=== PATIENT | female | born 1990 | race Caucasian/White ===

== ENCOUNTER 2024-05-27 06:59 | Outpatient (OUT) | payer OTHER, SELFPAY ==
--- NOTE | 2024-05-27 | US_ITS ---
[address] [address] Patient Name: PEPITO LYONS MRN: [id number] date: 1990 Sex: F Assigned Patient Location: Current Patient Location: US Accession/Order Number: [id number] Exam Date: 05/27/2024 07:15 Report Date: 05/27/2024 12:58 At the request of: GOLDEN YANG Procedure: US OB transvaginal EXAMINATION: US OB transvaginal HISTORY: Amenorrhea N91.2 COMPARISON: No relevant comparison available. FINDINGS: GESTATIONAL SAC: Present and normal appearing. YOLK SAC: Present and normal appearing. POLE: Present and normal appearing. CARDIAC: Present. UTERUS: Normal size and appearance. OVARIES: Right: Normal. Left: Normal. CERVIX: 5.1 cm in length and closed. CUL-DE-SAC: Normal. OTHER: None. AGE BY LMP: 17 weeks 5 days CHANDAN BY LMP: 01/08/2025 AGE BY US CRL: 6 weeks 6 days CHANDAN BY US CRL: 01/14/2025 US/US OB transvaginal IMPRESSION: 1. Single live intrauterine . Electronically authenticated by: MAKENNA MELISSA Date: 05/27/2024 12:58
== END 2024-05-27 07:00 | disposition home or self-care (01) ==
PROVIDERS: Visit Provider Midwife
DX: Z34.91 Encounter for supervision of normal pregnancy, unspecified, first trimester (principal); Z3A.01 Less than 8 weeks gestation of pregnancy; N91.2 Amenorrhea, unspecified
CPT/HCPCS: 76817

== ENCOUNTER 2024-11-19 19:58 | Outpatient (OUT) | payer OTHER, SELFPAY ==
--- NOTE | 2024-11-19 20:02 | US_ITS ---
[place] [address] Patient Name: PEPITO LYONS MRN: [facility]:[id number] date: 1990 Sex: F Assigned Patient Location: [facility] Current Patient Location: Accession/Order Number: [id number] Exam Date: 11/20/2024 10:06 Report Date: 11/20/2024 10:16 At the request of: GOLDEN YANG APRN, CNM Procedure: US OB BPP w non-stress Biophysical profile. Reason for exam: Type 1 diabetes COMPARISON: None TECHNIQUE: Transabdominal imaging of the gravid uterus was obtained. FINDINGS: The roving winder reports a BPP of 8 out of 8. MASON is normal at 13.6 cm. heart rate 139 bpm. US/US OB BPP w non-stress IMPRESSION: BPP 8 out of 8. Impression dictated by: Luc Echeverria Jr., D.O. 11/20/2024 10:16 AM Dictation Location: [place] [address] Electronically authenticated by: [id number] Y Date: 11/20/2024 10:16
[2024-11-19 20:26] VITALS: BP 129/76; PULSE 89
== END 2024-11-19 20:58 | disposition home or self-care (01) ==
LOC: US 19:59 → FBC 20:00
PROVIDERS: Visit Provider Midwife
DX: O24.913 Unspecified diabetes mellitus in pregnancy, third trimester (principal); Z3A.32 32 weeks gestation of pregnancy; E10.9 Type 1 diabetes mellitus without complications
CPT/HCPCS: 76818

== ENCOUNTER 2024-11-23 19:53 | Outpatient (OUT) | payer OTHER, SELFPAY ==
--- OUTSIDE RECORDS SUMMARY | 2024-11-09 15:50 | XMS_ITS | Encounter Summary ---
Author Organization [facility] Address [address] [address] Care Team Providers Care Rn Provider Relations Name Role Phone Unavailable Primary Care Provider Unavailabl e Reason for Visit * Reason Comments Routine Visit Encounter Details Date Type Department Care Team (Late st Contact Info) Description 11/09/2024 3:50 PM EDT Routine [facility] [address] [place] [phone] Gabriel Mendez DO [address] Ehsan [place], [facility]11 Third trimester ([facility]); 31 weeks gestation of ([facility]) Social History Tobacco Use Types Packs/Day Years Used Date Smoking Tobacco: Never Smokeless Tobacco: Never Alcohol Use Standard Drinks/Week Comments Not Currently 0 (1 standard drink = 0.6 oz pur e alcohol) Estimated Date of Delivery Comme nts Yes 01/14/2025 Based on Ultraso und Sex and Gender Information Value Date Recorded Sex Assigned at Not on file Legal Sex Female 2:11 PM EST Gender Identity Not on file Sexual Orientation Not on file documented as of this encounter Last Filed Vital Signs Vital Sign Reading Time Taken Comments Blood Pressure 114/68 11/09/2024 4:00 PM EDT Pulse - - Temperature - - Respiratory Rate - - Oxygen Saturation - - Inhaled Oxygen Concentration - - Weight 84.7 kg (186 lb 12.8 oz) 11/09/2024 4:00 PM EDT Height - - Body Mass Index 33.09 05/27/2024 8:49 AM EST documented in this encounter Progress Notes * Marielos Mccain LPN - 11/09/2024 3:50 PM EDT Reason for Appointment: Patient ID: Alyse Munguia is a 34 y.o. female who presents for Routine Visit Patient presents today for Consult appointment. MEDICATIONS Current Outpatient Medications Medication Instructions Acetone, Urine, Test (Ketone Test) strip Test urine if glucose over 200 aspirin 81 mg, Oral, Daily RT Continuous Glucose Sensor (FreeStyle Magan 3 Plus Sensor) misc USE DIRECTED REPLACING SENSOR EVERY 15 DAYS insulin lispro (HumaLOG Gregorio KwikPen) 100 UNIT/ML pen INJECT UP TO 50 UNITS PER DAY Lantus SoloStar 100 UNIT/ML pen 10 units [id number]-MF-[id number]-3 ( Gummies/DHA & FA) 0.4-32.5 MG chewable tablet Oral ReliOn Pen [place] 32G X 4 MM misc USE 5-6 TIMES DAILY WITH INSULIN ALLERGIES No Known Allergies PROBLEMS Active Ambulatory Problems Diagnosis Date Noted No Active Ambulatory Problems Resolved Ambulatory Problems Diagnosis Date Noted No Resolved Ambulatory Problems Past Medical History: Diagnosis Date History of benign brain tumor Type 1 diabetes (HCC) HISTORY PAST MEDICAL HISTORY SOCIAL HISTORY Past Medical History: Diagnosis Date History of benign brain tumor Type 1 diabetes (HCC) Social History Tobacco Use Smoking status: Never Smokeless tobacco: Never Substance Use Topics Alcohol use: Not Currently Drug use: Never FAMILY HISTORY No family history on file. SURGICAL HISTORY Past Surgical History: Procedure Laterality Date APPENDECTOMY BRAIN TUMOR EXCISION SECTION, LOW TRANSVERSE REVIEW OF SYSTEMS Review of Systems: Review of Systems Constitutional: Negative. HENT: Negative. Eyes: Negative. Respiratory: Negative. Cardiovascular: Negative. Gastrointestinal: Negative. Genitourinary: Negative. Musculoskeletal: Negative. Skin: Negative. Neurological: Negative. All other systems reviewed and are negative. Hematological: Negative. Endocrine: Negative. Allergic/Immunologic: Negative. OBJECTIVE Objective: Physical Exam Constitutional: Appearance: Normal appearance. She is well-developed. Cardiovascular: Rate and Rhythm: Normal rate and regular rhythm. Pulmonary: Effort: Pulmonary effort is normal. Breath sounds: Normal breath sounds. Abdominal: General: Bowel sounds are normal. There is no distension. Palpations: Abdomen is soft. Tenderness: There is no abdominal tenderness. There is no guarding or rebound. Musculoskeletal: General: No swelling. Normal range of motion. Right lower leg: No edema. Left lower leg: No edema. Neurological: Mental Status: She is alert and oriented to person, place, and time. Skin: General: Skin is warm and dry. Psychiatric: Mood and Affect: Mood normal. Behavior: Behavior normal. Vitals and nursing note reviewed. Exam conducted with a virtualization architect present. Vitals: Estimated body mass index is 33.09 kg/m?? as calculated from the following: Height as of 05/27/24: 5' 3 . Weight as of this encounter: 186 lb 12.8 oz. BP: 114/68 Patient's last menstrual period was 04/03/2024 (exact date). ASSESSMENT & PLAN ICD-10-CM 1. Third trimester ([facility]) Z34.93 2. 31 weeks gestation of ([facility]) Z3A.31 Patient presents to office for co-management for Type 1 DM in . Discussed delivery with patient and patient will have repeat on 12/16/24. Patient advised to ensure she is scheduledfor return OB with Rivka Thomas. Patient will continue with routine OB care schedule. Documented by Marielos Mccain LPN on behalf of: Gabriel Mendez DO documented in this encounter Plan of Treatment Upcoming Encounters Date Type Department Care Team (Late st Contact Info) Description 11/26/2024 8:30 AM EDT Routine [facility] [address] [place] [phone] Gabirel Mendez DO [address] [place] [address] 11/30/2024 5:00 PM EDT Routine [facility] [address] [place] [address] Floridalma Thomas CNM [address] [place], [place] [id number] 12/07/2024 5:30 PM EDT Routine [facility] [address] [place] [address] Floridalma Thomas CNM [address] [place], [place] [id number] 12/14/2024 5:00 PM EDT Routine [facility] [address] [place] [address] Floridalma Thomas CNM [address] [place], [place] [id number] documented as of this encounter Goals Goal Patient Goal Type Associated Problems Recent Progress Patient-Stated? Author Reminders Care Plan OB Reminders No Open Scheduling, Background documented as of this encounter Visit Diagnoses Diagnosis Third trimester ([facility]) state, incidental 31 weeks gestation of ([facility]) documented in this encounter Additional Health Concerns Active Problems Noted Date Diagnosed Date OB Reminders 07/14/2024 documented as of this encounter
--- OUTSIDE RECORDS SUMMARY | 2024-11-16 16:00 | XMS_ITS | Encounter Summary ---
Author Organization [facility] Address [address] [facility] [place] [address] Care Team Providers Care Reverberatory Furnace Operator Name Role Phone Unavailable Primary Care Provider Unavailabl e Encounter Details Date Type Department Care Team (Latest Contact Info) Description 11/16/2024 4:00 PM EDT [facility] [address] [place] [address] Floridalma Thomas, [place] [address] [place], [place] [phone] Third trimester ([facility]) (Primary Dx); Type 1 diabetes mellitus without complication (HCC); Insulin controlled gestational diabetes mellitus (GDM) in second trimester ([facility]); Encounter for supervision of other normal , third trimester ([facility]); Screening for iron deficiency anemia Social History [...] all orders for this visit: Third trimester ([facility]) Type 1 diabetes mellitus without complication (HCC) - US biophysical profile wo non stress testing; Future - US biophysical profile wo non stress testing; Future - US biophysical profile wo non stress testing; Future - US OB follow up transabdominal approach; Future Insulin controlled gestational diabetes mellitus (GDM) in second trimester ([facility]) Encounter for supervision of other normal , third trimester ([facility]) Patient drives from [place] for her appts and states she does not want to drive to [place] for Nstsand BPPs and growths. We can [...] AM EDT Rout[facility] [address] [place] [phone] Gabriel Mendez DO [address] [place] [address] 11/30/2024 5:00 PM EDT [facility] [address] [facility] [place] [phone] Floridalma Thomas CNM [address] [place] [address] 12/07/2024 5:30 PM EDT Routine [facility] [address] [facility] [place] [phone] Floridalma Thomas CNM [address] [place] [address] 12/14/2024 5:00 PM EDT [facility] [address] [place] [address] Floridalma Thomas CNM [address] [place] [address] Scheduled Orders Name Type Priority Associated Diagnoses [...] this encounter Visit Diagnoses Diagnosis Third trimester ([facility])- Primary state, incidental Type 1 diabetes mellitus without complication (HCC) Type I (juvenile type) diabetes mellitus without mention of complication, not stated as uncontrolled Insulin controlled gestational diabetes mellitus (GDM) in second trimester ([facility]) Encounter for supervision of other normal , third trimester ([facility]) Screening for iron deficiency anemia documented in this encounter Additional Health Concerns Active Problems Noted Date Diagnosed Date OB Reminders 07/14/2024 documented as of this encounter
--- OUTSIDE RECORDS SUMMARY | 2024-11-19 09:15 | XMS_ITS | Encounter Summary ---
Author Organization [employer] [facility] tem Address [id number] [address] [place] [address] Care Team Providers Care Decorating Equipment Setter Name Role Phone Unavailable Primary Care Provider Unavailabl e Encounter Details Date Type Department Care Team (Late st Contact Info) Description 11/19/2024 9:15 AM EDT Telemedicine [facility] [address] [place] [phone] Loi Pride MD [address] [place] [address] Type 1 diabetes mellitus during in third [...] from the original note were not included. [facility]- Diabetes Visit TELEMEDICINE VISIT: This is an audiovisual visit. This is done to assess the patient and to determine the best medical care. The patient was located in her parked car at work in [place] and the providerwas located at the medical office in [place]. The patient states they are not driving or taking care of other activities now. Consent to proceed obtained. Alyse Munguia is a 34 y.o. with type 1 diabetes. The patient was diagnosed at age 20 and has been treated with insulin. The patient's current regimen is: Omnipod pump The patient uses [employer] rosie 3+ to monitor her BG. The [...] of benign brain tumor Type 1 diabetes ([facility]) Past Surgical History: Procedure Laterality Date APPENDECTOMY [...] mouth in the morning., Disp: , Rfl: blood-glucose,rigger,cont (DEXCOM G7 TAG CLERK) misc, 1 each by miscellaneous route in [...] dinner, Disp: 30 mL, Rfl: 3 insulin telegraph service clerk cart,aut,G6/7,cntr (OMNIPOD 5 G6-G7 INTRO KT,GEN5,) cartridge, [...] order of 22% in those who have [id number] 8.5 and higher. Patient aware that maternal [...] lead to foot injury. Please refer to [facility] note regarding timing of delivery and care. Follow up in 1-2 weeks while october10/26/24. LOI PRIDE MD [facility] documented in this encounter Plan of Treatment Upcoming Encounters Date Type Department Care Team (Late st Contact Info) Description 12/02/2024 9:00 AM EDT Office Visit [facility] [address] [place] [address] Loi Pride MD [address] [place] [address] 12/14/2024 8:00 AM EDT Telemedicine Maternal- Medicine at [place] [id number] [place] [phone] Chad Gregg MD [address] [facility] [place] [address] documented as of this encounter Visit Diagnoses Diagnosis Type 1 diabetes mellitus during in third trimester- Primary documented in this encounter
--- OUTSIDE RECORDS SUMMARY | 2024-11-23 19:56 | XMS_ITS | Clinical Summary ---
Author Organization [facility] Address [address] [facility], [address] [place] [address] Care Team Providers Care Music Therapist [employer] Name Role Phone Unavailable Primary Care Provider Unavailabl e Allergies No known active allergies Medications Continuous Blood Gluc Hand Washer (FREESTYLE ILIANA 2 READER SYSTM) DEVIIndications:Un controlled type 1 diabetes mellitus with hyperglycemia (HCC) Use as directed to check glucose 1 Device 1 Active Continuous Blood Gluc Sensor (FREESTYLE ILIANA 2 SENSOR SYSTM) MISCIndications:Un controlled type 1 diabetes mellitus with hyperglycemia (HCC) Change every 14 days 2 each 3 1 Active Continuous Blood Gluc Sensor (FREESTYLE ILIANA 2 SENSOR) MISC 1 each by Does not apply route every 14 days 2 each 5 1 Active blood glucose test strips (EXACTECH TEST) stripIndications:U ncontrolled type 1 diabetes mellitus with hyperglycemia (HCC) 4 times daily. 300 strip 3 1 Active insulin NPH (HUMULIN N;NOVOLIN N) 100 UNIT/ML injection pen 16 units in AM, 8 units at night 5 pen 3 1 Active insulin lispro, 1 Unit Dial, (HUMALOG KWIKPEN) 100 UNIT/ML SOPNIndications:Un controlled type 1 diabetes mellitus with hyperglycemia (HCC) Inject up to 10 units into the skin before meals three times daily. 5 pen 3 08/04/202 1 Active Active Problems Problem Noted Date Diagnosed Date 11/23/2020 Uncontrolled type 1 diabetes mellitus with hyper glycemia 02/03/2020 Overweight (BMI 25.0-29.9) 10/06/2018 Hypercholesterolemia 10/28/2017 DKA (diabetic ketoacidoses) 08/20/2016 Overview (01/22/2023): Replacing diagnoses that were inactivated after the 01/20/2023 regulatory import Brain mass 08/20/2016 Encounters Date Type Department Care Team Description 10/14/2024 Transcribe Orders [facility] [address] [place], [place] [id number] Floridalma Thomas APRN - CNM Amniotic fluid leaking (Primary Dx) from Last 3 Months Family History Medical History Relation Name Comments No Known Problems Brother No Known Problems Father No Known Problems Mother No Known Problems Sister Relation Name Status Comments Brother Alive Father Alive Mother Alive Sister Alive Social History Tobacco Use Types Packs/Day Years Used Date Smoking Tobacco: Never Smokeless Tobacco: Never Alcohol Use Standard Drinks/Week Comments Yes 0 (1 standard drink = 0.6 oz pur e alcohol) occ PHQ-2 Answer Date Recorded PHQ-2 Score 0 07/23/2018 Comments Unknown Sex and Gender Information Value Date Recorded Sex Assigned at Not on file Legal Sex Female 9:51 AM EDT Gender Identity Not on file Sexual Orientation Not on file Last Filed Vital Signs Vital Sign Reading Time Taken Comments Blood Pressure 120/77 11/23/2020 12:19 PM EDT Pulse 80 11/23/2020 12:19 PM EDT Temperature 36.7 C (98 F) 11/23/2020 12:19 PM EDT Respiratory Rate 14 11/23/2020 12:19 PM EDT Oxygen Saturation 99% 11/23/2020 12:19 PM EDT Inhaled Oxygen Concentration - - Weight 72.6 kg (160 lb) 11/23/2020 12:19 PM EDT Height 160 cm (5' 3 ) 11/23/2020 12:19 PM EDT Body Mass Index 28.34 11/23/2020 12:19 PM EDT Plan of Treatment Health Maintenance Due Date Last Done Comments Depression Screen 2004 Varicella vaccine (1 of 2 - 13+ 2-dose series) 2005 Diabetic retinal exam 2010 DTaP/Tdap/Td vaccine (1 - Tdap) 06/29/2011 Hepatitis B vaccine (1 of 3 - 19+ 3-dose series) 06/29/2011 Pneumococcal 0-49 years Vaccine (1 of 2 - PCV) 06/29/2011 Diabetic Alb to Cr ratio (uACR) test 05/11/2021 05/11/2020, 02/03/2020, 10/15/2019, Additional history exists Diabetic foot exam 05/11/2021 05/11/2020, 0 10/15/2019, 10/06/2018, Additional history exists GFR test (Diabetes, CKD 3-4, OR last GFR 15-59) 05/11/2021 05/11/2020, 02/03/2020, 10/15/2019, Additional history exists Lipids 05/11/2021 05/11/2020, 01/20, 10/15/2019, Additional history exists Pap smear 06/13/2021 06/13/2018, 06/07/2017 A1C test (Diabetic or Prediabetic) 08/24/2021 08/24/2020, 05/11/2020, 02/03/2020, Additional history exists Cervical cancer screen 2022 HPV (without or with Pap) 2022 COVID-19 Vaccine ( - season) 2023 Flu vaccine (#1) 11/20/2024 HIV screen Completed 06/07/2017 Hepatitis C screen Completed 06/07/2017 HPV vaccine Aged Out No longer eligi ble based on patient's age to complete this topic Hepatitis A vaccine Aged Out No longe r eligible based on patient's age to complete this topic Hib vaccine Aged Out No longer eligi ble based on patient's age to complete this topic Meningococcal (ACWY) vaccine Aged Out No longer eligible based on patient's age to complete this topic Meningococcal B vaccine Aged Out No l onger eligible based on patient's age to complete this topic Polio vaccine Aged Out No longer elig ible based on patient's age to complete this topic Procedures Procedure Name Priority Date/Time Associated Diagnosis Comments POCT GLYCOSYLATED HEMOGLOBIN (HGB A1C) Routine 08/24/2020 8:00 AM EDT Uncontrolled type 1 diabetes mellitus with hyperglycemia (HCC) ALBUMIN/CREATININE RATIO, URINE Routine 05/11/2020 8:21 AM EST Uncontrolled type 1 diabetes mellitus with hyperglycemia (HCC) COMPREHENSIVE METABOLIC PANEL Routine 05/11/2020 8:11 AM EST Uncontrolled type 1 diabetes mellitus with hyperglycemia (HCC) LIPID PANEL Routine 05/11/2020 8:11 AM EST Uncontrolled type 1 diabetes mellitus with hyperglycemia (HCC) PAP SMEAR Routine 06/13/2018 9:00 AM EST HIV SCREEN Routine 06/07/2017 9:16 AM EST HEPATITIS C ANTIBODY Routine 06/07/2017 9:16 AM EST from Last 3 Months or Most Recently Relevant to Health Maintenance Results * (ABNORMAL) POCT glycosylated hemoglobin (Hb A1C) (08/24/2020 8:00 AM EDT) Hemoglobin A1C 10.4 % BLOOD SPECIMEN / Unknown 08/24/2020 8:00 AM EDT Stefany Tariq MD POINT OF CARE TEST ORDERABLES F inal Result * Microalbumin / Creatinine Urine Ratio (05/11/2020 8:21 AM EST) Microalb, Ur <1.20 <2.0 mg/dL 05/11/2020 4:06 PM [facility] Creatinine, Ur 111.9 28.0 - 259.0 mg/dL 05/11/2020 4:06 PM [facility] Albumin/Creatinin e Ratio see below 0.0 - 30.0 mg/g 05/11/2020 4:06 PM [facility] Comment: Ratio cannot be calculated since microalbumin level is below the lower detection limit. URINE SPECIMEN / Unknown 05/11/2020 8:21 AM EST 05/11/2020 3:11 PM EST Narrative [facility] - 05/11/2020 4:26 PM EST Performed at: [facility] [address] [place] [address] [place] Stefany Tariq MD URINE ORDERABLES Final Result Performing Organization Address City/[facility]/ZIP Co de Phone Number [facility] [address] [place] [address] * (ABNORMAL) Lipid Panel (05/11/2020 8:11 AM EST) Cholesterol, Total 198 0 - 199 mg/dL 05/11/2020 3:45 PM EST [facility] Triglycerides 100 0 - 150 mg/dL 05/11/19 3:45 PM EST [facility] HDL 95(H) 40 - 60 mg/dL 05/11/2020 3:45 PM EST [facility] LDL Calculated 83 <100 mg/dL 05/11/2020 3:45 PM EST [facility] VLDL Cholesterol Calculated 20 Not Established mg/dL 05/11/2020 3:45 PM EST [facility] BLOOD SPECIMEN / Unknown 05/11/2020 8:11 AM EST 05/11/2020 3:11 PM EST Narrative [facility] - 05/11/2020 4:12 PM EST Performed at: [facility] [address] [place] [address] us Stefany Tariq MD CHEMISTRY ORDERABLES Final Resu lt Performing Organization Address City/[facility]/ZIP Co de Phone Number [facility] [address] [place] [address] * Comprehensive Metabolic Panel (05/11/2020 8:11 AM EST) Sodium 140 136 - 145 mmol/L 05/11/2020 3:45 PM [facility] Potassium 4.6 3.5 - 5.1 mmol/L 05/11/2020 3:45 PM [facility] Chloride 101 99 - 110 mmol/L 05/11/2020 3:45 PM [facility] CO2 27 21 - 32 mmol/L 05/11/2020 3:45 PM [facility] Anion Gap 12 3 - 16 05/11/2020 3:45 PM [facility] Glucose 97 70 - 99 mg/dL 05/11/2020 3:45 PM [facility] BUN 11 7 - 20 mg/dL 05/11/2020 3:45 PM [facility] Creatinine 0.6 0.6 - 1.1 mg/dL 05/11/2020 3:45 PM [facility] GFR Non- >60 >60 05/11/2020 3:45 PM [facility] Comment: >60 mL/min/1.73m2 EGFR, calc. for ages 18 and older using the MDRD formula (not corrected for weight), is valid for stable renal function. GFR >60 >60 05/11/2020 3:45 PM [facility] Comment: Chronic Kidney Disease: less than 60 ml/min/1.73 sq.m. Kidney Failure: less than 15 ml/min/1.73 sq.m. Results valid for patients 18 years and older. Calcium 9.7 8.3 - 10.6 mg/dL 05/11/2020 3:45 PM [facility] Total Protein 6.7 6.4 - 8.2 g/dL 05/11/2020 3:45 PM [facility] Albumin 4.1 3.4 - 5.0 g/dL 05/11/2020 3:45 PM [facility] Albumin/Globulin Ratio 1.6 1.1 - 2.2 05/11/2020 3:45 PM [facility] Total Bilirubin 0.4 0.0 - 1.0 mg/dL 05/11/2020 3:45 PM EST [facility] Alkaline Phosphatase 69 40 - 129 U/L 05/11/2020 3:45 PM EST [facility] ALT 20 10 - 40 U/L 05/11/2020 3:45 PM EST [facility] AST 24 15 - 37 U/L 05/11/2020 3:45 PM EST [facility] Globulin 2.6 g/dL 05/11/2020 3:45 PM EST [facility] BLOOD SPECIMEN / Unknown 05/11/2020 8:11 AM EST 05/11/2020 3:11 PM EST [facility] - 05/11/2020 4:26 PM EST Performed at: [facility] [address] [place] [address] us Stefany Tariq MD CHEMISTRY ORDERABLES Final Resu lt [facility] [address] [place] [address] * PAP SMEAR (06/13/2018 9:00 AM EST) 06/13/2018 9:00 AM EST 06/16/2018 7:42 AM EST [facility] - 06/18/2018 3:46 [place] [address] . [phone] Department of Pathology FINAL CYTOLOGY PAP REPORT Patient Name: ALYSE PATEL Accession No: [id number] Age Sex: 1990 27 Y / F Location: [facility] Account No: [id number] Collected: 06/13/2018 Med Rec No: [id number] Received: 06/16/2018 Attend Phys: HAZEL RAMOS MD Completed: 06/18/2018 Perform Phys: HAZEL RAMOS MD GENERAL CATEGORIZATION: Negative for Intraepithelial Lesion or Malignancy SPECIMEN ADEQUACY: Satisfactory for Evaluation. Endocervical cells/transformation zone component present. Specimen: THINPREP LIQUID BASE IMAGED DIAGNOSTIC, CERVICAL ENDOCERVICAL History: No Prior Abnormal Smear: No CPT: Technical: 33726 X1 Case signed out at [facility], [address] [place] [address] Specimen was processed and screened at [facility], [address] [place] [address] Our Cytology Laboratory uses the ThinPrep Sulfate Drier Machine Operator to automatically screen all ThinPrep Pap smears. The ThinPrep Sulfate Drier Machine Operator is approved by the FDA for this purpose, and enables our laboratory to apply a single quality assurance supervisor trim standard on these Pap smears. Upon initial screening of cases, this instrument identifies cases requiring additional manual review or additional quality assurance supervisor trim rescreening. Cervical cytology is a screening test primarily for squamous cancers and precursors and has associated false negative and positive results. New technologies such as liquid based sampling may decrease but not eliminate all false negative results. Please refer to established guidelines. Screened By: Rescreened By: MATHIEU BARNETT CT(ASCP) CT(ASCP) Electronically signed out by 06/18/2018 Page 1 of 1 Hazel Vang MD PATHOLOGY/CYTOLOGY ORDERA BLES Final Result [facility] [address] [place] [address], [facility] [phone] * Hepatitis C Antibody (06/07/2017 9:16 AM EST) Hep C Ab Interp Non-reacti ve Non-reacti ve 06/07/2017 9:07 PM EST [facility] 06/07/2017 9:16 AM EST 06/07/2017 4:46 PM EST Hazel Vang MD IMMUNOLOGY ORDERABLES Fin al Result [facility] * HIV Screen (06/07/2017 9:16 AM EST) HIV Ag/Ab Non-Reacti ve Non-reacti ve 06/10/2017 9:50 AM EST [facility] HIV-1 Antibody Non-Reacti ve Non-reacti ve 06/10/2017 9:50 AM EST [facility] HIV ANTIGEN Non-Reacti ve Non-reacti ve 06/10/2017 9:50 AM EST [facility] HIV-2 Ab Non-Reacti ve Non-reacti ve 06/10/2017 9:50 AM EST [facility] 06/07/2017 9:16 AM EST 06/07/2017 4:46 PM EST Hazel Vang MD IMMUNOLOGY ORDERABLES Fin al Result [facility] from Last 3 Months or Most Recently Relevant to Health Maintenance Insurance [address] [place] [address] [employer] Advance Directives * Full Code (Latest Code Status on File) Date Activated Date Inactivated Comments 08/20/2016 6:44 PM 08/23/2016 2:21 PM * Full Code Date Activated Date Inactivated Comments 08/20/2016 5:42 PM 08/20/2016 6:44 PM
--- OUTSIDE RECORDS SUMMARY | 2024-11-23 19:56 | XMS_ITS | Encounter Summary ---
Author Organization [facility] Address [id number] [address] [place] [address] Care Team Providers Care Equipment Planner Name Role Phone Unavailable Primary Care Provider Unavailabl e Encounter Details Date Type Department Care Team (Late st Contact Info) Description 11/17/2024 Telephone Maternal- Medicine at [facility] [address] [facility] [place] [address] Michelle Siegel, RN Social History Tobacco Use Types Packs/Day Years [...] on file documented as of this encounter Miscellaneous Notes * Telephone Encounter - Michelle Siegel RN - 11/17/2024 3:59 PM EDT Call received from Rivka Thomas CNM regarding discrepancies in patient's CHANDAN. Dowel Pointer reviewed with Dr. Gregg and confirmed CHANDAN 01/14/25 based on early ultrasound (+6 day difference from LMP). Returned call to [facility] and left voicemail for Fatuma regarding above. Criteria for when to change CHANDAN per ACOG, AIUM, SMFM form faxed to [facility] per Dr. Gregg's request. Upon chart review, patient has not been seen by [facility] since first trimester. Attempted to contact patient to schedule appointment per recommendations. No answer. MyChart Video visit scheduled for 12/14/24 due to limited availability. LVM requesting patient return call to either confirm or reschedule appointment. Provider office phone number for return call. documented in this encounter Plan of Treatment Upcoming Encounters Date Type Department Care Team (Late st Contact Info) Description 12/02/2024 9:00 AM EDT Office Visit [facility] [address] [place] [address] Dolores Pride MD [address] [place] [address] 12/14/2024 8:00 AM EDT Telemedicine Maternal- Medicine at [facility] [address] [place] [address] Chad Gregg MD [address] [place] [address] documented as of this encounter Visit Diagnoses Diagnosis Type 1 diabetes mellitus in , first trimester- Primary documented in this encounter
--- OUTSIDE RECORDS SUMMARY | 2024-11-23 19:56 | XMS_ITS | Encounter Summary ---
Author Organization [facility] Address [address] [address] Care Team Providers Care Burglar Alarm Mechanic Name Role Phone Unavailable Primary Care Provider Unavailabl e Encounter Details Date Type Department Care Team (Late Contact Info) Description 11/09/2024 Bamboo flowsheet [facility] [address] [place] [address] Gabriel Mendez DO [address] [place] [address] Dr Ehsan [place], [facility] Social History Tobacco Use Types Packs/Day Years [...] on file documented as of this encounter Plan of Treatment Upcoming Encounters Date Type Department Care Team (Late Contact Info) Description 11/26/2024 8:30 AM EDT Routine [facility] [address] [place] [address] Gabriel Mendez DO [address] [place] [address] [place], [place] [id number] 11/30/2024 5:00 PM EDT Routine [facility] [address] [facility] [address] Floridalma Thomas, CNM [address] [place] [address] 12/07/2024 5:30 PM EDT Routine [facility] [address] [facility] [place] [place] [id number] Floridalma Thomas, CNM [address] [facility] [place] [address] 12/14/2024 5:00 PM EDT Routine [facility] [address] [facility] [place] [address] [place] [phone] Floridalma Thomas, [place] [address] [place] [place] [address] documented as of this encounter Goals Goal Patient Goal Type Associated Problems Recent Progress Patient-Stated? Author Reminders Care Plan OB Reminders No Open Scheduling, Background documented as of this encounter Visit Diagnoses Not on filedocumented in this encounter Additional Health Concerns Active Problems Noted Date Diagnosed Date OB Reminders 07/14/2024 documented as of this encounter
--- OUTSIDE RECORDS SUMMARY | 2024-11-23 19:56 | XMS_ITS | Clinical Summary ---
Author Organization [facility] Address [address] [place] [address] Care Team Providers Care Psychiatric Lpn Name Role Phone Unavailable Primary Care Provider Unavailabl e Allergies No known active allergies Medications insulin lispro (HumaLOG Gregorio KwikPen) 100 UNIT/ML pen INJECT UP TO 50 UNITS PER DAY Active HO-Dxu-TP-[place] -3 ( Gummies/DHA & FA) 0.4-32.5 MG chewable tablet Chew Acti ve Acetone, Urine, Test (Ketone Test) strip Test urine if glucose over 200 5 Active aspirin 81 MG EC tablet Take 81 mg by mouth in the morning. Active Continuous Glucose Sensor (FreeStyle Magan 3 Plus Sensor) misc USE DIRECTED REPLACING SENSOR EVERY 15 DAYS 5 Active Lantus SoloStar 100 UNIT/ML pen 10 units 5 Active ReliOn Pen [place] 32G X 4 MM misc USE 5-6 TIMES DAILY WITH INSULIN 5 Active Encounters Date Type Department Care Team Description 11/23/2024 [facility] [address] [place] [address] Golden Thomas CNM 11/20/2024 Clinisync Result Encounter [facility] External Department Unsolicited Golden Thomas CNM 11/17/2024 [facility] [address] [place] [address] Golden Thomas CNM 11/16/2024 4:00 PM EDT Routine [facility] [address] [place] [address] Golden Thomas CNM Third trimester ([facility]) (Primary Dx); Type 1 diabetes mellitus without complication (HCC); Insulin controlled gestational diabetes mellitus (GDM) in second trimester ([facility]); Encounter for supervision of other normal , third trimester ([facility]); Screening for iron deficiency anemia 11/16/2024 Bamboo flowsheet [facility] [address] [place] [address] Golden Thomas CNM 11/09/2024 3:50 PM EDT Routine [facility] [address] [address] Gabriel Mendez DO Third trimester ([facility]); 31 weeks gestation of ([facility]) 11/09/2024 Bamboo flowsheet [facility] [address] [place] [address] [place] [address] Gabriel Mendez DO 11/09/2024 Travel 11/02/2024 4:30 PM EDT Ancillary Procedure [facility] [address] [address] related condition in third trimester ([facility]) 11/02/2024 Travel 10/26/2024 Travel 10/21/2024 Orders Only [facility] [address] [place] [address] Golden Thomas CNM related condition in third trimester ([facility]) 10/14/2024 8:30 AM EDT Routine [facility] [address] [place] [address] Golden Thomas CNM Type 1 diabetes mellitus without complication (HCC) (Primary Dx); related condition in third trimester ([facility]); Amniotic fluid leaking ([facility]); Encounter for supervision of other normal , second trimester ([facility]) 10/14/2024 Bamboo flowsheet [facility] [address] [place] [address] Golden Thomas CNM 10/13/2024 Travel 09/16/2024 8:30 AM EDT Routine [facility] [address] [place] [address] Golden Thomas CNM Insulin controlled gestational diabetes mellitus (GDM) in second trimester ([facility]) (Primary Dx); Encounter for supervision of other normal , second trimester ([facility]); Type 1 diabetes mellitus without complication (HCC) 09/16/2024 Bamboo flowsheet [facility] [address] [place] [address] Golden Thomas CNM 09/09/2024 Travel from Last 3 Months Family History Relation Name Status Comments Father Mother Alive Social History Tobacco Use Types Packs/Day Years Used Date Smoking Tobacco: Never Smokeless Tobacco: Never Tobacco Cessation:Counseling Given: Not Answered Alcohol Use Standard Drinks/Week Comments Not Currently [...] (186 lb) 11/16/2024 4:04 PM EDT Height 160 cm (5' 3 ) 05/27/2024 8:49 AM EST Body Mass Index 32.95 05/27/2024 8:49 AM EST Plan of Treatment Upcoming Encounters Date Type Department Care Team (Late st Contact Info) Description 11/26/2024 8:30 AM EDT Routine [facility] [address] [place] [address] Gabriel Mendez, [address] [place], [place] [address] [address] 11/30/2024 5:00 PM EDT Routine [facility] [address] [place] [address] Golden Thomas, CNM [address] [place] [address] 12/07/2024 5:30 PM EDT Routine [facility] [address] [place] [address] Golden Thomas, CNM [address] [place] [address] 12/14/2024 5:00 PM EDT Routine [facility] [address] [place] [address] Golden Thomas, CNM [address] [place] [address] Goals Goal Patient Goal Type Associated Problems Recent Progress Patient-Stated? Author Reminders Care Plan OB Reminders No Open Scheduling, Background Procedures Procedure Name Priority Date/Time Associated Diagnosis Comments US OB BPP W NON-STRESS 11/20/2024 10:16 AM EDT US OB FOLLOW UP TRANSABDOMINAL APPROACH Routine 11/02/2024 4:37 PM EDT related condition in third trimester ([facility]) from Last 3 Months Results * US OB BPP W NON-STRESS (11/20/2024 10:16 AM EDT) Anatomical Region Laterality Modality Other 11/20/2024 10:1 6 AM EDT Narrative 11/20/2024 10:19 AM EDT [facility] [place] [id number] Ultrasound Report Signed Patient: ALYSE MUNGUIA MR#: [id number] : 1990 Acct:[id number] Age/Sex: 34 / F ADM Date: 11/19/24 Loc: US Attending Dr: GOLDEN THOMAS APRN, CNM Ordering Physician: GOLDEN THOMAS APRN, CNM Date of Service: 11/19/24 Procedure(s): US OB BPP w non-stress Accession Number(s): [id number] cc: GOLDEN THOMAS APRN, CNM; Physician,Non-Staff MGraciela The [address] [address] Patient Name: ALYSE MUNGUIA MRN: [id number] date: 1990 Sex: F Assigned Patient Location: [facility] Current Patient Location: Accession/Order Number: [id number] Exam Date: 11/20/2024 10:06 Report Date: 11/20/2024 10:16 At the request of: GOLDEN THOMAS APRN, CNM Procedure: US OB BPP w non-stress Biophysical profile. Reason for exam: Type 1 diabetes COMPARISON: None TECHNIQUE: Transabdominal imaging of the gravid uterus was obtained. FINDINGS: The panel flow machine operator reports a BPP of 8 out of 8. MASON is normal at 13.6 cm. heart rate 139 bpm. US/US OB BPP w non-stress IMPRESSION: BPP 8 out of 8. Impression dictated by: Luc Echeverria Jr., D.O. 11/20/2024 10:16 AM Dictation Location: [place] [address] Electronically authenticated by: [id number] Y Date: 11/20/2024 10:16 Dictated By: Luc Echeverria M.D. Signed By: 11/20/24 1019 DD/ 1016 TD/TT: Disk Recordist: Procedure Note Radiology, Radiologist, - 11/20/2024 [facility] [place] [id number] Ultrasound Report Signed Patient: MOLLY MUNGUIA#: [id number] : 1990Acct:[id number] Age/Sex: 34 / FADM Date: 11/19/24 Loc: US Attending Dr: GOLDEN THOMAS APRN, CNM Ordering Physician: GOLDEN THOMAS APRN, CNM Date of Service: 11/19/24 Procedure(s): US OB BPP w non-stress Accession Number(s): [id number] cc: GOLDEN THOMAS APRN, CNM; Physician,Non-Staff MGraciela [place] [address] Patient Name: ALYSE MUNGUIA MRN: [facility]:[id number] date: 1990 Sex: F Assigned Patient Location: [facility] Current Patient Location: Accession/Order Number: [id number] Exam Date: 11/20/2024 10:06 Report Date: 11/20/2024 10:16 At the request of: GOLDEN THOMAS APRN, CNM Procedure: US OB BPP w non-stress Biophysical profile. Reason for exam: Type 1 diabetes COMPARISON: None TECHNIQUE: Transabdominal imaging of the gravid uterus was obtained. FINDINGS: The panel flow machine operator reports a BPP of 8 out of 8. MASON is normal at13.6 cm. heart rate 139 bpm. US/US OB BPP w non-stress IMPRESSION: BPP 8 out of 8. Impression dictated by: Luc Echeverria Jr., D.O. 11/20/2024 10:16 AM Dictation Location: [place] [address] Electronically authenticated by: [id number] Y Date: 0:16 Dictated By: Luc Echeverria M.D. Signed By:11/20/24 1019 DD/ 1016 TD/TT: Disk Recordist: us Golden Thomas CNM [facility] Final Resu lt * US OB follow up transabdominal approach (11/02/2024 4:37 PM EDT) Anatomical Region Laterality Modality Body Ultrasound 11/04/2024 6:28 PM EDT Impressions 11/05/2024 8:15 AM EDT Single, live intrauterine , current sonographic age of 30 weeks and 3 days, with an estimated date of delivery of January 08, 2025. * Estimated Weight (g) by Percentile is based upon an accurate estimated age based on last menstrual period. TRANSCRIBED BY: ELECTRONICALLY SIGNED BY: Luc Carter MD Narrative 11/05/2024 8:15 AM EDT FINDINGS: A single, live intrauterine is present with normal cardiac rate of 134 beats per minute. Normal activity and amniotic fluid volume. Amniotic fluid index is 16 cm. Morphology is grossly normal. The cervix is long and closed, 6.3 cm. The placenta is posterior, not associated with the cervical os. The current sonographic age is 30 weeks and 3 days, based on the following measurements: BPD 7.8 cm (31 weeks, 1 day) Head Circumference 28.1 cm (30 weeks, 5 days) Abdominal Circumference 25.8 cm (30 weeks, 0 days) Femur Length 5.6 cm (29 weeks, 4 days) Presentation Cephalic Placenta Posterior Grade I Weight (g) by Percentile 52.4% * These measurements result in an estimated date of delivery of January 08, 2025 The current estimated weight is 1493 grams (3 pounds, 5 ounces). Procedure Note Luc Carter MD - 11/05/2024 FINDINGS: A single, live intrauterine is present with normal cardiacrate of 134 beats per minute. Normal activity and amniotic fluidvolume. Amniotic fluid index is 16 cm. Morphology is grossly normal. Thecervix is long and closed, 6.3 cm. The placenta is posterior, notassociated with the cervical os. The current sonographic age is 30 weeksand 3 days, based on the following measurements: BPD 7.8 cm (31 weeks, 1 day) Head Circumference 28.1 cm (30 weeks, 5 days) Abdominal Circumference 25.8 cm (30 weeks, 0 days) Femur Length 5.6 cm (29 weeks, 4 days) Presentation Cephalic Placenta Posterior Grade I Weight (g) by Percentile 52.4% * These measurements result in an estimated date of delivery of 2024 The current estimated weight is 1493 grams (3 pounds, 5ounces). IMPRESSION: Single, live intrauterine , current sonographic age of 30 weeksand 3 days, with an estimated date of delivery of January 08, 2025. * Estimated Weight (g) by Percentile is based upon an accurateestimated age based on last menstrual period. TRANSCRIBED BY: ELECTRONICALLY SIGNED BY: Luc Carter MD us Golden [facility] OB US PROCEDURES Final R esult from Last 3 Months Additional Health Concerns Active Problems Noted Date Diagnosed Date OB Reminders 07/14/2024 Insurance [employer]
--- OUTSIDE RECORDS SUMMARY | 2024-11-23 19:56 | XMS_ITS | Clinical Summary ---
Author Organization [employer] tem Address [id number] [address] 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 Active FREESTYLE ILIANA 3 PLUS SENSOR device USE DIRECTED REPLACING SENSOR EVERY 15 DAYS 5 Active DOCOSAHEXAENOI C ACID ORAL Take by mouth. Act christiana docusate sodium (COLACE) 100 mg capsule Take 1 capsule (100 mg total) by mouth in the morning and 1 capsule (100 mg total) before bedtime. Active pen needle, diabetic 32 gauge x 5/32 needle USE 5-6 TIMES DAILY WITH INSULIN 5 Active acetone, urine, test (KETONE URINE TEST) strip Test urine if glucose over 200 100 strip 6 5 Active insulin gluing machine operator cart,aut,G6/7, cntr (OMNIPOD 5 G6-G7 INTRO KT,GEN5,) cartridgeIndic ations:Type 1 diabetes mellitus in , first trimester Inject 1 each under the skin every 3 (three) days. 1 each 5 Active blood-glucose, bailiff,cont (DEXCOM G7 DESKTOP MANAGER) miscIndication s:Type 1 diabetes mellitus during in second trimester 1 each by miscellaneous route in the morning. 1 each 5 Active insulin glargine (LANTUS SOLOSTAR U-100 INSULIN) 100 unit/mL (3 mL) insulin penIndications :Type 1 diabetes mellitus during in second trimester Inject 11 units subQ at bedtime. 5 Active insulin lispro (HumaLOG) 100 unit/mL injectionIndic ations:Type 1 diabetes mellitus during in second trimester Give 1:6 for breakfast, 1:5 for lunch, 1:5 for dinner 30 mL 3 5 Active Active Problems Patient Care Coordination No te Formatting of this note is d ifferent from the original. Insulin Instructions Pump Settings insulin lispro 100 unit/mL injection (HumaLOG) Last edited by Dolores Pride MD on 11/23/2024 at 1:15 PM Basal Rate Total Basal Dose: 13.3 units/day Time units/hr 12:00 AM 0.4 6:00 AM 0.7 11:00 AM 0.6 4:00 PM 0.6 8:00 PM 0.5 Blood Glucose Target Time mg/dL 12:00 AM 110 - 110 Sensitivity Factor Time mg/dL/unit 12:00 AM 50 Carb Ratio Time g/unit 12:00 AM 15 6:00 AM 9 11:00 AM 7 4:00 PM 7 8:00 PM 8 Problem Noted Date Diagnosed Date History of shoulder dystocia in prior , currently 06/24/2024 History of delivery, antepartum 025 Type 1 diabetes mellitus dur ing in second trimester 06/17/2024 Estimated Date of Delivery Comme nts Yes 01/14/2025 Based on Ultraso und Encounters Date Type Department Care Team Description 11/23/2024 Orders Only [facility] [address] [place] [address] Dolores Pride MD 11/19/2024 9:15 AM EDT Telemedicine [facility] [address] [place] [address] Dolores Pride MD Type 1 diabetes mellitus during in third trimester (Primary Dx) 11/19/2024 Travel 11/17/2024 Telephone Maternal- Medicine at [facility] [address] [place] [address] Michelle Siegel, RN 11/09/2024 Orders Only [facility] [address] [place] [place] [address] Dolores Pride MD 11/09/2024 Telephone [facility] [address] [place] [address] Keeley Robles CMA 11/05/2024 11:00 AM EDT Telemedicine [facility] [address] [facility] [place] [address] Dolores Pride MD Type 1 diabetes mellitus during in third trimester (Primary Dx) 11/05/2024 Travel 11/02/2024 Travel 10/26/2024 12:00 PM EDT Telemedicine [facility] [address] [place] [address] Dolores Pride MD Type 1 diabetes mellitus during in second trimester (Primary Dx) 10/26/2024 Travel 10/21/2024 Orders Only Maternal- Medicine at [place] [address] [place] [address] Chad Gregg MD Type 1 diabetes mellitus during in second trimester 10/21/2024 Documentation Maternal- Medicine at [facility] [address] [place] [address] Treasure Freeman, CAMPOS 10/20/2024 Telephone Maternal- Medicine at [facility] [address] [place] [address] Shireen Lopez, CAMPOS 10/15/2024 11:00 AM EDT Telemedicine [facility] [address] [place] [address] Dolores Pride MD Type 1 diabetes mellitus during in second trimester (Primary Dx) 10/14/2024 Travel 10/07/2024 Orders Only [facility] [address] [place] [address] Dolores Pride MD 10/06/2024 Orders Only [facility] [address] [place] [address] Dolores Pride MD 10/01/2024 10:00 AM EDT Telemedicine [facility] [address] [facility] [place] [address] Dolores Pride MD Type 1 diabetes mellitus during in second trimester 09/30/2024 Travel 09/24/2024 8:00 AM EDT Telemedicine [facility] [address] [place] [address] Dolores Pride MD Type 1 diabetes mellitus during in second trimester (Primary Dx) 09/23/2024 Travel 09/09/2024 Orders Only [facility] [address] [facility] [place] [address] Dolores Pride MD 09/09/2024 Telephone [facility] [address] [place] [address] Shireen Lopez RN 09/08/2024 Travel 08/31/2024 Orders Only [facility] [address] [place] [address] Dolores Pride MD Type 1 diabetes mellitus during in second trimester 08/31/2024 Telephone Maternal- Medicine at [address] [address] Melony Roy, RN Appointment 08/27/2024 Telephone Maternal- Medicine at [address] [place] [address] Antoniodany Margret 08/26/2024 1:00 PM EDT Telemedicine [facility] [address] [place] [address] Dolores Pride MD Type 1 diabetes mellitus in , first trimester (Primary Dx); Type 1 diabetes mellitus during in second trimester 08/24/2024 7:59 AM EDT - 08/24/2024 11:59 PM EDT Hospital Encounter [facility] [address] [place] [address] Type 1 diabetes mellitus in , first trimester Discharge Disposition: Home 08/24/2024 Telephone Maternal- Medicine at [facility] [address] [place] [address] Musa Coleman MD 08/24/2024 Travel 08/23/2024 Travel from Last 3 Months Social History Tobacco Use Types Packs/Day Years [...] Sign Reading Time Taken Comments Blood Pressure 110/74 07/28/2024 7:53 AM EDT Pulse 85 07/28/2024 7:53 AM EDT Temperature - - Respiratory Rate - - Oxygen Saturation - - Inhaled Oxygen Concentration - - Weight 77.6 kg (171 lb) 07/28/2024 7:53 AM EDT Height 157.5 cm (5' 2 ) 07/28/2024 7:53 AM EDT Body Mass Index 31.28 07/28/2024 7:53 AM EDT Plan of Treatment Upcoming Encounters Date Type Department Care Team (Late st Contact Info) Description 12/02/2024 9:00 AM EDT Office Visit [facility] [address] [place] [address] Dolores Pride MD [address] [place] [address] 12/14/2024 8:00 AM EDT Telemedicine Maternal- Medicine at [facility] [address] [place] [phone] Chad Gregg MD [address] [facility] [address] [place] [address] Health Maintenance Due Date Last Done Comments Diabetic Ophthalmology Exam 1992 Depression Screening 2004 Adult BMI Follow Up Plan 2010 Diabetic Foot Exam 2010 Pap Smear 2013 Influenza Vaccine 12/21/2024 02/28/2022 Adult BMI Screening 07/28/2025 07/28/2024 Tobacco Screening 11/19/2025 11/19/2024 DTaP,Tdap and Td Vaccines (3 - Td or Tdap) 03/26/2032 03/26/2022, 03/28/2021 Medical Devices Not on file Procedures Procedure Name Priority Date/Time Associated Diagnosis Comments US [facility] COMPREHENSIVE ANATOMIC SURVEY Routine 08/24/2024 9:37 AM EDT Type 1 diabetes mellitus in , first trimester from Last 3 Months Results * US [facility] COMPREHENSIVE ANATOMIC SURVEY (08/24/2024 9:37 AM EDT) Anatomical Region Laterality Modality OB-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 Ultrasound 08/24/2024 8:13 AM EDT Narrative 08/24/2024 10:55 AM EDT NAME: SERENA BEYER : 1990 SEX: F Accession Number: [id number] ORDERING PHYSICIAN: LAURENCE WOODARD REFERRING PHYSICIAN: GOLDEN YANG Coding ----- --------- Procedures [id number]: Ultrasound, uterus, real time with image documentation, and maternal evaluation plus detailed anatomic examination, transabdominal approach;single or first gestation 04324: Transvaginal Ultrasound (OB) 39587: Echocardiography, , cardiovascular system, real time with image documentation (2D), with or without M-mode recording Indication ----- --------- Screening for Anatomic Survey, Screening for cervical length, Screening for congenital cardiac abnormality, Pre-existing Type 1 diabetes in , History of prior with delivery, Previous , Obesity in History ----- --------- OB History 3. Para 2 [id number] Maternal Assessment ----- --------- Physical Exam Height 157 cm, 5 ft 2 in. Weight 79 kg, 175 lb. Initial weight 75 kg, 165 lb. BMI 32.01 kg/m . Initial BMI 30.18 kg/m . Weight gain 5 kg, 10 lb Method ----- --------- Transabdominal and transvaginal ultrasound examination. View: Suboptimal view: limited by position. Suboptimal view: limited by maternal body habitus ----- --------- Ferris . Number of fetuses: 1 Dating ----- --------- LMP on: 04/03/2024 GA by LMP 20 w + 3 d CHANDAN by LMP: 01/08/2025 Previous Ultrasound on: 05/27/2024 Type of prior assessment: GA GA at prior assessment date 6 w + 6 d GA by previous U/S 19 w + 4 d CHANDAN by previous Ultrasound: 01/14/2025 Ultrasound examination on: 08/24/2024 GA by U/S based upon: AC, BPD, Femur, HC GA by U/S 19 w + 5 d CHANDAN by U/S: 01/13/2025 Assigned: based on ultrasound (GA), selected on 08/24/2024 Assigned GA 19 w + 4 d Assigned CHANDAN: 01/14/2025 General Evaluation ----- --------- Cardiac activity Present. FHR 142 bpm. Presentation: breech Placenta: Placental site: posterior, away from cervical os Umbilical cord: Cord vessels: 3 vessel cord. Insertion site: normal insertion Amniotic fluid: Amount of AF: normal amount Biometry ----- --------- Standard BPD 44.6 mm 19w 3d 46% Hadlock OFD 59.8 mm 20w 5d 86% Sunny HC 167.1 mm 19w 3d 33% Hadlock Cerebellum tr 21.4 mm 20w 2d 86% Hill Nuchal fold 5.0 mm AC 154.9 mm 20w 5d 79% Hadlock Femur 30.5 mm 19w 3d 38% Hadlock Humerus 29.1 mm 19w 3d 49% Sunny HC / AC 1.08 6% Hadlock EFW 326 g 69% Hadlock EFW (lb) 0 lb EFW (oz) 12 oz EFW by: Hadlock ([id number]) Extended Tibia 25.9 mm 19w 2d 46% Sunny Economic Analyst 8.2 mm CM 5.3 mm 64% Nicolaides Inner IOD 14.2 mm Outer IOD 32.8 mm Head / Face / Neck Cephalic index 0.75 10% Nicolaides Nasal bone: not examined Extremities / Bony Struc FL / BPD 0.68 44% Hadlock FL / HC 0.18 35% Hadlock FL / AC 0.20 8% Hadlock Other Structures FHR 142 bpm Anatomy ----- --------- The following structures appear normal: Head/Neck: Cranium. Lateral ventricles. Choroid plexus. Midline falx. Cavum septi pellucidi. Cerebellum. Cisterna magna. Parenchyma. Vermis. Neck. Nuchal fold. Face: Lips. Maxilla. Mandible. Orbits. Heart/Thorax: RVOT view. Right lung. Left lung. Abdomen: Abdom. wall. Cord insertion. Stomach. Kidneys. Bladder. Small bowel. Large bowel. Genitals. Spine: Cervical spine. Thoracic spine. Lumbar spine. Sacral spine. Extremities/Skeleton: Right upper arm. Right forearm. Right hand. Left upper arm. Left forearm. Right upper leg. Right lower leg. Left upper leg. Left lower leg. The following structures could not be adequately visualized: Heart / Thorax 4-chamber view. LVOT view. 3-vessel view. Diaphragm. The following structures could not be examined: Face Profile. Nose. Nasal bone. Heart / Thorax 4-qqiizv-xekonrn view. Great vessels. Abdomen Right renal artery. Left renal artery. Extremities / Left hand. Right foot. Left foot. Skeleton Head / Neck other: Cavum Vergae Echocardiogram ----- --------- Situs situs solitus (normal) Cardiac position normal Cardiac axis normal Cardiac size normal (approx. 1/3 of thoracic area) Cardiac rhythm regular (normal) 4-chamber view suboptimal LVOT view suboptimal RVOT view normal 3-vessel view suboptimal 8-wxqtvq-jxoonzn view not examined Aortic arch view suboptimal Ductal arch view normal Bicaval view normal Interventricular septum not examined Venous-atrial connections normal AV connections suboptimal VA connections normal Pulmonary veins normal Right atrium suboptimal Left atrium suboptimal Atrial septum not examined Foramen ovale not examined Right ventricle suboptimal Left ventricle suboptimal Ventricular septum not examined Cross-over gr. arteries not examined Main PA the main pulmonary artery can be seen bifurcating into the ductus arteriosus and the right pulmonary artery Pulmonary arteries normal Maternal Structures ----- --------- Uterus Visualized Cervix Visualized Approach - Transvaginal: Cervical length 4.55 cm Right Ovary Not visualized Left Ovary Not visualized Cul de Sac Visualized. No free fluid visualized Impression ----- --------- Single viable intrauterine consistent with 19w 4d with an CHANDAN of 01/14/2025. Transvaginal cervical length measures 4.55 cm. Cavum vergae is identified on today's exam, which is a normal variant. Recommendations ----- --------- The patient is scheduled for serial cervical lengths at 21 and 23 weeks. The patient is scheduled in four week(s) to complete anatomic survey and echocardiogram. Subsequent follow up or other follow up as clinically determined by primary OB provider unless otherwise specified by M. Results forwarded to ordering provider so they can follow up with the patient as necessary. Procedure Note Chad Gregg MD - 08/24/2024 NAME: SERENA BEYER : 1990 SEX: F Accession Number: [id number] ORDERING PHYSICIAN: LAURENCE WOODARD REFERRING PHYSICIAN: GOLDEN YANG Coding ----- --------- Procedures [id number]: Ultrasound, uterus, real time with imagedocumentation, and maternal evaluation plus detailed anatomic examination, transabdominalapproach;single or first gestation [id number]: Transvaginal Ultrasound (OB) 19011: Echocardiography, , cardiovascular system, real timewith image documentation (2D), with or without M-mode recording Indication ----- --------- Screening for Anatomic Survey, Screening for cervical length, Screeningfor congenital cardiac abnormality, Pre-existing Type 1 diabetes in , History of prior with delivery,Previous , Obesity in History ----- --------- OB History 3. Para 2 [id number] Maternal Assessment ----- --------- Physical Exam Height 157 cm, 5 ft 2 in. Weight 79 kg, 175 lb. Initialweight 75 kg, 165 lb. BMI 32.01 kg/m . Initial BMI 30.18 kg/m . Weight gain 5 kg, 10 lb Method ----- --------- Transabdominal and transvaginal ultrasound examination. View: Suboptimalview: limited by position. Suboptimal view: limited by maternal body habitus ----- --------- Ferris . Number of fetuses: 1 Dating ----- --------- LMP on: 04/03/2024 GA by LMP 20 w + 3 d CHANDAN by LMP: 01/08/2025 Previous Ultrasound on: 05/27/2024 Type of prior assessment: GA GA at prior assessment date 6 w + 6 d GA by previous U/S 19 w + 4 d CHANDAN by previous Ultrasound: 01/14/2025 Ultrasound examination on: 08/24/2024 GA by U/S based upon: AC, BPD, Femur, HC GA by U/S 19 w + 5 d CHANDAN by U/S: 01/13/2025 Assigned: based on ultrasound (GA), selected on 08/24/2024 Assigned GA 19 w + 4 d Assigned CHANDAN: 01/14/2025 General Evaluation ----- --------- Cardiac activity Present. FHR 142 bpm. Presentation: breech Placenta: Placental site: posterior, away from cervical os Umbilical cord: Cord vessels: 3 vessel cord. Insertion site: normalinsertion Amniotic fluid: Amount of AF: normal amount Biometry ----- --------- Standard BPD 44.6 mm 19w 3d 46% Hadlock OFD 59.8 mm 20w 5d 86% Sunny HC 167.1 mm 19w 3d 33% Hadlock Cerebellum tr 21.4 mm 20w 2d 86% Hill Nuchal fold 5.0 mm AC 154.9 mm 20w 5d 79% Hadlock Femur 30.5 mm 19w 3d 38% Hadlock Humerus 29.1 mm 19w 3d 49% Sunny HC / AC 1.08 6% Hadlock EFW 326 g 69% Hadlock EFW (lb) 0 lb EFW (oz) 12 oz EFW by: Hadlock ([id number]) Extended Tibia 25.9 mm 19w 2d 46% Sunny Economic Analyst 8.2 mm CM 5.3 mm 64% Nicolaides Inner IOD 14.2 mm Outer IOD 32.8 mm Head / Face / Neck Cephalic index 0.75 10% Nicolaides Nasal bone: not examined Extremities / Bony Struc FL / BPD 0.68 44% Hadlock FL / HC 0.18 35% Hadlock FL / AC 0.20 8% Hadlock Other Structures FHR 142 bpm Anatomy ----- --------- The following structures appear normal: Head/Neck: Cranium. Lateral ventricles. Choroid plexus. Midline falx.Cavum septi pellucidi. Cerebellum. Cisterna magna. Parenchyma. Vermis. Neck. Nuchal fold. Face: Lips. Maxilla. Mandible. Orbits. Heart/Thorax: RVOT view. Right lung. Left lung. Abdomen: Abdom. wall. Cord insertion. Stomach. Kidneys. Bladder. Smallbowel. Large bowel. Genitals. Spine: Cervical spine. Thoracic spine. Lumbar spine. Sacral spine. Extremities/Skeleton: Right upper arm. Right forearm. Right hand. Leftupper arm. Left forearm. Right upper leg. Right lower leg. Left upper leg. Left lower leg. The following structures could not be adequately visualized: Heart / Thorax 4-chamber view. LVOT view. 3-vessel view. Diaphragm. The following structures could not be examined: Face Profile. Nose. Nasal bone. Heart / Thorax 6-eepjab-ilxfjlr view. Great vessels. Abdomen Right renal artery. Left renal artery. Extremities / Left hand. Right foot. Left foot. Skeleton Head / Neck other: Cavum Vergae Echocardiogram ----- --------- Situs situs solitus (normal) Cardiac position normal Cardiac axis normal Cardiac size normal (approx. 1/3 of thoracic area) Cardiac rhythm regular (normal) 4-chamber view suboptimal LVOT view suboptimal RVOT view normal 3-vessel view suboptimal 0-duatxm-hbtpsil view not examined Aortic arch view suboptimal Ductal arch view normal Bicaval view normal Interventricular septum not examined Venous-atrial connections normal AV connections suboptimal VA connections normal Pulmonary veins normal Right atrium suboptimal Left atrium suboptimal Atrial septum not examined Foramen ovale not examined Right ventricle suboptimal Left ventricle suboptimal Ventricular septum not examined Cross-over gr. arteries not examined Main PA the main pulmonary artery can be seen bifurcatinginto the ductus arteriosus and the right pulmonary artery Pulmonary arteries normal Maternal Structures ----- --------- Uterus Visualized Cervix Visualized Approach - Transvaginal: Cervical length 4.55 cm Right Ovary Not visualized Left Ovary Not visualized Cul de Sac Visualized. No free fluid visualized Impression ----- --------- Single viable intrauterine consistent with 19w 4d with an CHANDAN of01/14/2025. Transvaginal cervical length measures 4.55 cm. Cavum vergae is identified on today's exam, which is a normal variant. Recommendations ----- --------- The patient is scheduled for serial cervical lengths at 21 and 23 weeks. The patient is scheduled in four week(s) to complete anatomic survey andfetal echocardiogram. Subsequent follow up or other follow up as clinically determined byprimary OB provider unless otherwise specified by [facility]. Results forwarded to ordering provider so they can follow up with thepatient as necessary. us Laurence Woodard APRN-HOME CARE ASSOCIATE [facility] US ORDERABLES Final Result from Last 3 Months Insurance [employer]
--- OUTSIDE RECORDS SUMMARY | 2024-11-23 19:56 | XMS_ITS | Encounter Summary ---
Author Organization [employer] tem Address [facility]-[id number] [address] [place] [address] Care Team Providers Care Hydrographic Engineer Name Role Phone Unavailable Primary Care Provider Unavailabl e Reason for Referral * Diagnostic Imaging (Routine) - Pending Review Specialty Diagnoses / Procedures Referred By Contsilverio t Referred To Contact Maternal and Medicine Diagnoses Type 1 diabetes mellitus in , first trimester Procedures [facility] with or without consult Laurence Lunsford APRN-CNP [address] [place] [id number] Phone: tel: fax: Maternal- Medicine at [address] [address] Phone: tel: fax: Referral ID Status Reason Start Date Expiration Date V isits Requested Visits Authorized [id number] Pending Review 06/18/2024 06/18/2025 1 1 Encounter Details Date Type Department Care Team (Late st Contact Info) Description 06/18/2024 Orders Only Maternal- Medicine at [place] [address] [place] [phone] Mahnaz Lopez, JOURNEYMAN LEVEL ACOUSTIC ANALYST Type 1 diabetes mellitus in , first trimester (Primary Dx) Social History Tobacco Use Types Packs/Day Years Used Date Smoking Tobacco: Never Smokeless Tobacco: Never Alcohol Use Standard Drinks/Week Comments Not Currently 0 (1 standard drink = 0.6 oz pur e alcohol) Hunger Screening Answer Date Recorded Within the past 12 months we worried whether our food would run out before we got money to buy more. Never True 06/17/2024 Within the past 12 months th e food we bought just didn't last and we didn't have money to get more. Never True 06/17/2024 Estimated Date of Delivery Comme nts [...] Description 12/02/2024 9:00 AM EDT Office Visit [facility] [address] [place] [address] Dolores Pride MD [address] [place] [address] 12/14/2024 8:00 AM EDT Telemedicine Maternal- Medicine at [facility] [address] [place] [address] Chad Gregg MD [address] [facility], [address]LO[address] [place], [place] [phone] documented as of this encounter Results * [facility] COMPREHENSIVE ANATOMIC SURVEY (08/24/2024 9:37 AM EDT) Anatomical Region Laterality Modality OB-WET COT[facility] FEEDER Ultrasound 08/24/2024 8:13 AM EDT Narrative 08/24/2024 10:55 AM EDT NAME: SERENA BEYER : 1990 SEX: F Accession Number: [id number] ORDERING PHYSICIAN: LAURENCE LUNSFORD REFERRING PHYSICIAN: GOLDEN YANG Coding ----- --------- Procedures 54025: Ultrasound, uterus, real time with image documentation, and maternal evaluation plus detailed anatomic examination, transabdominal approach;single or first gestation 53360: Transvaginal Ultrasound (OB) 95219: Echocardiography, , cardiovascular system, real time with image documentation (2D), with or without M-mode recording Indication ----- --------- Screening for Anatomic Survey, Screening for cervical length, Screening for congenital cardiac abnormality, Pre-existing Type 1 diabetes in , History of prior with delivery, Previous , Obesity in History ----- --------- OB History 3. Para 2 [id number] Maternal Assessment ----- --------- Physical Exam Height [...] EFW (oz) 12 oz EFW by: Hadlock ([id number]) Extended Tibia 25.9 mm 19w 2d 46% Sunny Rubbish Collection Supervisor 8.2 mm CM 5.3 mm 64% Nicolaides [...] Profile. Nose. Nasal bone. Heart / Thorax 6-wcaeuf-footgon view. Great vessels. Abdomen Right renal artery. Left renal artery. Extremities / Left hand. Right foot. Left foot. Skeleton Head / Neck other: Cavum Vergae Echocardiogram ----- --------- Situs situs solitus (normal) Cardiac position normal Cardiac axis normal Cardiac size normal (approx. 1/3 of thoracic area) Cardiac rhythm regular (normal) 4-chamber view suboptimal LVOT view suboptimal RVOT view normal 3-vessel view suboptimal 6-qlusuq-ogkxmrd view not examined Aortic arch view suboptimal [...] intrauterine consistent with 19w 4d with an CHADNAN of 01/14/2025. Transvaginal cervical length measures 4.55 [...] primary OB provider unless otherwise specified by MFM. Results forwarded to ordering provider so they can follow up with the patient as necessary. Procedure Note Chad Gregg MD - 08/24/2024 NAME: SERENA BEYER : 1990 SEX: F Accession Number: [id number] ORDERING PHYSICIAN: LAURENCE LUNSFORD REFERRING PHYSICIAN: GOLDEN YANG Coding ----- --------- Procedures 09694: Ultrasound, uterus, real time with imagedocumentation, and maternal evaluation plus detailed anatomic examination, transabdominalapproach;single or first gestation 33085: Transvaginal Ultrasound (OB) 32999: Echocardiography, , cardiovascular system, real timewith image documentation (2D), with or without M-mode recording Indication ----- --------- Screening for Anatomic Survey, Screening for cervical length, Screeningfor congenital cardiac abnormality, Pre-existing Type 1 diabetes in , History of prior with delivery,Previous , Obesity in History ----- --------- OB History 3. Para 2 [id number] Maternal Assessment ----- --------- Physical Exam Height [...] EFW (oz) 12 oz EFW by: Hadlock ([id number]) Extended Tibia 25.9 mm 19w 2d 46% Sunny Rubbish Collection Supervisor 8.2 mm CM 5.3 mm 64% Nicolaides [...] Profile. Nose. Nasal bone. Heart / Thorax 9-yllqmr-xkipzrw view. Great vessels. Abdomen Right renal artery. Left renal artery. Extremities / Left hand. Right foot. Left foot. Skeleton Head / Neck other: Cavum Vergae Echocardiogram ----- --------- Situs situs solitus (normal) Cardiac position normal Cardiac axis normal Cardiac size normal (approx. 1/3 of thoracic area) Cardiac rhythm regular (normal) 4-chamber view suboptimal LVOT view suboptimal RVOT view normal 3-vessel view suboptimal 5-lctbjv-jlqapgv view not examined Aortic arch view suboptimal [...] byprimary OB provider unless otherwise specified by M. Results forwarded to ordering provider so they can follow up with thepatient as necessary. Laurence Lunsford APRN-[facility] US ORDERABLES Final Result documented in this encounter Visit Diagnoses Diagnosis Type 1 diabetes mellitus in , first trimester- Primary Type 1 diabetes mellitus in , first trimester documented in this encounter
--- OUTSIDE RECORDS SUMMARY | 2024-11-23 19:56 | XMS_ITS | Encounter Summary ---
Author Organization [employer] tem Address [facility]-[id number] [address] [place] [address] Care Team Providers Care Applied Marine Physics Professor Name Role Phone Unavailable Primary Care Provider Unavailabl e Encounter Details Date Type Department Care Team (Late Contact Info) Description 11/23/2024 Orders Only [facility] [address] [facility] [address] [place] [address] Dolores Pride MD [address] [facility] [address] [place] [address] Social History Tobacco Use Types Packs/Day Years [...] Description 12/02/2024 9:00 AM EDT Office Visit [facility] [address] [facility] [address] [place] [address] Dolores Pride MD [address] [facility] [address] [place] [address] 12/14/2024 8:00 AM EDT Telemedicine Maternal- Medicine at [facility] [address] [place] [address] Chad Gregg MD [address], [address] [place] [address] documented as of this encounter Visit Diagnoses Not on filedocumented in this encounter
--- OUTSIDE RECORDS SUMMARY | 2024-11-23 19:56 | XMS_ITS | Encounter Summary ---
Author Organization [facility] Address [address] [place] [address] Care Team Providers Care Physician Coder Name Role Phone Unavailable Primary Care Provider Unavailabl e Encounter Details Date Type Department Care Team (Late Contact Info) Description 07/14/2024 Abstract FLORINDA MOLINA [address] [place] [address] Floridalma Thomas CN [address] [place] [address] Social History Tobacco Use Types Packs/Day Years [...] Description 11/26/2024 8:30 AM EDT Routine FLORINDA MOLINA [address] [place] [address] Gabriel Mendez DO [address] [place] [address] 11/30/2024 5:00 PM EDT Routine FLORINDA MOLINA [address] [place] [address] Floridalma Thomas, CNM [address] [facility] [place] [address] 12/07/2024 5:30 PM EDT Routine [facility] [place] [facility] [address] [facility] [place] [address] Floridalma Thomas, CNM [address] [facility] [place] [address] 12/14/2024 5:00 PM EDT Routine [facility] [place] [facility] [address] [facility] [place] [address] Floridalma Thomas, CN [address] [facility] [place] [address] documented as of this encounter Goals Goal Patient Goal Type Associated Problems Recent Progress Patient-Stated? Author Reminders Care Plan OB Reminders No Open Scheduling, Background documented as of this encounter Visit Diagnoses Not on filedocumented in this encounter Additional Health Concerns Active Problems Noted Date Diagnosed Date OB Reminders 07/14/2024 documented as of this encounter
--- OUTSIDE RECORDS SUMMARY | 2024-11-23 19:56 | XMS_ITS | Encounter Summary ---
Author Organization [facility] Address [address] [facility], [address] [place] [address] Care Team Providers Care Director Of Instructional Technology Name Role Phone Unavailable Primary Care Provider Unavailabl e Encounter Details Date Type Department Care Team (Late st Contact Info) Description 02/03/2020 Orders Only [address] [place] [address] Uncontrolled type 1 diabetes mellitus with hyperglycemia (HCC); Hypercholesterolemia Social History Tobacco Use Types Packs/Day Years Used Date Smoking Tobacco: Never Smokeless Tobacco: Never Alcohol Use Standard Drinks/Week Comments Yes 0 (1 standard drink = 0.6 oz pur e alcohol) occ PHQ-2 Answer Date Recorded PHQ-2 Score 0 07/23/2018 Comments No Sex and Gender Information Value Date Recorded Sex Assigned at Not on file Legal Sex Female 9:51 AM EDT Gender Identity Not on file Sexual Orientation Not on file documented as of this encounter Plan of Treatment Not on file documented as of this encounter Procedures Procedure Name Priority Date/Time Associated Diagnosis Comments ALBUMIN/CREATININE RATIO, URINE Routine 02/03/2020 8:48 AM EDT Uncontrolled type 1 diabetes mellitus with hyperglycemia (HCC) Hypercholesterolemia HEMOGLOBIN A1C Routine 02/03/2020 8:38 AM EDT Uncontrolled type 1 diabetes mellitus with hyperglycemia (HCC) LIPID PANEL Routine 02/03/2020 8:38 AM EDT Uncontrolled type 1 diabetes mellitus with hyperglycemia (HCC) COMPREHENSIVE METABOLIC PANEL Routine 02/03/2020 8:38 AM EDT Uncontrolled type 1 diabetes mellitus with hyperglycemia (HCC) documented in this encounter Results * (ABNORMAL) Microalbumin / Creatinine Urine Ratio (02/03/2020 8:48 AM EDT) Microalb, Ur <1.20 <2.0 mg/dL 02/03/2020 1:00 PM EDT [facility] Creatinine, Ur 259.3(H) 28.0 - 259.0 mg/dL 02/03/2020 1:00 PM EDT [facility] Albumin/Creatinin e Ratio see below 0.0 - 30.0 mg/g 02/03/2020 1:00 PM EDT [facility] Comment: Ratio cannot be calculated since microalbumin level is below the lower detection limit. URINE SPECIMEN / Unknown 02/03/2020 8:48 AM EDT 02/03/2020 11:18 AM EDT Narrative [facility] - 02/03/2020 1:13 PM EDT Performed at: [facility] [address] [place] [address] us Stefany Tariq MD URINE ORDERABLES Final Result [facility] [address] [place] [address], [facility] [phone] * (ABNORMAL) Comprehensive Metabolic Panel (02/03/2020 8:38 AM EDT) Sodium 142 136 - 145 mmol/L 02/03/2020 12:40 PM EDT [facility] Potassium 4.1 3.5 - 5.1 mmol/L 02/03/2020 12:40 PM EDT [facility] Chloride 106 99 - 110 mmol/L 02/03/2020 12:40 PM [facility] CO2 23 21 - 32 mmol/L 02/03/2020 12:40 PM [facility] Anion Gap 13 3 - 16 02/03/2020 12:40 PM [facility] Glucose 62(L) 70 - 99 mg/dL 02/03/2020 12:40 PM [facility] BUN 8 7 - 20 mg/dL 02/03/2020 12:40 PM [facility] Creatinine 0.6 0.6 - 1.1 mg/dL 02/03/2020 12:40 PM [facility] GFR Non- >60 >60 02/03/2020 12:40 PM [facility] Comment: >60 mL/min/1.73m2 EGFR, calc. for ages 18 and older using the MDRD formula (not corrected for weight), is valid for stable renal function. GFR >60 >60 02/03/2020 12:40 PM [facility] Comment: Chronic Kidney Disease: less than 60 ml/min/1.73 sq.m. Kidney Failure: less than 15 ml/min/1.73 sq.m. Results valid for patients 18 years and older. Calcium 9.2 8.3 - 10.6 mg/dL 02/03/2020 12:40 PM [facility] Total Protein 6.6 6.4 - 8.2 g/dL 02/03/2020 12:40 PM [facility] Albumin 4.1 3.4 - 5.0 g/dL 02/03/2020 12:40 PM [facility] Albumin/Globulin Ratio 1.6 1.1 - 2.2 02/03/2020 12:40 PM [facility] Total Bilirubin 0.3 0.0 - 1.0 mg/dL 02/03/2020 12:40 PM [facility] Alkaline Phosphatase 65 40 - 129 U/L 02/03/2020 12:40 PM [facility] ALT 15 10 - 40 U/L 02/03/2020 12:40 PM [facility] AST 24 15 - 37 U/L 02/03/2020 12:40 PM EDT [facility] Globulin 2.5 g/dL 02/03/2020 12:40 PM EDT [facility] BLOOD SPECIMEN / Unknown 02/03/2020 8:38 AM EDT 02/03/2020 11:17 AM EDT [facility] - 02/03/2020 1:09 PM EDT Performed at: [facility] [address] [place] [address] us Stefany Tariq MD CHEMISTRY ORDERABLES Final Resu lt [facility] [address] [place] [address] * Hemoglobin A1C (02/03/2020 8:38 AM EDT) Hemoglobin A1C 7.9 See comment % 02/03/2020 1:21 PM EDT [facility] Comment: Comment: Diagnosis of Diabetes: > or = 6.5% Increased risk of diabetes (Prediabetes): 5.7-6.4% Glycemic Control: Non Adults: <7.0% : <6.0% Estimated Avg Glucose 180.0 mg/dL 02/03/2020 1:21 PM EDT [facility] BLOOD SPECIMEN / Unknown 02/03/2020 8:38 AM EDT 02/03/2020 11:17 AM EDT [facility] - 02/03/2020 1:21 PM EDT Performed at: [facility] [address] [place] [address] us Stefany Tariq MD CHEMISTRY ORDERABLES Final Resu lt Performing Organization Address City/[facility]/ZIP Co de Phone Number [facility] [address] [place] [address] * (ABNORMAL) Lipid Panel (02/03/2020 8:38 AM EDT) Cholesterol, Total 213(H) 0 - 199 mg/dL 02/03/2020 12:40 PM EDT [facility] Triglycerides 73 0 - 150 mg/dL 02/03/20 20 12:40 PM EDT [facility] HDL 97(H) 40 - 60 mg/dL 02/03/2020 12:40 PM EDT [facility] LDL Calculated 101(H) <100 mg/dL 02/03/2020 12:40 PM EDT [facility] VLDL Cholesterol Calculated 15 Not Established mg/dL 02/03/2020 12:40 PM EDT [facility] BLOOD SPECIMEN / Unknown 02/03/2020 8:38 AM EDT 02/03/2020 11:17 AM EDT Narrative [facility] - 02/03/2020 1:09 PM EDT Performed at: [facility] [address] [facility], [place] [address] us Stefany Tariq MD CHEMISTRY ORDERABLES Final Resu lt [facility] [address] [place] [address], [facility] [phone] documented in this encounter Visit Diagnoses Diagnosis Uncontrolled type 1 diabetes mellitus with hyperglycemia (HCC) Hypercholesterolemia Pure hypercholesterolemia documented in this encounter
--- OUTSIDE RECORDS SUMMARY | 2024-11-23 19:56 | XMS_ITS | Encounter Summary ---
Author Organization [facility] Address [address] [place] [address] Care Team Providers Care Industrial Ecology Technician Name Role Phone Unavailable Primary Care Provider Unavailabl e Encounter Details Date Type Department Care Team (Late st Contact Info) Description 06/24/2024 Telephone [facility] [facility] [address] [place] [phone] Floridalma Thomas CN [address] [place], [place] [phone] Social History Tobacco Use Types Packs/Day Years [...] encounter Miscellaneous Notes * Telephone Encounter - Ignacia Lai MA - 06/29/2024 4:17 PM EDT Spoke with pt * Telephone Encounter - Lawanda Argueta - 06/24/2024 1:04 PM EST I'm thinking this goes to you guys? Hi, this is Alyse Freeze. I was just giving you a call back. You would called to let me know that you made an appointment with Dr. Olivo. I was calling to see like does it have to be in 2 weeks or I was just trying to find a time to see him that like was not in the middle of my workday. So, I did not have to take p t o to go to the appointment and then when I called his office they, like, didnot have anything. So, I was just calling to see if it had to be in 2 weeks or if like, it could befurther out if I could get a different time. If you could just give me a call back at [phone].Thank you. documented in this encounter Plan of Treatment Upcoming Encounters Date Type Department Care Team (Late st Contact Info) Description 11/26/2024 8:30 AM EDT Routine [facility] [place] [facility] [address] [facility] [address] [place] [phone] Gabriel Mendez DO [address] [facility] [place] [address] 11/30/2024 5:00 PM EDT Routine [facility] [place] [facility] [address] [place] [address] Floridalma Thomas CN [address] [place] [address] 12/07/2024 5:30 PM EDT Routine [facility] [facility] [address] [place] [address] Floridalma Thomas, CNM [address] [place] [address] 12/14/2024 5:00 PM EDT Routine [facility] [facility] [address] [place] [address] Floridalma Thomas, CNM [address] [place] [address] documented as of this encounter Visit Diagnoses Not on filedocumented in this encounter
--- OUTSIDE RECORDS SUMMARY | 2024-11-23 19:56 | XMS_ITS | Encounter Summary ---
Author Organization [facility] Address [address] [place] [address] [place] [address] Care Team Providers Care Security Operations Center Operator Name Role Phone Unavailable Primary Care Provider Unavailabl e Encounter Details Date Type Department Care Team (Late Contact Info) Description 11/17/2024 Results Follow-Up FLORINDA MOLINA [address] [place] [address] Floridalma Thomas, [place] [address] [place], [place] [phone] Social History Tobacco Use Types Packs/Day Years [...] 8:30 AM EDT Routine FLORINDA MOLINA [address] [place] [phone] Gabriel Mendez DO [address] [place] [address] 11/30/2024 5:00 PM EDT Routine FLORINDA NATARAJANGYIta [address] [place] [address] Floridalma Thomas, CNM [address] [place] [facility] [place] [address] 12/07/2024 5:30 PM EDT Routine [facility] [facility] [address] [facility] [place] [address] Floridalma Thomas, CNM [address] [place] [facility] [place] [address] 12/14/2024 5:00 PM EDT Routine [facility] [place] [facility] [address] [facility] [place] [address] Floridalma Thomas, CNM [address] [facility] [place] [address] documented as of this encounter Goals Goal Patient Goal Type Associated Problems Recent Progress Patient-Stated? Author Reminders Care Plan OB Reminders No Open Scheduling, Background documented as of this encounter Visit Diagnoses Not on filedocumented in this encounter Additional Health Concerns Active Problems Noted Date Diagnosed Date OB Reminders 07/14/2024 documented as of this encounter
--- OUTSIDE RECORDS SUMMARY | 2024-11-23 19:56 | XMS_ITS | Encounter Summary ---
Author Organization [facility] Address [facility]-[id number] [address] [place] [address] Care Team Providers Care Weld Fitter Name Role Phone Unavailable Primary Care Provider Unavailabl e Encounter Details Date Type Department Care Team (Latest Contact Info) Description 11/19/2024 Travel Social History Tobacco Use Types Packs/Day Years [...] 9:00 AM EDT Office Visit [facility] [address] [facility] [address] [place] [phone] Dolores Pride MD [address] [facility] [address] [place] [address] 12/14/2024 8:00 AM EDT Telemedicine Maternal- Medicine at [facility] [address] [place] [address] Chad Gregg MD [address], [address] [place] [address] documented as of this encounter Visit Diagnoses Not on filedocumented in this encounter
--- OUTSIDE RECORDS SUMMARY | 2024-11-23 19:56 | XMS_ITS | Encounter Summary ---
Author Organization [facility] Address [address] [place] [address] Care Team Providers Care Admissions Manager Rn Name Role Phone Unavailable Primary Care Provider Unavailabl e Encounter Details Date Type Department Care Team (Late Contact Info) Description 11/16/2024 Bamboo flowsheet [facility] [address] [place] [address] Floridalma Thomas, CN [address] [place], [place] [phone] Social History Tobacco Use Types Packs/Day Years [...] AM EDT Routine [facility] [place] [facility] [address] [facility] [place] [phone] Gabriel Mendez DO [address] [facility] [place] [address] 11/30/2024 5:00 PM EDT [facility] [address] [place] [address] Floridalma Thomas, CNM [address] [place] [address] 12/07/2024 5:30 PM EDT Routine [facility] [place] [facility] [address] [place] [address] Floridalma Thomas, CNM [address] [place] [address] 12/14/2024 5:00 PM EDT Routine [facility] [place] [facility] [address] [place] [address] Floridalma Thomas, CNM [address] [place] [address] documented as of this encounter Goals Goal Patient Goal Type Associated Problems Recent Progress Patient-Stated? Author Reminders Care Plan OB Reminders No Open Scheduling, Background documented as of this encounter Visit Diagnoses Not on filedocumented in this encounter Additional Health Concerns Active Problems Noted Date Diagnosed Date OB Reminders 07/14/2024 documented as of this encounter
--- OUTSIDE RECORDS SUMMARY | 2024-11-23 19:56 | XMS_ITS | Encounter Summary ---
Author Organization [facility] Address [id number] [address] [place] [address] Care Team Providers Care Scuba Instructor Name Role Phone Unavailable Primary Care Provider Unavailabl e Encounter Details Date Type Department Care Team (Late Contact Info) Description 08/17/2024 Orders Only Maternal- Medicine at [facility] [address] [place] [address] Chad Gregg MD [address] [facility] [address] [place] [address] Social History Tobacco Use Types Packs/Day Years [...] 9:00 AM EDT Office Visit [facility] [place] [facility] [address] [facility] [facility] [address] [place] [address] Dolores Pride MD [address] [facility] [address] [place] [address] 12/14/2024 8:00 AM EDT Telemedicine Maternal- Medicine at [facility] [address] [place] [address] Chad Gregg MD [address], [address] [place] [address] documented as of this encounter Visit Diagnoses Not on filedocumented in this encounter
--- OUTSIDE RECORDS SUMMARY | 2024-11-23 19:56 | XMS_ITS | Encounter Summary ---
Author Organization [facility] Address [address] [place] [address] Care Team Providers Care Licensed Practical Nurse Clinic Nurse Name Role Phone Unavailable Primary Care Provider Unavailabl e Encounter Details Date Type Department Care Team (Late Contact Info) Description 11/23/2024 Results Follow-Up FLORINDA MOLINA [address] [place] [address] Floridalma Thomas, [place] [address] [place], [place] [phone] Social History Tobacco Use Types Packs/Day Years [...] 8:30 AM EDT Routine FLORINDA MOLINA [address] [place] [phone] Gabriel Mendez DO [address] [facility] [place] [address] 11/30/2024 5:00 PM EDT Routine FLORINDA NATARAJANGYIta [address] [place] [address] Floridalma Thomas, CNM [address] [place] [facility] [place] [address] 12/07/2024 5:30 PM EDT Routine [facility] [address] [place] [address] Floridalma Thomas, CNM [address] [place] [address] 12/14/2024 5:00 PM EDT Routine [facility] [place] [facility] [address] [place] [address] Floridalma Thomas, CNM [address] [place] [address] documented as of this encounter Goals Goal Patient Goal Type Associated Problems Recent Progress Patient-Stated? Author Reminders Care Plan OB Reminders No Open Scheduling, Background documented as of this encounter Visit Diagnoses Not on filedocumented in this encounter Additional Health Concerns Active Problems Noted Date Diagnosed Date OB Reminders 07/14/2024 documented as of this encounter
--- OUTSIDE RECORDS SUMMARY | 2024-11-23 19:56 | XMS_ITS | Encounter Summary ---
Author Organization [facility] Address [address] [place] [address] Care Team Providers Care Hardware Assembler Name Role Phone Unavailable Primary Care Provider Unavailabl e Encounter Details Date Type Department Care Team (Late st Contact Info) Description 05/05/2024 Orders Only FLOR[facility] [address] [place] [address] Floridalma Thomas CNM [address] [place], [place] [phone] Amenorrhea Social History Tobacco Use Types Packs/Day Years Used Date Smoking Tobacco: Never Assessed Comments Unknown Sex and Gender Information Value Date Recorded Sex Assigned at Not on file Legal Sex Female 2:11 PM EST Gender Identity Not on file Sexual Orientation Not on file documented as of this encounter Plan of Treatment Upcoming Encounters Date Type Department Care Team (Late st Contact Info) Description 11/26/2024 8:30 AM EDT Routine FLORINDA MOLINA [address] [facility] [address] [phone] Gabriel Mendez DO [address] [facility] [place] [address] 11/30/2024 5:00 PM EDT Routine FLORINDA NATARAJANGYN [address] [place] [address] Floridalma Thomas CNM [address] [place], [place] [address] 12/07/2024 5:30 PM EDT Routine [facility] [place] [facility] [address] [place] [address] Floridalma Thomas, [facility] [address] [place], [place] [phone] 12/14/2024 5:00 PM EDT Routine [facility] [place] [address] [place] [address] Floridalma Thomas, [facility] [address] [place], [place] [phone] Scheduled Orders Name Type Priority Associated Diagnoses Orde r Schedule OB transvaginal Imaging Routine Amenorrhea Expected: 05/05/2024, Expires: 05/05/2025 documented as of this encounter Visit Diagnoses Diagnosis Amenorrhea Absence of menstruation documented in this encounter
--- OUTSIDE RECORDS SUMMARY | 2024-11-23 19:56 | XMS_ITS | Encounter Summary ---
Author Organization [facility] Address [address] [place] [address] Care Team Providers Care Fructose Loader Name Role Phone Unavailable Primary Care Provider Unavailabl e Encounter Details Date Type Department Care Team (Late st Contact Info) Description 11/20/2024 Clinisync Result Encounter NOMS External Department Unsolicited Golden Thomas CNM [address] [place] [address] Social History Tobacco Use Types [...] 11/26/2024 8:30 AM EDT Routine [facility] [place] OBGYIta [address] [place] [phone] Gabriel Mendez DO [address] [facility] [place] [address] 11/30/2024 5:00 PM EDT Routine [facility] [address] [place] [address] Golden Thomas CNM [address] [place] [address] 12/07/2024 5:30 PM EDT Routine [facility] [address] [facility] [place] [address] Golden Thomas, CNM [address] [place] [address] 12/14/2024 5:00 PM EDT Routine [facility] [address] [facility] [place] [address] Golden Thomas, CNM [address] [place] [address] documented as of this encounter Goals Goal Patient Goal Type Associated Problems Recent Progress Patient-Stated? Author Reminders Care Plan OB Reminders No Open Scheduling, Background documented as of this encounter Procedures Procedure Name Priority Date/Time Associated Diagnosis Comments US OB BPP W NON-STRESS 11/20/2024 10:16 AM EDT documented in this encounter Results * US OB BPP W NON-STRESS (11/20/2024 10:16 AM EDT) Anatomical Region Laterality Modality Other 11/20/2024 10:1 6 AM EDT Narrative 11/20/2024 10:19 [place] [address] Ultrasound Report Signed Patient: ALYSE MUNGUIA MR#: [id number] : 1990 Acct:[id number] Age/Sex: 34 / F ADM Date: 11/19/24 Loc: US Attending Dr: GOLDEN THOMAS APRN, CNM Ordering Physician: GOLDEN THOMAS APRN, CNM Date of Service: 11/19/24 Procedure(s): US OB BPP w non-stress Accession Number(s): [id number] cc: GOLDEN THOMAS APRN, CNM; Physician,Non-Staff M.D. The [address] [address] Patient Name: ALYSE MUNGUIA MRN: [facility]:[id number] date: 1990 Sex: F Assigned Patient Location: [facility] Current Patient Location: Accession/Order Number: [id number] Exam Date: 11/20/2024 10:06 Report Date: 11/20/2024 10:16 At the request of: GOLDEN THOMAS APRN, CNM Procedure: US OB BPP w non-stress Biophysical profile. Reason for exam: Type 1 diabetes COMPARISON: None TECHNIQUE: Transabdominal imaging of the gravid uterus was obtained. FINDINGS: The bilingual inside sales representative reports a BPP of 8 out of 8. MASON is normal at 13.6 cm. heart rate 139 bpm. US/US OB BPP w non-stress IMPRESSION: BPP 8 out of 8. Impression dictated by: Luc Echeverria Jr., D.O. 11/20/2024 10:16 AM Dictation Location: [place] [address] Electronically authenticated by: [id number] Y Date: 11/20/2024 10:16 Dictated By: Luc Echeverria M.D. Signed By: 11/20/24 1019 DD/ 1016 TD/TT: Incident Coordinator: Procedure Note Radiology, Radiologist, - 11/20/2024 [facility] [place] [id number] Ultrasound Report Signed Patient: MOLLY MUNGUIA#: [id number] : 1990Acct:[id number] Age/Sex: 34 / FADM Date: 11/19/24 Loc: US Attending Dr: GOLDEN THOMAS APRN, CNM Ordering Physician: GOLDEN THOMAS APRN, CNM Date of Service: 11/19/24 Procedure(s): US OB BPP w non-stress Accession Number(s): [id number] cc: GOLDEN THOMAS APRN, CNM; Physician,Non-Staff MGraciela [place] [address] Patient Name: ALYSE MUNGUIA MRN: [facility]:[id number] date: 1990 Sex: F Assigned Patient Location: [facility] Current Patient Location: Accession/Order Number: [id number] Exam Date: 11/20/2024 10:06 Report Date: 11/20/2024 10:16 At the request of: GOLDEN THOMAS APRN, CNM Procedure: US OB BPP w non-stress Biophysical profile. Reason for exam: Type 1 diabetes COMPARISON: None TECHNIQUE: Transabdominal imaging of the gravid uterus was obtained. FINDINGS: The bilingual inside sales representative reports a BPP of 8 out of 8. MASON is normal at13.6 cm. heart rate 139 bpm. US/US OB BPP w non-stress IMPRESSION: BPP 8 out of 8. Impression dictated by: Luc Echeverria Jr., D.O. 11/20/2024 10:16 AM Dictation Location: [place] [address] Electronically authenticated by: [id number] Y Date: 0:16 Dictated By: Luc Echeverria M.D. Signed By:11/20/24 1019 DD/ 1016 TD/TT: Incident Coordinator: us Golden Thomas CNM [facility] Final Resu lt documented in this encounter Visit Diagnoses Not on filedocumented in this encounter Additional Health Concerns Active Problems Noted Date Diagnosed Date OB Reminders 07/14/2024 documented as of this encounter
--- OUTSIDE RECORDS SUMMARY | 2024-11-23 19:56 | XMS_ITS | Encounter Summary ---
Author Organization [facility] Address [address] [place] [address] Care Team Providers Care Avionics Supervisor Name Role Phone Unavailable Primary Care Provider Unavailabl e Encounter Details Date Type Department Care Team (Latest Contact Info) Description 11/09/2024 Travel Social History Tobacco Use Types Packs/Day [...] Description 11/26/2024 8:30 AM EDT Routine NOMOd[facility] MOLINA [address] [place] [phone] Gabriel Mendez DO [address] [facility] [place] [address] 11/30/2024 5:00 PM EDT Routine [facility] [place] [facility] [address] [place] [address] Floridalma Thomas CNM [address] [place], [place] [address] 12/07/2024 5:30 PM EDT Routine [facility] [place] [address] [place] [address] Floridalma Thomas CNM [address] [place], [place] [address] 12/14/2024 5:00 PM EDT Routine [facility] [place] [facility] [address] [place] [address] Floridalma Thomas CNM [address] [place] [address] documented as of this encounter Goals Goal Patient Goal Type Associated Problems Recent Progress Patient-Stated? Author Reminders Care Plan OB Reminders No Open Scheduling, Background documented as of this encounter Visit Diagnoses Not on filedocumented in this encounter Additional Health Concerns Active Problems Noted Date Diagnosed Date OB Reminders 07/14/2024 documented as of this encounter
--- OUTSIDE RECORDS SUMMARY | 2024-11-23 19:56 | XMS_ITS | Encounter Summary ---
Author Organization [facility] Address [facility]-[id number] [address] [place] [address] Care Team Providers Care Rn Corrections Name Role Phone Unavailable Primary Care Provider Unavailabl e Encounter Details Date Type Department Care Team (Late st Contact Info) Description 11/09/2024 Telephone [facility] [address] [place] [address] Keeley Robles CMA Social History Tobacco Use Types Packs/Day Years [...] encounter Miscellaneous Notes * Telephone Encounter - Keeley Robles CMA - 11/09/2024 9:16 AM EDT Lvm for patient to return call to reschedule appointment from 11/09 due to patient having an ob appointment at same time. documented in this encounter Plan of Treatment Upcoming Encounters Date Type Department Care Team (Late st Contact Info) Description 12/02/2024 9:00 AM EDT Office Visit [facility] [address] [place] [address] Dolores Pride MD [address] [place] [address] 12/14/2024 8:00 AM EDT Telemedicine Maternal- Medicine at [facility] [address] [place] [address] Chad Gregg MD [address] [facility] [address] [place], [place] [phone] documented as of this encounter Visit Diagnoses Not on filedocumented in this encounter
--- OUTSIDE RECORDS SUMMARY | 2024-11-23 19:56 | XMS_ITS | Encounter Summary ---
Author Organization [employer] [facility] tem Address [id number] [address] [place] [address] Care Team Providers Care Endocrinology Specialist Name Role Phone Unavailable Primary Care Provider Unavailabl e Encounter Details Date Type Department Care Team (Late Contact Info) Description 11/09/2024 Orders Only [facility] [address] [place] [address] Dloores Pride MD [address] [place] [address] Social History Tobacco Use Types Packs/Day Years [...] 9:00 AM EDT Office Visit [facility] [address] [place] [address] Dolores Pride MD [address] [place] [address] 12/14/2024 8:00 AM EDT Telemedicine Maternal- Medicine at [facility] [address] [place] [address] Chad Gregg MD [address], [address] [place] [address] documented as of this encounter Visit Diagnoses Not on filedocumented in this encounter
--- OUTSIDE RECORDS SUMMARY | 2024-11-23 19:56 | XMS_ITS | Encounter Summary ---
Author Organization [facility] tem Address [facility]-[id number] [address] [place] [address] Care Team Providers Care Expedition Supervisor Name Role Phone Unavailable Primary Care Provider Unavailabl e Encounter Details Date Type Department Care Team (Late Contact Info) Description 06/05/2024 Orders Only Maternal- Medicine at [facility] [address] [place] [phone] Ref Prov, [place] [address] Social History Tobacco Use Types Packs/Day Years [...] Department Care Team (Late Contact Info) Description 12/02/2024 9:00 AM EDT Office Visit [facility] [address] [place] [address] Dolores Pride MD [address] [place] [address] 12/14/2024 8:00 AM EDT Telemedicine Maternal- Medicine at [facility] [address] [place] [phone] Chad Gregg MD [address], [address] [place] [address] documented as of this encounter Visit Diagnoses Not on filedocumented in this encounter
--- OUTSIDE RECORDS SUMMARY | 2024-11-23 19:57 | XMS_ITS | Encounter Summary ---
Author Organization [facility] Address [address], [address] [place] [address] Care Team Providers Care Theater Teacher Name Role Phone Unavailable Primary Care Provider Unavailabl e Reason for Visit * Reason Comments Medication Refill Encounter Details Date Type Department Care Team (Late st Contact Info) Description 05/16/2021 Refill [facility] Endocrine [address] [place], [place] [phone] Stefany Tariq MD [address] [place] [address] Medication Refill Social History Tobacco Use Types Packs/Day Years Used Date Smoking Tobacco: Never Smokeless Tobacco: Never Alcohol Use Standard Drinks/Week Comments Yes 0 (1 standard drink = 0.6 oz pur e alcohol) occ PHQ-2 Answer Date Recorded PHQ-2 Score 0 07/23/2018 Comments Yes Sex and Gender Information Value Date Recorded Sex Assigned at Not on file Legal Sex Female 9:51 AM EDT Gender Identity Not on file Sexual Orientation Not on file documented as of this encounter Plan of Treatment Not on file documented as of this encounter Visit Diagnoses Diagnosis Uncontrolled type 1 diabetes mellitus with hyperglycemia (HCC) documented in this encounter
--- OUTSIDE RECORDS SUMMARY | 2024-11-23 19:57 | XMS_ITS | Encounter Summary ---
Author Organization [facility] Address [address], [address] [place] [address] Care Team Providers Care Supervisor Water Treatment Plant Name Role Phone Unavailable Primary Care Provider Unavailabl e Reason for Referral * Imaging (Routine) - Closed Specialty Diagnoses / Procedures Referred By Sejal lugo Referred To Contact Radiology Diagnoses Brain cyst Procedures MRI BRAIN W WO CONTRAST Anthony Sherman MD [address] [facility] [address] [place] [address] Phone: tel: fax: Referral ID Status Reason Start Date Expiration Date Visits Re quested Visits Authorized [id number] Closed 08/06/2023 09/20/2023 1 1 Encounter Details Date Type Department Care Team (Latest Contact Info) Description 08/08/2023 Transcribe Orders [facility] [address] [place], [place] [phone] Anthony Sherman MD [address] [place] [address] Brain cyst (Primary Dx) Social History Tobacco Use Types [...] as of this encounter Plan of Treatment Scheduled Orders Name Type Priority Associated Diagnoses Orde r Schedule MRI BRAIN W WO CONTRAST Imaging Routine Brain cyst Expected: 08/08/2023, Expires: 08/07/2024 documented as of this encounter Visit Diagnoses Diagnosis Brain cyst- Primary Cerebral cysts documented in this encounter
[2024-11-23 19:59] VITALS: BP 135/71; PULSE 90
== END 2024-11-23 20:25 | disposition home or self-care (01) ==
LOC: FBCO 19:54 → FBC 19:56
PROVIDERS: Visit Provider Midwife
DX: O24.313 Unspecified pre-existing diabetes mellitus in pregnancy, third trimester (principal)
CPT/HCPCS: 59025

== ENCOUNTER 2024-11-26 06:59 | Outpatient (OUT) | payer OTHER, SELFPAY ==
--- NOTE | 2024-11-26 07:01 | US_ITS ---
The [place] [id number] Patient Name: PEPITO LYONS MRN: [facility]:[id number] date: 1990 Sex: F Assigned Patient Location: US Current Patient Location: Accession/Order Number: [id number] Exam Date: 11/26/2024 13:22 Report Date: 11/26/2024 13:23 At the request of: GOLDEN YANG APRN, CNM Procedure: US OB BPP w non-stress Biophysical profile. Reason for exam: Type 1 diabetes COMPARISON: 11/19/2024 TECHNIQUE: Transabdominal imaging of the gravid uterus was obtained. FINDINGS: The strong nitric operator reports a BPP of 8 out of 8. MASON is normal at 12.6 cm. heart rate 126 bpm. US/US OB BPP w non-stress IMPRESSION: BPP 8 out of 8. Impression dictated by: Luc Echeverria Jr., D.O. 11/26/2024 1:23 PM Dictation Location: [place] [address] Electronically authenticated by: [id number] Y Date: 11/26/2024 13:23
--- NOTE | 2024-11-26 07:02 | US_ITS ---
[address] [address] Patient Name: PEPITO LYONS MRN: [id number] date: 1990 Sex: F Assigned Patient Location: [facility] Current Patient Location: Accession/Order Number: [id number] Exam Date: 11/26/2024 13:23 Report Date: 11/26/2024 13:25 At the request of: GOLDEN YANG APRN, CNM Procedure: US OB growth OB ultrasound. Reason for exam:Type 1 diabetes Comparison:None Technique: Transabdominal imaging of the gravid uterus was obtained. Findings: Single live intrauterine 34 weeks 6 days by anatomic measurements. Appropriate growth by dating. Estimated weight is 2473 g which is approximately 66 percentile. heart rate 126 bpm. MASON is normal at 12.58 cm. position cephalic at time of scanning. US/US OB growth Impression: Appropriate growth. Impression dictated by: Luc Echeverria Jr., D.O. 11/26/2024 1:25 PM Dictation Location: [place] [employer] Electronically authenticated by: [id number] Y Date: 11/26/2024 13:25
[2024-11-26 07:48] VITALS: BP 117/68; PULSE 76
== END 2024-11-26 08:28 | disposition home or self-care (01) ==
LOC: US 07:00 → FBC 07:00
PROVIDERS: Visit Provider Midwife
DX: O24.419 Gestational diabetes mellitus in pregnancy, unspecified control (principal); Z3A.34 34 weeks gestation of pregnancy
CPT/HCPCS: 76816; 76818

== ENCOUNTER 2024-11-30 19:57 | Outpatient (OUT) | payer OTHER, SELFPAY ==
--- OUTSIDE RECORDS SUMMARY | 2024-11-16 16:00 | XMS_ITS | Encounter Summary ---
Author Organization [facility] Address [address] [facility] [place] [address] Care Team Providers Care Tipping Machine Operator Name Role Phone Unavailable Primary Care Provider Unavailabl e Encounter Details Date Type Department Care Team (Latest Contact Info) Description 11/16/2024 4:[address] [facility] [address] [place] [address] Floridalma Thomas, [place] [address] [place], [place] [phone] Third trimester ([facility]) (Primary Dx); Type 1 diabetes mellitus without complication (HCC); Insulin controlled gestational diabetes mellitus (GDM) in second trimester ([facility]); Encounter for supervision of other normal , third trimester ([facility]); Screening for iron deficiency anemia Social History Tobacco Use Types Packs/Day Years [...] Sign Reading Time Taken Comments Blood Pressure 104/60 11/16/2024 4:04 PM EDT Pulse - - Temperature - - Respiratory Rate - - Oxygen Saturation - - Inhaled Oxygen Concentration - - Weight 84.4 kg (186 lb) 11/16/2024 4:04 PM EDT Height - - Body Mass Index 32.95 05/27/2024 8:49 AM EST documented in this encounter Progress Notes * Floridalma Thomas CNM - 11/16/2024 4:00 PM EDT Subjective No chief complaint on file. Alyse Munguia is a 34 y.o. at 32w3d with a working estimated date of delivery of 01/08/2025, by Last Menstrual Period who presents for a routine visit. She denies vaginal bleeding, leakage of fluid, decreased movements, or contractions. OB History Para Term AB Living 3 2 1 1 2 SAB IAB Ectopic Multiple Live Births 2 # Outcome Date GA Lbr Edson/2nd Weight Sex Type Anes PTL Lv 3 Current 2 Term 05/28/22 37w1d 8 lb 3.9 oz F CS-Unspec Spinal N NICOLE 1 05/17/21 35w2d 07:40 / 01:07 6 lb 7.4 oz F Vag-Spont EPI Y NICOLE Complications: Diabetes mellitus (HCC) Her is complicated by: Type 1 diabetes Objective Physical Exam Weight: 186 lb Expected Total Weight Gain: 15 lb-25 lb Pregravid BMI: 28.53 BP: 104/60 Urine protein-negative Urine glucose-negative Assessment/Plan Diagnoses and all orders for this visit: Third trimester ([facility]) Type 1 diabetes mellitus without complication (HCC) - US biophysical profile wo non stress testing; Future - US biophysical profile wo non stress testing; Future - US biophysical profile wo non stress testing; Future - US OB follow up transabdominal approach; Future Insulin controlled gestational diabetes mellitus (GDM) in second trimester ([facility]) Encounter for supervision of other normal , third trimester ([facility]) Patient drives from [place] for her appts and states she does not want to drive to [place] for Nstsand BPPs and growths. We can do them in my office and I did let Dr Mendez know this. He saw her lastweek and C/S scheduled for 36 weeks. Nst today and reactive. She does not feel contractions, and denies estela clark. + movement Reactive NST Patient scheduling her NSTs and BPPs and growths for the rest of her today. Doing Saturday- Continue vitamin. Labs reviewed. GBS taken. Expected mode of delivery Follow up in 1 week for a routine visit. documented in this encounter Miscellaneous Notes * Addendum Note - Zahida Lai MA - 11/16/2024 4:00 PM EDTAddended by: ZAHIDA LAI on: 11/17/2024 10:17 AM Modules accepted: Orders * Addendum Note - Zahida Lai MA - 11/16/2024 4:00 PM EDTAddended by: ZAHIDA LAI on: 11/17/2024 10:49 AM Modules accepted: Orders documented in this encounter Plan of Treatment Upcoming Encounters Date Type Department Care Team (Late st Contact Info) Description 12/10/2024 8:30 AM EDT Routine [facility] [address] [phone] Gabriel Mendez DO [address] [place] [address] 12/14/2024 5:00 PM EDT [facility] [address] [place] [phone] Floridalma Thomas CNM [address] [place] [address] Scheduled Orders Name Type Priority Associated Diagnoses Orde r Schedule US biophysical profile w non stress test Imaging Routine Type 1 diabetes mellitus without complication (HCC) 8 Occurrences starting 11/17/2024 until 12/17/2024 US OB SCAN FOR GROWTH Imaging Routine Type 1 diabetes mellitus without complication (HCC) 3 Occurrences starting 11/17/2024 until 12/17/2024 CBC Lab Routine Screening for iron deficiency anemia Expected: 11/17/2024 (Approximate), Expires: 11/17/2025 documented as of this encounter Goals Goal Patient Goal Type Associated Problems Recent Progress Patient-Stated? Author Reminders Care Plan OB Reminders No Open Scheduling, Background documented as of this encounter Visit Diagnoses Diagnosis Third trimester ([facility])- Primary state, incidental Type 1 diabetes mellitus without complication ([facility]) Type I (juvenile type) diabetes mellitus without mention of complication, not stated as uncontrolled Insulin controlled gestational diabetes mellitus (GDM) in second trimester ([facility]) Encounter for supervision of other normal , third trimester ([facility]) Screening for iron deficiency anemia documented in this encounter Additional Health Concerns Active Problems Noted Date Diagnosed Date OB Reminders 07/14/2024 documented as of this encounter
--- OUTSIDE RECORDS SUMMARY | 2024-11-19 09:15 | XMS_ITS | Encounter Summary ---
Author Organization [employer] Former[facility] tem Address [id number] [address] [place] [address] Care Team Providers Care Stitcher Feeder Name Role Phone Unavailable Primary Care Provider Unavailabl e Encounter Details Date Type Department Care Team (Late st Contact Info) Description 11/19/2024 9:15 AM EDT Telemedicine [facility] [address] [place] [id number] Loi Pride MD [address] [place] [address] Type 1 diabetes mellitus during in third trimester (Primary Dx) Social History Tobacco Use Types Packs/Day Years Used Date Smoking Tobacco: Never Smokeless Tobacco: Never Alcohol Use Standard Drinks/Week Comments Not Currently 0 (1 standard drink = 0.6 oz pur e alcohol) Hunger Screening Answer Date Recorded Within the past 12 months we worried whether our food would run out before we got money to buy more. Never True 07/28/2024 Within the past 12 months th e food we bought just didn't last and we didn't have money to get more. Never True 07/28/2024 Estimated Date of Delivery Comme nts Yes 01/14/2025 Based on Ultraso und Sex and Gender Information Value Date Recorded Sex Assigned at Not on file Legal Sex Female 10:08 AM EST Gender Identity Not on file Sexual Orientation Not on file documented as of this encounter Progress Notes * Loi Pride MD - 11/19/2024 9:15 AM EDT Images from the original note were not included. [facility]- Diabetes Visit TELEMEDICINE VISIT: This is an audiovisual visit. This is done to assess the patient and to determine the best medical care. The patient was located in her parked car at work in [place] and the providerwas located at the medical office in [place]. The patient states they are not driving or taking care of other activities now. Consent to proceed obtained. Alyse Munguia is a 34 y.o. with type 1 diabetes. The patient was diagnosed at age 20 and has been treated with insulin. The patient's current regimen is: Omnipod pump The patient uses [employer] rosie 3+ to monitor her BG. The patient requires this testing due to variable BG, need for frequent dose adjustments, nocturnalhypoglycemia. Patient is feeling well today. She is currently at 32w0d. She is rising after meals. Usually adding in extra carbs for breakfast to help reduce postprandial spike. Eating oatmeal for breakfast- 24 grams of carbs but giving 35 grams.. She is not having nausea/ vomiting. No cramping or bleeding. A1c 8.5% at start of .Recently 6.3% Starting NSTs soon. Planned for C section December 16. Patient denies chest pain, vision changes, SOB, Nausea/ vomiting, numbness/ tingling/ pain in extremities, foot pain or ulcerations or edema. ROS otherwise negative if not mentioned above. Past Medical History: Diagnosis Date History of benign brain tumor Type 1 diabetes ([facility]) Past Surgical History: Procedure Laterality Date APPENDECTOMY BRAIN TUMOR EXCISION SECTION No family history on file. Social History Socioeconomic History Marital status: Spouse name: Not on file Number of children: Not on file Years of education: Not on file Highest education level: Not on file Occupational History Not on file Tobacco Use Smoking status: Never Smokeless tobacco: Never Substance and Sexual Activity Alcohol use: Not Currently Drug use: Never Sexual activity: Yes Partners: Male Other Topics Concern Not on file Social History Narrative Not on file Social Drivers of Health Financial Resource Strain: Not on file Food Insecurity: No Food Insecurity (07/28/2024) Hunger Screening Food Insecurity - Worry: Never True Food Insecurity - Inability: Never True Transportation Needs: Not on file Physical Activity: Not on file Stress: Not on file Social Connections: Not on file Interpersonal Safety: Not on file Housing Instability: Not on file Current Outpatient Medications: acetone, urine, test (KETONE URINE TEST) strip, Test urine if glucose over 200, Disp: 100 strip, Rfl: 6 aspirin 81 mg, Take 1 tablet (81 mg total) by mouth in the morning., Disp: , Rfl: blood-glucose,lever operator,cont (DEXCOM G7 PSYCHIATRIC NP) misc, 1 each by miscellaneous route in the morning., Disp: 1 each, Rfl: 0 DOCOSAHEXAENOIC ACID ORAL, Take by mouth. (Patient not taking: Reported on 07/28/2024), Disp: , Rfl: docusate sodium (COLACE) 100 mg capsule, Take 1 capsule (100 mg total) by mouth in the morning and 1 capsule (100 mg total) before bedtime., Disp: , Rfl: FREESTYLE ROSIE 3 PLUS SENSOR device, USE DIRECTED REPLACING SENSOR EVERY 15 DAYS, Disp: , Rfl: insulin glargine (LANTUS SOLOSTAR U-100 INSULIN) 100 unit/mL (3 mL) insulin pen, Inject 11 units subQ at bedtime., Disp: , Rfl: insulin lispro (HumaLOG) 100 unit/mL injection, Give 1:6 for breakfast, 1:5 for lunch, 1:5 for dinner, Disp: 30 mL, Rfl: 3 insulin community health nurse supervisor cart,aut,G6/7,cntr (OMNIPOD 5 G6-G7 INTRO KT,GEN5,) cartridge, Inject 1 each under the skin every 3 (three) days., Disp: 1 each, Rfl: 0 pen needle, diabetic 32 gauge x 5/32 needle, USE 5-6 TIMES DAILY WITH INSULIN, Disp: , Rfl: There are no hospital problems to display for this patient. EXAM: Last menstrual period 04/03/2024. There is no height or weight on file to calculate BMI. General- awake/ alert/ pleasant Breathing easily on ra Assessment and Plan Alyse Munguia is a 34 y.o. with type 1 diabetes. She is currently . A1c goal < 6% during We have discussed the issue of insulin-dependent diabetes mellitus and the effect of in detail. There is an elevated risk of malformation of the order of 22% in those who have [id number] 8.5 and higher. Patient aware that maternal hyperglycemia results in hyperglycemia leading to adverse outcomes in the growth and development. We reviewed with her the strategy for improving and outcome should be to achieve euglycemic state. Fasting BG goal 65-90. 1 hour postprandial hyperglycemia < 140. Goal A1c < 6%. Medications: She is using much more bolus compared to basal. Increase basal during the day. Increase insulin for meals. Insulin Instructions Pump Settings insulin lispro 100 unit/mL injection (HumaLOG) Last edited by Loi Pride MD on 11/19/2024 at 9:43 AM Basal Rate Total Basal Dose: 14.3 units/day Time units/hr 12:00 AM 0.5 6:00 AM 0.7 11:00 AM 0.6 4:00 PM 0.6 Blood Glucose Target Time mg/dL 12:00 AM 110 - 110 Sensitivity Factor Time mg/dL/unit 12:00 AM 50 Carb Ratio Time g/unit 12:00 AM 15 6:00 AM 9 11:00 AM 7 4:00 PM 7 More hypoglycemia off the pump than on Consider automated delivery during if BG still difficult to control without hypoglycemia. Baby aspirin starting at 14 weeks gestation Labs: none due Lifestyle changes: take insulin prior to the meal. Eat protein with each meal/ snack with complex carbs. Complications/ comorbidities Elevated A1c and blood glucose is associated with increased risk for complications including retinal, cardiac, neurological, and renal dysfunction that can lead to vision loss, heart attacks or stroke, amputation and renal failure. Tight glucose control and A1c goal (above) strongly recommended to r educe the risks of these complications/ outcomes. Ongoing diabetes education is encouraged. The signs/symptoms and treatment of hypoglycemia understood. The individual should not drive if symptoms of hypoglycemia are precieved and if possible the blood glucose should be check before driving or participating in dangerous activity. A diabetes ID is r ecommended. Yearly dilated eye examination and yearly urine Microalbumin to cr ratio are recommended. Goal blood pressure under 130/80. The LDL less than 100 mg/dl for primary prevention atherosclerosis and < 70 mg/dL as secondary prevention. Daily examination of the feet for signs of injury and of the shoes for foreign body or any deformity that could lead to foot injury. Please refer to [facility] note regarding timing of delivery and care. Follow up in 1-2 weeks while october10/26/24. LOI PRIDE MD [facility] documented in this encounter Plan of Treatment Upcoming Encounters Date Type Department Care Team (Late st Contact Info) Description 12/02/2024 9:00 AM EDT Office Visit [facility] [address] [place] [address] Loi Pride MD [address] [facility] [address] [facility] [address] [place] [address] 12/14/2024 8:00 AM EDT Telemedicine M[facility]- Medicine at [place] [id number] [place] [phone] Chad Gregg MD [address] [facility] [place] [address] documented as of this encounter Visit Diagnoses Diagnosis Type 1 diabetes mellitus during in third trimester- Primary documented in this encounter
--- OUTSIDE RECORDS SUMMARY | 2024-11-26 08:30 | XMS_ITS | Encounter Summary ---
Author Organization [facility] Address [address] [place] [address] Care Team Providers Care Check Clerk Name Role Phone Unavailable Primary Care Provider Unavailabl e Reason for Visit * Reason Comments Routine Visit Encounter Details Date Type Department Care Team (Latest Contact Info) Description 11/26/2024 8:30 AM EDT Routine [facility] [place] [facility] [address] [employer] [phone] Gabriel Mendez DO [address] [place] [address] 33 weeks gestation of ([facility]); Type 1 diabetes mellitus without complication ([facility]) Social History Tobacco Use Types Packs/Day Years [...] Sign Reading Time Taken Comments Blood Pressure 116/74 11/26/2024 8:48 AM EDT Pulse - - Temperature - - Respiratory Rate - - Oxygen Saturation - - Inhaled Oxygen Concentration - - Weight 84.4 kg (186 lb 1.9 oz) 11/26/2024 8:48 A M EDT Height - - Body Mass Index 32.97 05/27/2024 8:49 AM EST documented in this encounter Progress Notes * Marielos Mccain LPN - 11/26/2024 8:30 AM EDT Reason for Appointment: Patient ID: Alyse Munguia is a 34 y.o. female who presents for Routine Visit Patient presents today for Return OB appointment. and Consult appointment. MEDICATIONS Current Outpatient Medications Medication [...] Lantus SoloStar 100 UNIT/ML pen 10 units YC-Fcm-YD-[place]-3 ( Gummies/DHA & FA) 0.4-32.5 MG chewable tablet Oral ReliOn Pen Mascotte 32G X 4 MM misc USE 5-6 [...] nursing note reviewed. Exam conducted with a paint supervisor present. Vitals: Estimated body mass index is 32.97 kg/m?? as calculated from the following: Height as of 05/27/24: 5' 3 . Weight as of this encounter: 186 lb 1.9 oz. BP: 116/74 Patient's last menstrual period was 04/03/2024 (exact date). ASSESSMENT & PLAN ICD-10-CM 1. 33 weeks gestation of ([facility]) Z3A.33 POCT urinalysis dipstick manually resulted 2. Type 1 diabetes mellitus without complication (HCC) E10.9 Patient presents today for a routine obstetrics appointment. Patient is currently 33w0d with a Estimated Date of Delivery: 01/14/25. Patient was previously seen in office to discuss upcoming . Discussed management of delivery with Type I diabetes. Patient voiced that she was contacted by [facility] to setup follow up appointment. Informed patient that provider will work with FB to setup her up with NST/BPP same day as appointment in office on . Patient is able to have Saturday NST/BPP (if indicated) at what time works best for her. Patient was informed that with CHANDAN of 01/14/25 she will have repeat c- section on 12/24/24 at 37 weeks gestation. Patient aware that Rivka Thomas will be notified of surgical date and that date will not change. Patient to have GBS at next appointment as well as Signing Rpt consents. Patient voiced that her sugars have been WNL. Patient to return to clinic in 2 week. Discussed situation if patient goes into labor prior to scheduled . Patient voiced that her Sludge Filtration Attendant is connected to her pump and able to see her sugar results, specialist reaches out weekly if/not televisit every 2 weeks. Documented by Marielos Mccain LPN on behalf of: Gabriel Mendez DO documented in this encounter Plan of Treatment Upcoming Encounters Date Type Department Care Team (Late st Contact Info) Description 12/10/2024 8:30 AM EDT Routine [facility] [place] [facility] [address] [place] [phone] Gabriel Mendez DO [address] [place] [address] 12/14/2024 5:00 PM EDT Routine [facility] [address] [place] [address] Floridalma Thomas CNM [address] [place], [place] [phone] documented as of this encounter Goals Goal Patient Goal Type Associated Problems Recent Progress Patient-Stated? Author Reminders Care Plan OB Reminders No Open Scheduling, Background documented as of this encounter Procedures Procedure Name Priority Date/Time Associated Diagnosis Comments POCT URINALYSIS DIPSTICK Routine 11/26/2024 9:09 AM EDT 33 weeks gestation of ([facility]) documented in this encounter Results * (ABNORMAL) POCT urinalysis dipstick manually resulted (11/26/2024 9:09 AM EDT) Color, UA Yellow Clarity, UA Clear Glucose, UA Negative Negative - 1999(110) ++++ mg/dL Bilirubin, UA Negative Negative - 4(70) +++ mg/dL Ketones, UA Positive Negative - 160(16) ++++ mg/dL Spec Grav, UA 1.010 1 - 1.03 Blood, UA Negative Negative - 50 Bahman/mcL pH, UA 6.5 5 - 9 Protein, UA Negative Negative - 2000(20) ++++ mg/dL Urobilinogen, UA 1.0 0.2 - 12 mg/dL Leukocytes, UA Positive Negative - 500+++ Leisa/mcL Nitrite, UA Negative Negative - Positive Urine 11/26/2024 9:09 AM EDT Gabriel Mendez DO POINT OF CARE TEST ENTER/EDIT OR DERABLES Final Result documented in this encounter Visit Diagnoses Diagnosis 33 weeks gestation of ([facility]) Type 1 diabetes mellitus without complication (HCC) Type I (juvenile type) diabetes mellitus without mention of complication, not stated as uncontrolled documented in this encounter Additional Health Concerns Active Problems Noted Date Diagnosed Date OB Reminders 07/14/2024 documented as of this encounter
--- OUTSIDE RECORDS SUMMARY | 2024-11-30 19:59 | XMS_ITS | Encounter Summary ---
Author Organization [facility] Address [address] [place] [address] Care Team Providers Care Hook Loader Name Role Phone Unavailable Primary Care Provider Unavailabl e Encounter Details Date Type Department Care Team (Late Contact Info) Description 11/26/2024 Results Follow-Up FLORINDA MOLINA [address] [place] [address] Floridalma Thomas, [place] [address] [place], [place] [phone] Social History Tobacco Use Types Packs/Day Years [...] Department Care Team (Late Contact Info) Description 12/10/2024 8:30 AM EDT Routine FLORINDA MOLINA [address] [place] [phone] Gabriel Mendez DO [address] [facility] [place] [address] 12/14/2024 5:00 PM EDT Routine FLORINDA NATARAJANGYIta [address] [place] [address] Floridalma Thomas, CNBrit [address] [place] [address] documented as of this encounter Goals Goal Patient Goal Type Associated Problems Recent Progress Patient-Stated? Author Reminders Care Plan OB Reminders No Open Scheduling, Background documented as of this encounter Visit Diagnoses Not on filedocumented in this encounter Additional Health Concerns Active Problems Noted Date Diagnosed Date OB Reminders 07/14/2024 documented as of this encounter
--- OUTSIDE RECORDS SUMMARY | 2024-11-30 19:59 | XMS_ITS | Encounter Summary ---
Author Organization [email or web address] s tem Address [facility]-[id number] [address] [place] [address] Care Team Providers Care Sport Intern Name Role Phone Unavailable Primary Care Provider Unavailabl e Encounter Details Date Type Department Care Team (Late Contact Info) Description 11/23/2024 Orders Only [facility] [address] [facility] [address] [place] [address] Dolores Pride MD [address] [facility] [address] [address] [address] [place] [address] Social History Tobacco Use Types Packs/Day Years [...] 9:00 AM EDT Office Visit [facility] [address] [facility] [address] [place] [address] Dolores Pride MD [address] [facility] [address] [place] [address] 12/14/2024 8:00 AM EDT Telemedicine Maternal- Medicine at [facility] [address] [place] [address] Chad Gregg MD [address], [address] [place] [address] documented as of this encounter Visit Diagnoses Not on filedocumented in this encounter
--- OUTSIDE RECORDS SUMMARY | 2024-11-30 19:59 | XMS_ITS | Encounter Summary ---
Author Organization [employer] [facility] tem Address [facility]-[id number] [address] [place] [address] Care Team Providers Care Binder Cutter Name Role Phone Unavailable Primary Care Provider Unavailabl e Encounter Details Date Type Department Care Team (Late Contact Info) Description 08/17/2024 Orders Only Maternal- Medicine at [facility] [address] [place] [phone] Chad Gregg MD [address] [facility] [address] [place] [address] Social History Tobacco Use Types Packs/Day Years [...] 9:00 AM EDT Office Visit [facility] [address] [facility] [address] [place] [address] Dolores Pride MD [address] [facility] [address] [place] [address] 12/14/2024 8:00 AM EDT Telemedicine Maternal- Medicine at [facility] [address] [place] [address] Chad Gregg MD [address] [place] [address] documented as of this encounter Visit Diagnoses Not on filedocumented in this encounter
--- OUTSIDE RECORDS SUMMARY | 2024-11-30 19:59 | XMS_ITS | Encounter Summary ---
Author Organization [facility] Address [address] [place] [address] Care Team Providers Care Director Retail Brand Development Name Role Phone Unavailable Primary Care Provider Unavailabl e Encounter Details Date Type Department Care Team (Late Contact Info) Description 11/26/2024 Results Follow-Up FLORINDA MOLINA [address] [place] [address] Floridalma Thomas, [place] [address] [place], [place] [phone] Social History Tobacco Use Types Packs/Day Years [...] 8:30 AM EDT Routine FLORINDA MOLINA [address] [facility] [place] [phone] Gabriel Mendez DO [address] [place] [address] 12/14/2024 5:00 PM EDT Routine FLORINDA NATARAJANGYIta [address] [place] [address] Floridalma Thomas, CNBrit [address] [place] [address] documented as of this encounter [...]
--- OUTSIDE RECORDS SUMMARY | 2024-11-30 19:59 | XMS_ITS | Encounter Summary ---
Author Organization [facility] Address [address] [place] [address] Care Team Providers Care Down Filler Name Role Phone Unavailable Primary Care Provider Unavailabl e Encounter Details Date Type Department Care Team (Late st Contact Info) Description 11/26/2024 Clinisync Result Encounter [facility] External Department Unsolicited Golden Thomas CNM [address] [place] [address] Social History Tobacco Use Types [...] 12/10/2024 8:30 AM EDT Routine [facility] [address] [place] [phone] Gabriel Mendez DO [address] [place], [place] [address] 12/14/2024 5:00 PM EDT Routine [facility] [address] [place] [phone] Golden Thomas CNM [address] [place] [address] documented as of this encounter Goals Goal Patient Goal Type Associated Problems Recent Progress Patient-Stated? Author Reminders Care Plan OB Reminders No Open Scheduling, Background documented as of this encounter Procedures Procedure Name Priority Date/Time Associated Diagnosis Comments US OB BPP W NON-STRESS 11/26/2024 1:23 PM EDT documented in this encounter Results * US OB BPP W NON-STRESS (11/26/2024 1:23 PM EDT) Anatomical Region Laterality Modality Other 11/26/2024 1:23 PM EDT Narrative 11/26/2024 1:26 PM EDT The [address] [address] Ultrasound Report Signed Patient: ALYSE MUNGUIA MR#: [id number] : 1990 Acct:[id number] Age/Sex: 34 / F ADM Date: 11/26/24 Loc: US Attending Dr: GOLDEN THOMAS APRN, CNM Ordering Physician: GOLDEN THOMAS APRN, CNM Date of Service: 11/26/24 Procedure(s): US OB BPP w non-stress Accession Number(s): [id number] cc: GOLDEN THOMAS APRN, CNM; Physician,Non-Staff M.D. The [address] [address] Patient Name: ALYSE MUNGUIA MRN: [id number] date: 1990 Sex: F Assigned Patient Location: US Current Patient Location: Accession/Order Number: [id number] Exam Date: 11/26/2024 13:22 Report Date: 11/26/2024 13:23 At the request of: GOLDEN THOMAS APRN, CNM Procedure: US OB BPP w non-stress Biophysical profile. Reason for exam: Type 1 diabetes COMPARISON: 11/19/2024 TECHNIQUE: Transabdominal imaging of the gravid uterus was obtained. FINDINGS: The personalized living manager nurse reports a BPP of 8 out of 8. MASON is normal at 12.6 cm. heart rate 126 bpm. US/US OB BPP w non-stress IMPRESSION: BPP 8 out of 8. Impression dictated by: Luc Echeverria Jr., D.O. 11/26/2024 1:23 PM Dictation Location: [place] [address] Electronically authenticated by: [id number] Y Date: 11/26/2024 13:23 Dictated By: Luc Echeverria M.D. Signed By: 11/26/24 1326 DD/ 1323 TD/TT: Touch Up Painter: Procedure Note Radiology, Radiologist, - 11/26/2024 [place] [address] Ultrasound Report Signed Patient: MOLLY MUNGUIA#: [id number] : 1990Acct:[id number] Age/Sex: 34 / FADM Date: 11/26/24 Loc: US Attending Dr: GOLDEN THOMAS APRN, CNM Ordering Physician: GOLDEN THOMAS APRN, CNM Date of Service: 11/26/24 Procedure(s): US OB BPP w non-stress Accession Number(s): [id number] cc: GOLDEN THOMAS APRN, CNM; Physician,Non-Staff M.Edwardo The [address] [address] Patient Name: AYLSE MUNGUIA MRN: [id number] date: 1990 Sex: F Assigned Patient Location: US Current Patient Location: Accession/Order Number: [id number] Exam Date: 11/26/2024 13:22 Report Date: 11/26/2024 13:23 At the request of: GOLDEN THOMAS APRN, CNM Procedure: US OB BPP w non-stress Biophysical profile. Reason for exam: Type 1 diabetes COMPARISON: 11/19/2024 TECHNIQUE: Transabdominal imaging of the gravid uterus was obtained. FINDINGS: The personalized living manager nurse reports a BPP of 8 out of 8. MASON is normal at12.6 cm. heart rate 126 bpm. US/US OB BPP w non-stress IMPRESSION: BPP 8 out of 8. Impression dictated by: Luc Echeverria Jr., D.O. 11/26/2024 1:23 PM Dictation Location: [place] [address] Electronically authenticated by: [id number] Y Date: 3:23 Dictated By: Luc Echeverria M.D. Signed By:11/26/24 1326 DD/ 1323 TD/TT: Touch Up Painter: us Golden Thomas CNM [facility] Final Resu lt documented in this encounter Visit Diagnoses Not on filedocumented in this encounter Additional Health Concerns Active Problems Noted Date Diagnosed Date OB Reminders 07/14/2024 documented as of this encounter
--- OUTSIDE RECORDS SUMMARY | 2024-11-30 19:59 | XMS_ITS | Encounter Summary ---
Author Organization [facility] Address [address] [place] [address] [place] [address] Care Team Providers Care Enrolled Agent Name Role Phone Unavailable Primary Care Provider Unavailabl e Encounter Details Date Type Department Care Team (Late st Contact Info) Description 11/26/2024 Clinisync Result Encounter [facility] External Department Unsolicited Golden Thomas CNM [address] [place] [address] Social History Tobacco Use Types [...] AM EDT Routine [facility] [address] [place] [phone] Gabriel Mendez DO [address] [place], [place] [address] 12/14/2024 5:00 PM EDT Routine [facility] [address] [place] [phone] Golden Thomas CNM [address] [place] [address] documented as of this encounter Goals Goal Patient Goal Type Associated Problems Recent Progress Patient-Stated? Author Reminders Care Plan OB Reminders No Open Scheduling, Background documented as of this encounter Procedures Procedure Name Priority Date/Time Associated Diagnosis Comments US OB GROWTH 11/26/2024 1:25 PM EDT documented in this encounter Results * US OB GROWTH (11/26/2024 1:25 PM EDT) Anatomical Region Laterality Modality Other 11/26/2024 1:25 PM EDT Narrative 11/26/2024 1:28 [place] [address] Ultrasound Report Signed Patient: ALYSE MUNGUIA MR#: [id number] : 1990 Acct:[id number] Age/Sex: 34 / F ADM Date: 11/26/24 Loc: US Attending Dr: GOLDEN THOMAS APRN, CNM Ordering Physician: GOLDEN THOMAS APRN, CNM Date of Service: 11/26/24 Procedure(s): US OB growth Accession Number(s): [id number] cc: OGLDEN THOMAS APRN, CNM; Physician,Non-Staff M.D. The [address] [address] Patient Name: ALYSE MUNGUIA MRN: [facility]:[id number] date: 1990 Sex: F Assigned Patient Location: [facility] Current Patient Location: Accession/Order Number: [id number] Exam Date: 11/26/2024 13:23 Report Date: 11/26/2024 13:25 At the request of: GOLDEN THOMAS APRN, CNM Procedure: US OB growth OB ultrasound. Reason for exam:Type 1 diabetes Comparison:None Technique: Transabdominal imaging of the gravid uterus was obtained. Findings: Single live intrauterine 34 weeks 6 days by anatomic measurements. Appropriate growth by dating. Estimated weight is 2473 g which is approximately 66 percentile. heart rate 126 bpm. MASON is normal at 12.58 cm. position cephalic at time of scanning. US/US OB growth Impression: Appropriate growth. Impression dictated by: Luc Echeverria Jr., D.O. 11/26/2024 1:25 PM Dictation Location: [place] [address] Electronically authenticated by: [id number] Y Date: 11/26/2024 13:25 Dictated By: Luc Echeverria M.D. Signed By: 11/26/24 1328 DD/ 132 TD/TT: Geochemical Laboratory Technician: Procedure Note Radiology, Radiologist, MD - 11/26/2024 [place] [address] Ultrasound Report Signed Patient: MOLLY MUNGUIA#: [id number] : 1990Acct:[id number] Age/Sex: 34 / FADM Date: 11/26/24 Loc: US Attending Dr: GOLDEN THOMAS APRN, CNM Ordering Physician: GOLDEN THOMAS APRN, CNM Date of Service: 11/26/24 Procedure(s): US OB growth Accession Number(s): [id number] cc: GOLDEN THOMAS APRN, CNM; Physician,Non-Staff MGraciela The [place] [id number] Patient Name: ALYSE MUNGUIA MRN: [facility]:[id number] date: 1990 Sex: F Assigned Patient Location: [facility] Current Patient Location: Accession/Order Number: [id number] Exam Date: 11/26/2024 13:23 Report Date: 11/26/2024 13:25 At the request of: GOLDEN THOMAS APRN, CNM Procedure: US OB growth OB ultrasound. Reason for exam:Type 1 diabetes Comparison:None Technique: Transabdominal imaging of the gravid uterus was obtained. Findings: Single live intrauterine 34 weeks 6 days by anatomicmeasurements. Appropriate growth by dating. Estimated weight is 2473 g which is approximately 66 percentile. heart rate 126 bpm. MASON is normal at 12.58 cm. position cephalic at time of scanning. US/US OB growth Impression: Appropriate growth. Impression dictated by: Luc Echeverria Jr., D.O. 11/26/2024 1:25 PM Dictation Location: [place] [address] Electronically authenticated by: [id number] Y Date: 3:25 Dictated By: Luc Echeverria M.D. Signed By:11/26/24 1328 DD/ 1325 TD/TT: Geochemical Laboratory Technician: us Golden Thomas CNM [facility] Final Resu lt documented in this encounter Visit Diagnoses Not on filedocumented in this encounter Additional Health Concerns Active Problems Noted Date Diagnosed Date OB Reminders 07/14/2024 documented as of this encounter
--- OUTSIDE RECORDS SUMMARY | 2024-11-30 19:59 | XMS_ITS | Encounter Summary ---
Author Organization [facility] Address [facility]-[id number] [address] [place] [address] Care Team Providers Care Compensation Coordinator Name Role Phone Unavailable Primary Care Provider [...] Office Visit [facility] [address] [facility] [facility] [place] [phone] Dolores Pride MD [address] [facility] [place] [address] 12/14/2024 8:00 AM EDT Telemedicine Maternal- Medicine at [facility] [address] [place] [phone] Chad Gergg MD [address], [address] [place] [address] documented as of this encounter Visit Diagnoses Not on filedocumented in this encounter
--- OUTSIDE RECORDS SUMMARY | 2024-11-30 19:59 | XMS_ITS | Encounter Summary ---
Author Organization [facility] Address [address] [place] [address] Care Team Providers Care Rate Manager Name Role Phone Unavailable Primary Care Provider Unavailabl e Encounter Details Date Type Department Care Team (Latest Contact Info) Description 11/25/2024 Travel Social History Tobacco Use Types Packs/Day [...] Description 12/10/2024 8:30 AM EDT Routine [facility] [address] [place] [address] Gabriel Mendez DO [address] [place] [address] 12/14/2024 5:00 PM EDT Routine [facility] [address] [place] [address] Floridalma Thomas CNM [address] [place], [place] [phone] documented as of this encounter Goals Goal Patient Goal Type Associated Problems Recent Progress Patient-Stated? Author Reminders Care Plan OB Reminders No Open Scheduling, Background documented as of this encounter Visit Diagnoses Not on filedocumented in this encounter Additional Health Concerns Active Problems Noted Date Diagnosed Date OB Reminders 07/14/2024 documented as of this encounter
--- OUTSIDE RECORDS SUMMARY | 2024-11-30 19:59 | XMS_ITS | Encounter Summary ---
Author Organization [facility] tem Address [id number] [address] [place] [address] Care Team Providers Care Master Of Ceremonies Name Role Phone Unavailable Primary Care Provider Unavailabl e Encounter Details Date Type Department Care Team (Late st Contact Info) Description 11/17/2024 Telephone Maternal- Medicine at [facility] [address] [facility] [facility] [facility] [place] [place] [address] Michelle Siegel, RN Social History [...] Thomas CNM regarding discrepancies in patient's CHANDAN. Ironing Worker reviewed with Dr. Gregg and confirmed CHANDAN [...] Description 12/02/2024 9:00 AM EDT Office Visit [facility] [place] [facility] [address] [facility] [address] [address] [place] [address] Dolores Pride MD [address] [facility] [address] [place] [address] 12/14/2024 8:00 AM EDT Telemedicine Maternal- Medicine at [facility] [address] [place] [address] Chad Gregg MD [address] [facility] [address] [place] [address] documented as of this encounter Visit Diagnoses Diagnosis Type 1 diabetes mellitus in , first trimester- Primary documented in this encounter
--- OUTSIDE RECORDS SUMMARY | 2024-11-30 20:00 | XMS_ITS | Encounter Summary ---
Author Organization [facility] Address [address] [place] [address] [place] [address] Care Team Providers Care Factory Representative Name Role Phone Unavailable Primary Care Provider Unavailabl e Encounter Details Date Type Department Care Team (Late st Contact Info) Description 11/20/2024 Clinisync Result Encounter NOMS External Department Unsolicited Golden Thomas CNM [address] [place] [address] Social History Tobacco Use Types [...] AM EDT Routine [facility] Freeman OBGYIta [address] [facility] [place] [phone] Gabriel Mendez DO [address] [place], [place] [address] 12/14/2024 5:00 PM EDT Routine [facility] Mariann OBMARN [address] [place] [address] Golden Thomas CNM [address] [place] [address] documented as of this encounter Goals Goal [...] AM EDT Narrative 11/20/2024 10:19 AM EDT [address] [address] Ultrasound Report Signed Patient: ALYSE MUNGUIA MR#: [id number] : 1990 Acct:[id number] Age/Sex: 34 / F ADM Date: 11/19/24 Loc: US Attending Dr: GOLDEN THOMAS APRN, CNM Ordering Physician: GOLDEN THOMAS APRN, CNM Date of Service: 11/19/24 Procedure(s): US OB BPP w non-stress Accession Number(s): [id number] cc: GOLDEN THOMAS APRN, CNM; Physician,Non-Staff M.D. The [address] [address] Patient Name: ALYSE MUNGUIA MRN: [id number] date: 1990 Sex: F Assigned Patient Location: [facility] Current Patient Location: Accession/Order Number: [id number] Exam Date: 11/20/2024 10:06 Report Date: 11/20/2024 10:16 At the request of: GOLDEN THOMAS APRN, CNM Procedure: US OB BPP w non-stress Biophysical profile. Reason for exam: Type 1 diabetes COMPARISON: None TECHNIQUE: Transabdominal imaging of the gravid uterus was obtained. FINDINGS: The energy sales broker reports a BPP of 8 out of 8. MASON is normal at 13.6 cm. heart rate 139 bpm. US/US OB BPP w non-stress IMPRESSION: BPP 8 out of 8. Impression dictated by: Luc Echeverria Jr., D.O. 11/20/2024 10:16 AM Dictation Location: [place] [address] Electronically authenticated by: [id number] Y Date: 11/20/2024 10:16 Dictated By: Luc Echeverria M.D. Signed By: 11/20/24 1019 DD/ 1016 TD/TT: Inspector Clip On Sunglasses: Procedure Note Radiology, Radiologist, MD - 11/20/2024 [place] [address] Ultrasound Report Signed Patient: MOLLY MUNGUIA#: [id number] : 1990Acct:[id number] Age/Sex: 34 / FADM Date: 11/19/24 Loc: US Attending Dr: GOLDEN THOMAS APRN, CNM Ordering Physician: GOLDEN THOMAS APRN, CNM Date of Service: 11/19/24 Procedure(s): US OB BPP w non-stress Accession Number(s): [id number] cc: GOLDEN THOMAS APRN, CNM; Physician,Non-Staff MGraciela The [address] [id number] Patient Name: ALYSE MUNGUIA MRN: [facility]:[id number] date: 1990 Sex: F Assigned Patient Location: [facility] Current Patient Location: Accession/Order Number: [id number] Exam Date: 11/20/2024 10:06 Report Date: 11/20/2024 10:16 At the request of: GOLDEN THOMAS APRN, CNM Procedure: US OB BPP w non-stress Biophysical profile. Reason for exam: Type 1 diabetes COMPARISON: None TECHNIQUE: Transabdominal imaging of the gravid uterus was obtained. FINDINGS: The energy sales broker reports a BPP of 8 out of 8. MASON is normal at13.6 cm. heart rate 139 bpm. US/US OB BPP w non-stress IMPRESSION: BPP 8 out of 8. Impression dictated by: Luc Echeverria Jr., D.O. 11/20/2024 10:16 AM Dictation [facility] Electronically authenticated by: [id number] Y Date: 0:16 Dictated By: Luc Echeverria M.D. Signed By:11/20/24 1019 DD/ 1016 TD/TT: Inspector Clip On Sunglasses: us Golden Thomas CNM [facility] Final Resu lt documented in this encounter Visit Diagnoses Not on filedocumented in this encounter Additional Health Concerns Active Problems Noted Date Diagnosed Date OB Reminders 07/14/2024 documented as of this encounter
--- OUTSIDE RECORDS SUMMARY | 2024-11-30 20:00 | XMS_ITS | Encounter Summary ---
Author Organization [facility] Address [address] [place] [address] Care Team Providers Care Home Agent Name Role Phone Unavailable Primary Care Provider Unavailabl e Encounter Details Date Type Department Care Team (Late Contact Info) Description 11/26/2024 Bamboo flowsheet NOMOdilon MOLINA [address] [place] [address] Gabriel Mendez DO [address] [place] [address] Dr [place]hs[place], [place] [address] Social History Tobacco Use Types Packs/Day Years [...] 12/10/2024 8:30 AM EDT Routine [facility] Freeman MOLINA [address] [place] [address] Gabriel Mendez DO [address] [place] [address] Aditya [place], [place] [phone] 12/14/2024 5:00 PM EDT Routine [facility] Mariann OBMARN [address] [place] [address] Floridalma Thomas, CNM [address] [place] [address] documented as of this encounter [...]
--- OUTSIDE RECORDS SUMMARY | 2024-11-30 20:00 | XMS_ITS | Encounter Summary ---
Author Organization [facility] Address [address] [place] [address] Care Team Providers Care Tie Up Worker Name Role Phone Unavailable Primary Care Provider Unavailabl e Encounter Details Date Type Department Care Team (Late Contact Info) Description 11/23/2024 Results Follow-Up FLORINDA MOLINA [address] [place] [address] Floridalma Thomas, [place] [address] [place], [place] [phone] Social History Tobacco Use Types Packs/Day Years [...] 8:30 AM EDT Routine FLORINDA MOLINA [address] [facility] [place] [phone] Gabriel Mendez DO [address] [facility] [place] [address] 12/14/2024 5:00 PM EDT Routine FLORINDA NATARAJANGYIta [address] [place] [address] Floridalma Thomas, CNBrit [address] [place] [address] documented as of this encounter [...]
--- OUTSIDE RECORDS SUMMARY | 2024-11-30 20:00 | XMS_ITS | Encounter Summary ---
Author Organization [facility] Address [address] [place] [address] Care Team Providers Care Freight Claim Investigator Name Role Phone Unavailable Primary Care Provider Unavailabl e Reason for Referral * Imaging (Routine) - Closed Specialty Diagnoses / Procedures Referred By Sejal lugo Referred To Contact Radiology Diagnoses Brain cyst Procedures MRI BRAIN W WO CONTRAST Anthony Sherman MD [address] [facility] [address] [place] [address] Phone: tel: fax: Referral ID Status Reason Start Date Expiration Date Visits Re quested Visits Authorized [id number] Closed 08/06/2023 09/20/2023 1 1 Encounter Details Date Type Department Care Team (Latest Contact Info) Description 08/08/2023 Transcribe Orders [facility] [address] [place], [place] [id number] Anthony Sherman MD [address] [place] [address] Brain cyst (Primary Dx) Social [...]
--- OUTSIDE RECORDS SUMMARY | 2024-11-30 20:00 | XMS_ITS | Encounter Summary ---
Author Organization [facility] Address [address] [place] [address] Care Team Providers Care Filter Press Pumper Name Role Phone Unavailable Primary Care Provider Unavailabl e Encounter Details Date Type Department Care Team (Late Contact Info) Description 07/14/2024 Abstract FLORINDA MOLINA [address] [place] [address] Floridalma Thomas CN [address] [place] [address] Social History Tobacco Use Types [...] 8:30 AM EDT Routine FLORINDA MOLINA [address] [facility] [place] [address] Gabriel Mendez DO [address] [place] [address] 12/14/2024 5:00 PM EDT Routine FLORINDA MOLINA [address] [place] [address] Floridalma Thomas, CNM [address] [place] [address] documented as of this encounter [...]
--- OUTSIDE RECORDS SUMMARY | 2024-11-30 20:00 | XMS_ITS | Encounter Summary ---
Author Organization [facility] Address [address] [place] [address] Care Team Providers Care Dry Mill Operator Name Role Phone Unavailable Primary Care Provider Unavailabl e Encounter Details Date Type Department Care Team (Late st Contact Info) Description 05/05/2024 Orders Only FLORINDA Waite [facility]BGYN [address] [place] [address] Floridalma Thomas CNM [address] [place], [place] [phone] Amenorrhea Social History Tobacco Use Types Packs/Day [...] EDT Routine FLORINDA MOLINA [address] [facility] [place] [address] Gabriel Mendez DO [address] [facility] [place] [address] 12/14/2024 5:00 PM EDT Routine FLORINDA NATARAJANGYN [address] [place] [address] Floridalma Thomas CNM [address] [place], [place] [phone] Scheduled Orders Name Type Priority Associated Diagnoses Orde r Schedule US OB transvaginal Imaging Routine Amenorrhea Expected: 05/05/2024, Expires: 05/05/2025 documented as of this encounter Visit Diagnoses Diagnosis Amenorrhea Absence of menstruation documented in this encounter
--- OUTSIDE RECORDS SUMMARY | 2024-11-30 20:00 | XMS_ITS | Clinical Summary ---
Author Organization LAFASO tem Address [id number] [address] [place] [address] Care Team Providers Care Aqua Ammonia Operator Name Role Phone Unavailable Primary Care [...] 200 100 strip 6 5 Active insulin clinical resource director cart,aut,G6/7, cntr (OMNIPOD 5 G6-G7 INTRO KT,GEN5,) cartridgeIndic ations:Type 1 diabetes mellitus in , first trimester Inject 1 each under the skin every 3 (three) days. 1 each 5 Active blood-glucose, rn resource nurse,cont (DEXCOM G7 ENTRY LEVEL MANAGEMENT) miscIndication s:Type 1 diabetes mellitus during in [...] Team Description 11/23/2024 Orders Only [facility] [address] [place] [address] Dolores Pride MD 11/19/2024 9:15 AM EDT Telemedicine [facility] [address] [place] [address] Dolores Pride MD Type 1 diabetes mellitus during in third trimester (Primary Dx) 11/19/2024 Travel 11/17/2024 Telephone Maternal- Medicine at [facility] [address] [place] [address] Michelle Siegel, RN 11/09/2024 Orders Only [facility] [address] [facility] [address] [facility] [place] [address] Dolores Pride MD 11/09/2024 Telephone [facility] [address] [facility] [address] [facility] [place] [address] Keeley Robles CMA 11/05/2024 11:00 AM EDT Telemedicine [facility] [address] [address] [facility] [place] [address] Dolores Pride MD Type 1 diabetes mellitus during in third trimester (Primary Dx) 11/05/2024 Travel 11/02/2024 Travel 10/26/2024 12:00 PM EDT Telemedicine [facility] [address] [facility] [address] [facility] [address] [place] [address] Dolores Pride MD Type 1 diabetes mellitus during in second trimester (Primary Dx) 10/26/2024 Travel 10/21/2024 Orders Only Maternal- Medicine at [place] [address] [place] [address] Chad Gregg MD Type 1 diabetes mellitus during in second trimester 10/21/2024 Documentation Maternal- Medicine at [facility] [address] [place] [address] Treasure Freeman, CAMPOS 10/20/2024 Telephone Maternal- Medicine at [facility] [address] [place] [address] Shireen Lopez, CAMPOS 10/15/2024 11:00 AM EDT Telemedicine [facility] [address] [facility] [address] [place] [address] Dolores Pride MD Type 1 diabetes mellitus during in second trimester (Primary Dx) 10/14/2024 Travel 10/07/2024 Orders Only [facility] [address] [facility] [place] [address] Dolores Pride MD 10/06/2024 Orders Only [facility] [address] [place] [address] Dolores Pride MD 10/01/2024 10:00 AM EDT Telemedicine [facility] [address] [facility] [address] [facility] [place] [address] Dolores Pride MD Type 1 diabetes mellitus during in second trimester 09/30/2024 Travel 09/24/2024 8:00 AM EDT Telemedicine [facility] [address] [facility] [facility] [address] [facility] [place] [address] Dolores Pride MD Type 1 diabetes mellitus during in second trimester (Primary Dx) 09/23/2024 Travel 09/09/2024 Orders Only [facility] [address] [facility] [address] [place] [address] Dolores Pride MD 09/09/2024 Telephone [facility] [address] [facility] [address] [place] [address] Shireen Lopez RN 09/08/2024 Travel 08/31/2024 Orders Only [facility] [address] [facility] [address] [place] [address] Dolores Pride MD Type 1 diabetes mellitus during in second trimester 08/31/2024 Telephone Maternal- Medicine at [place] [address] [place] [address] Melony Roy, RN Appointment from Last 3 Months Social History Tobacco [...] Description 12/02/2024 9:00 AM EDT Office Visit [facility] [address] [facility] [facility] [address] [place] [address] Dolores Pride MD [address] [facility] [address] [facility] [facility] [address] [place] [address] 12/14/2024 8:00 AM EDT Telemedicine Maternal- Medicine at [facility] [address] [place] [address] Chad Gregg MD [address] [place] [address] Health Maintenance Due Date Last Done Comments Diabetic Ophthalmology Exam 1990 Depression Screening 2004 Adult BMI Follow Up Plan 2010 Diabetic Foot Exam 2010 Pap Smear 2013 Influenza Vaccine 12/21/2024 02/28/2022 Adult BMI Screening 07/28/2025 07/28/2024 Tobacco Screening 11/19/2025 11/19/2024 DTaP,Tdap and Td Vaccines (3 - Td or Tdap) 03/26/2032 03/26/2022, 03/28/2021 Medical Devices Not on file Insurance [employer]
--- OUTSIDE RECORDS SUMMARY | 2024-11-30 20:00 | XMS_ITS | Encounter Summary ---
Author Organization [facility] Address [address] [place] [address] Care Team Providers Care Fire Alarm Repairer Name Role Phone Unavailable Primary Care Provider Unavailabl e Encounter Details Date Type Department Care Team (Late Contact Info) Description 11/17/2024 Results Follow-Up FLORINDA MOLINA [address] [place] [address] Floridalma Thomas, [place] [address] [place], [place] [phone] Social History Tobacco Use Types Packs/Day Years [...] 8:30 AM EDT Routine FLORINDA MOLINA [address] [facility] [place] [address] Gabriel Mendez DO [address] [facility] [place] [address] 12/14/2024 5:00 PM EDT Routine FLORINDA NATARAJANGYIta [address] [place] [address] Floridalma Thomas, CNBrit [address] [place] [address] documented as of this encounter [...]
--- OUTSIDE RECORDS SUMMARY | 2024-11-30 20:00 | XMS_ITS | Encounter Summary ---
Author Organization MeriTaleem tem Address [id number] [address] [place] [address] Care Team Providers Care Director Inbound Sales Name Role Phone Unavailable Primary Care Provider Unavailabl e Reason for Referral * Diagnostic Imaging (Routine) - Pending Review Specialty Diagnoses / Procedures Referred By Contsilverio t Referred To Contact Maternal and Medicine Diagnoses Type 1 diabetes mellitus in , first trimester Procedures US [facility] with or without consult Laurence Lunsford APRN-CNP [address] [place] [address] Phone: tel: fax: Maternal- Medicine at [address] [address] Phone: tel: fax: Referral ID Status Reason Start Date Expiration Date V isits Requested Visits Authorized [id number] Pending Review 06/18/2024 06/18/2025 1 1 Encounter Details Date Type Department Care Team (Late st Contact Info) Description 06/18/2024 Orders Only Maternal- Medicine at [place] [address] [place] [address] Mahnaz Lopez, SUPERINTENDENT MAINTENANCE Type 1 diabetes mellitus in , first [...] Description 12/02/2024 9:00 AM EDT Office Visit [facility] [address] [facility] [address] [place] [address] Dolores Pride MD [address] [facility] [address] [place] [address] 12/14/2024 8:00 AM EDT Telemedicine Maternal- Medicine at [facility] [address] [place] [address] Chad Gregg MD [address] [facility], [address]LO[address] [place], [place] [address] documented as of this encounter Results * [facility] COMPREHENSIVE ANATOMIC SURVEY (08/24/2024 9:37 AM EDT) Anatomical Region Laterality Modality OB-SUPERVISOR SAWING AND ASSEMBLY Ultrasound 08/24/2024 8:13 AM EDT Narrative 08/24/2024 10:55 AM EDT NAME: SERENA BEYER : 1990 SEX: F Accession Number: [id number] ORDERING PHYSICIAN: LAURENCE LUNSFORD REFERRING PHYSICIAN: GOLDEN YANG Coding ----- --------- Procedures 10069: Ultrasound, uterus, real time with image documentation, and maternal evaluation plus detailed anatomic examination, transabdominal approach;single or first gestation 16588: Transvaginal Ultrasound (OB) 34205: Echocardiography, , cardiovascular system, real time with image documentation (2D), with or without M-mode recording Indication ----- --------- Screening for Anatomic Survey, Screening for cervical length, Screening for congenital cardiac abnormality, Pre-existing Type 1 diabetes in , History of prior with delivery, Previous , Obesity in History ----- --------- OB History 3. Para 2 [id number] Maternal Assessment ----- --------- Physical Exam Height [...] EFW (oz) 12 oz EFW by: Hadlock ([id number]) Extended Tibia 25.9 mm 19w 2d 46% Sunny Smasher 8.2 mm CM 5.3 mm 64% Nicolaides [...] Profile. Nose. Nasal bone. Heart / Thorax 2-uvwwwv-chspdag view. Great vessels. Abdomen Right renal artery. Left renal artery. Extremities / Left hand. Right foot. Left foot. Skeleton Head / Neck other: Cavum Vergae Echocardiogram ----- --------- Situs situs solitus (normal) Cardiac position normal Cardiac axis normal Cardiac size normal (approx. 1/3 of thoracic area) Cardiac rhythm regular (normal) 4-chamber view suboptimal LVOT view suboptimal RVOT view normal 3-vessel view suboptimal 5-vxqedi-dlkxgzb view not examined Aortic arch view suboptimal [...] BEYER : 1990 SEX: F Accession Number: [id number] ORDERING PHYSICIAN: LAURENCE LUNSFORD REFERRING PHYSICIAN: GOLDEN YANG Coding ----- --------- Procedures 73089: Ultrasound, uterus, real time with imagedocumentation, and maternal evaluation plus detailed anatomic examination, transabdominalapproach;single or first gestation 75295: Transvaginal Ultrasound (OB) 92513: Echocardiography, , cardiovascular system, real timewith image documentation (2D), with or without M-mode recording Indication ----- --------- Screening for Anatomic Survey, Screening for cervical length, Screeningfor congenital cardiac abnormality, Pre-existing Type 1 diabetes in , History of prior with delivery,Previous , Obesity in History ----- --------- OB History 3. Para 2 [id number] Maternal Assessment ----- --------- Physical Exam Height [...] EFW (oz) 12 oz EFW by: Hadlock ([id number]) Extended Tibia 25.9 mm 19w 2d 46% Sunny Smasher 8.2 mm CM 5.3 mm 64% Nicolaides [...] Profile. Nose. Nasal bone. Heart / Thorax 6-pjnkkd-haejixw view. Great vessels. Abdomen Right renal artery. Left renal artery. Extremities / Left hand. Right foot. Left foot. Skeleton Head / Neck other: Cavum Vergae Echocardiogram ----- --------- Situs situs solitus (normal) Cardiac position normal Cardiac axis normal Cardiac size normal (approx. 1/3 of thoracic area) Cardiac rhythm regular (normal) 4-chamber view suboptimal LVOT view suboptimal RVOT view normal 3-vessel view suboptimal 3-jcmiez-jywdxsn view not examined Aortic arch view suboptimal [...] up with thepatient as necessary. Laurence Lunsford APRN-[facility] US ORDERABLES Final Result documented in this encounter Visit Diagnoses Diagnosis Type 1 diabetes mellitus in , first trimester- Primary Type 1 diabetes mellitus in , first trimester documented in this encounter
--- OUTSIDE RECORDS SUMMARY | 2024-11-30 20:00 | XMS_ITS | Encounter Summary ---
Author Organization [facility] Address [address] [place] [address] Care Team Providers Care Communication Equipment Repairer Name Role Phone Unavailable Primary Care Provider Unavailabl e Encounter Details Date Type Department Care Team (Late st Contact Info) Description 06/24/2024 Telephone [facility] [address] [place] [address] Floridalma Thomas CN [address] [place], [place] [address] Social History Tobacco Use Types Packs/Day Years [...] just give me a call back at [phone].Thank you. documented in this encounter Plan of Treatment Upcoming Encounters Date Type Department Care Team (Late st Contact Info) Description 12/10/2024 8:30 AM EDT Routine NOMOdilon LUNDYN [address] [facility] [place] [address] Gabriel Mendez DO [address] [facility] [place] [address] 12/14/2024 5:00 PM EDT Routine NOMS Mariann MOLINA [address] [place] [address] Floridalma Thomas CNM [address] [place], [place] [phone] documented as of this encounter Visit Diagnoses Not on filedocumented in this encounter
--- OUTSIDE RECORDS SUMMARY | 2024-11-30 20:00 | XMS_ITS | Encounter Summary ---
Author Organization [facility] Address [address] [place] [address] Care Team Providers Care Director Of Labor Relations Name Role Phone Unavailable Primary Care Provider Unavailabl e Encounter Details Date Type Department Care Team (Late Contact Info) Description 11/16/2024 Bamboo flowsheet [facility] [address] [place] [address] Floridalma Thomas, CN [address] [place], [place] [phone] Social History Tobacco Use Types Packs/Day Years [...] AM EDT Routine NOMS Freeman MOLINA [address] [place] [address] Gabriel Mendez DO [address] [facility] [place] [address] 12/14/2024 5:00 PM EDT Routine [facility] [address] [place] [address] Floridalma Thomas, CNM [address] [place] [address] documented as of this encounter [...]
--- OUTSIDE RECORDS SUMMARY | 2024-11-30 20:00 | XMS_ITS | Encounter Summary ---
Author Organization [facility] Address [address] [place] [address] Care Team Providers Care Liquid Sugar Melter Name Role Phone Unavailable Primary Care Provider Unavailabl e Reason for Visit * Reason Comments Medication Refill Encounter Details Date Type Department Care Team (Late st Contact Info) Description 05/16/2021 Refill [facility] [address] [facility] [address] [place], [place] [phone] Steafny Tariq MD [address] [place] [address] Medication Refill Social History Tobacco Use Types [...]
--- OUTSIDE RECORDS SUMMARY | 2024-11-30 20:00 | XMS_ITS | Encounter Summary ---
Author Organization [facility] tem Address [id number] [address] [place] [address] Care Team Providers Care Change Number Operator Name Role Phone Unavailable Primary Care Provider Unavailabl e Encounter Details Date Type Department Care Team (Late Contact Info) Description 06/05/2024 Orders Only Maternal- Medicine at [facility] [address] [place] [id number] Ref Prov, [place] [address] Social History Tobacco Use Types Packs/Day Years [...] 9:00 AM EDT Office Visit [facility] [address] [place] [address] Dolores Pride MD [address] [place] [address] 12/14/2024 8:00 AM EDT Telemedicine Maternal- Medicine at [facility] [address] [place] [id number] Chad Gregg MD [address] [place] [address] documented as of this encounter Visit Diagnoses Not on filedocumented in this encounter
--- OUTSIDE RECORDS SUMMARY | 2024-11-30 20:00 | XMS_ITS | Clinical Summary ---
Author Organization [facility] Address [address], [address] [place] [address] Care Team Providers Care Healthcare Administrative Assistant Name Role Phone Unavailable Primary Care Provider Unavailabl e Allergies No known active allergies Medications Continuous Blood Gluc [employer] Professor (FREESTYLE ILIANA 2 READER SYSTM) DEVIIndications:Un controlled [...] Description 10/14/2024 Transcribe Orders [facility] [address] [place], [place] [id number] Floridalma Thomas APRN - CNM Amniotic fluid [...] Ur <1.20 <2.0 mg/dL 05/11/2020 4:06 PM [facility] Creatinine, Ur 111.9 28.0 - 259.0 mg/dL 05/11/2020 4:06 PM [facility] Albumin/Creatinin e Ratio see below 0.0 - 30.0 mg/g 05/11/2020 4:06 PM [facility] Comment: Ratio cannot be calculated since microalbumin level is below the lower detection limit. URINE SPECIMEN / Unknown 05/11/2020 8:21 AM EST 05/11/2020 3:11 PM EST Narrative [facility] - 05/11/2020 4:26 PM EST Performed at: [facility] [address] [place] [address] us Stefany Tariq MD URINE ORDERABLES Final Result Performing Organization Address City/[facility]/ZIP Co de Phone Number [facility] [address] [place] [address] * (ABNORMAL) Lipid Panel (05/11/2020 8:11 AM EST) Cholesterol, Total 198 0 - 199 mg/dL 05/11/2020 3:45 PM EST [facility] Triglycerides 100 0 - 150 mg/dL 05/11/19 3:45 PM EST [facility] HDL 95(H) 40 - 60 mg/dL 05/11/2020 3:45 PM EST [facility] LDL Calculated 83 <100 mg/dL 05/11/2020 3:45 PM EST [facility] VLDL Cholesterol Calculated 20 Not Established mg/dL 05/11/2020 3:45 PM EST [facility] BLOOD SPECIMEN / Unknown 05/11/2020 8:11 AM EST 05/11/2020 3:11 PM EST Narrative [facility] - 05/11/2020 4:12 PM EST Performed at: [facility] [address] [place] [address] us Stefany Tariq MD CHEMISTRY ORDERABLES Final Resu lt Performing Organization Address City/[facility]/ZIP Co de Phone Number [facility] [address] [place] [address] * Comprehensive Metabolic Panel (05/11/2020 8:11 AM EST) Sodium 140 136 - 145 mmol/L 05/11/2020 3:45 PM [facility] Potassium 4.6 3.5 - 5.1 mmol/L 05/11/2020 3:45 PM [facility] Chloride 101 99 - 110 mmol/L 05/11/2020 3:45 PM [facility] CO2 27 21 - 32 mmol/L 05/11/2020 3:45 PM [facility] Anion Gap 12 3 - 16 05/11/2020 3:45 PM [facility] Glucose 97 70 - 99 mg/dL 05/11/2020 3:45 PM [facility] BUN 11 7 - 20 mg/dL 05/11/2020 3:45 PM [facility] Creatinine 0.6 0.6 - 1.1 mg/dL 05/11/2020 3:45 PM [facility] GFR Non- >60 >60 05/11/2020 3:45 PM [facility] Comment: >60 mL/min/1.73m2 EGFR, calc. for ages 18 and older using the MDRD formula (not corrected for weight), is valid for stable renal function. GFR >60 >60 05/11/2020 3:45 PM [facility] Comment: Chronic Kidney Disease: less than 60 ml/min/1.73 sq.m. Kidney Failure: less than 15 ml/min/1.73 sq.m. Results valid for patients 18 years and older. Calcium 9.7 8.3 - 10.6 mg/dL 05/11/2020 3:45 PM [facility] Total Protein 6.7 6.4 - 8.2 g/dL 05/11/2020 3:45 PM [facility] Albumin 4.1 3.4 - 5.0 g/dL 05/11/2020 3:45 PM [facility] Albumin/Globulin Ratio 1.6 1.1 - 2.2 05/11/2020 3:45 PM [facility] Total Bilirubin 0.4 0.0 - 1.0 mg/dL 05/11/2020 3:45 PM EST [facility] Alkaline Phosphatase 69 40 - 129 U/L 05/11/2020 3:45 PM EST [facility] ALT 20 10 - 40 U/L 05/11/2020 3:45 PM EST [facility] AST 24 15 - 37 U/L 05/11/2020 3:45 PM EST [facility] Globulin 2.6 g/dL 05/11/2020 3:45 PM EST [facility] BLOOD SPECIMEN / Unknown 05/11/2020 8:11 AM EST 05/11/2020 3:11 PM EST [facility] - 05/11/2020 4:26 PM EST Performed at: [facility] [address] [place] [address] us Stefany Tariq MD CHEMISTRY ORDERABLES Final Resu lt [facility] [address] [place] [address] * PAP SMEAR (06/13/2018 9:00 AM EST) 06/13/2018 9:00 AM EST 06/16/2018 7:42 AM EST [facility] - 06/18/2018 3:46 [place] [address] . [phone] Department of Pathology FINAL CYTOLOGY PAP REPORT Patient Name: ALYSE PATEL Accession No: [id number] Age Sex: 1990 27 Y / F Location: [facility] Account No: [id number] Collected: 06/13/2018 Med Rec No: [id number] Received: 06/16/2018 Attend Phys: HAZEL RAMOS MD Completed: 06/18/2018 Perform Phys: HAZEL RAMOS MD GENERAL CATEGORIZATION: Negative for Intraepithelial Lesion or Malignancy SPECIMEN ADEQUACY: Satisfactory for Evaluation. Endocervical cells/transformation zone component present. Specimen: THINPREP LIQUID BASE IMAGED DIAGNOSTIC, CERVICAL ENDOCERVICAL History: No Prior Abnormal Smear: No CPT: Technical: 91090 X1 Case signed out at [facility], [address] [place] [address] Specimen was processed and screened at [facility], [address] [place] [address] Our Cytology Laboratory uses the ThinPrep Plasma Processing Centrifuge Operator to automatically screen all ThinPrep Pap smears. The ThinPrep Plasma Processing Centrifuge Operator is approved by the FDA for this purpose, and enables our laboratory to apply a single quality systems engineer standard on these Pap smears. Upon initial screening of cases, this instrument identifies cases requiring additional manual review or additional quality systems engineer rescreening. Cervical cytology is a screening test [...] Vang MD PATHOLOGY/CYTOLOGY ORDERA BLES Final Result [facility] [address] [place] [address], [facility] [phone] * Hepatitis C Antibody (06/07/2017 9:16 AM EST) Hep C Ab Interp Non-reacti ve Non-reacti ve 06/07/2017 9:07 PM EST [facility] 06/07/2017 9:16 AM EST 06/07/2017 4:46 PM EST Hazel Vang MD IMMUNOLOGY ORDERABLES Fin al Result [facility] * HIV Screen (06/07/2017 9:16 AM EST) [...] Recently Relevant to Health Maintenance Insurance [address] [place] [address] [employer] Advance Directives * Full Code (Latest Code Status on File) Date Activated Date Inactivated Comments 08/20/2016 6:44 PM 08/23/2016 2:21 PM * Full Code Date Activated Date Inactivated Comments 08/20/2016 5:42 PM 08/20/2016 6:44 PM
--- OUTSIDE RECORDS SUMMARY | 2024-11-30 20:00 | XMS_ITS | Encounter Summary ---
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 Name Role Phone Unavailable Primary Care Provider Unavailabl e Encounter Details Date Type Department Care Team (Late st Contact Info) Description 02/03/2020 Orders Only [address] [place] [address] Uncontrolled type 1 diabetes mellitus [...] <1.20 <2.0 mg/dL 02/03/2020 1:00 PM EDT [facility] Creatinine, Ur 259.3(H) 28.0 - 259.0 mg/dL 02/03/2020 1:00 PM EDT [facility] Albumin/Creatinin e Ratio see below 0.0 - 30.0 mg/g 02/03/2020 1:00 PM EDT [facility] Comment: Ratio cannot be calculated since microalbumin level is below the lower detection limit. URINE SPECIMEN / Unknown 02/03/2020 8:48 AM EDT 02/03/2020 11:18 AM EDT Narrative [facility] - 02/03/2020 1:13 PM EDT Performed at: [facility] [address] [place] [address] us Stefany Tariq MD URINE ORDERABLES Final Result [facility] [address] [place] [address], [facility] [phone] * (ABNORMAL) Comprehensive Metabolic Panel (02/03/2020 8:38 AM EDT) Sodium 142 136 - 145 mmol/L 02/03/2020 12:40 PM EDT [facility] Potassium 4.1 3.5 - 5.1 mmol/L 02/03/2020 12:40 PM EDT [facility] Chloride 106 99 - 110 mmol/L 02/03/2020 12:40 PM [facility] CO2 23 21 - 32 mmol/L 02/03/2020 12:40 PM [facility] Anion Gap 13 3 - 16 02/03/2020 12:40 PM [facility] Glucose 62(L) 70 - 99 mg/dL 02/03/2020 12:40 PM [facility] BUN 8 7 - 20 mg/dL 02/03/2020 12:40 PM [facility] Creatinine 0.6 0.6 - 1.1 mg/dL 02/03/2020 12:40 PM [facility] GFR Non- >60 >60 02/03/2020 12:40 PM [facility] Comment: >60 mL/min/1.73m2 EGFR, calc. for ages 18 and older using the MDRD formula (not corrected for weight), is valid for stable renal function. GFR >60 >60 02/03/2020 12:40 PM [facility] Comment: Chronic Kidney Disease: less than 60 ml/min/1.73 sq.m. Kidney Failure: less than 15 ml/min/1.73 sq.m. Results valid for patients 18 years and older. Calcium 9.2 8.3 - 10.6 mg/dL 02/03/2020 12:40 PM [facility] Total Protein 6.6 6.4 - 8.2 g/dL 02/03/2020 12:40 PM [facility] Albumin 4.1 3.4 - 5.0 g/dL 02/03/2020 12:40 PM [facility] Albumin/Globulin Ratio 1.6 1.1 - 2.2 02/03/2020 12:40 PM [facility] Total Bilirubin 0.3 0.0 - 1.0 mg/dL 02/03/2020 12:40 PM [facility] Alkaline Phosphatase 65 40 - 129 U/L 02/03/2020 12:40 PM [facility] ALT 15 10 - 40 U/L 02/03/2020 12:40 PM [facility] AST 24 15 - 37 U/L 02/03/2020 12:40 PM EDT [facility] Globulin 2.5 g/dL 02/03/2020 12:40 PM EDT [facility] BLOOD SPECIMEN / Unknown 02/03/2020 8:38 AM EDT 02/03/2020 11:17 AM EDT [facility] - 02/03/2020 1:09 PM EDT Performed at: [facility] [address] [place] [address] us Stefany Tariq MD CHEMISTRY ORDERABLES Final Resu lt [facility] [address] [place] [address] * Hemoglobin A1C (02/03/2020 8:38 AM EDT) Hemoglobin A1C 7.9 See comment % 02/03/2020 1:21 PM EDT [facility] Comment: Comment: Diagnosis of Diabetes: > or = 6.5% Increased risk of diabetes (Prediabetes): 5.7-6.4% Glycemic Control: Non Adults: <7.0% : <6.0% Estimated Avg Glucose 180.0 mg/dL 02/03/2020 1:21 PM EDT [facility] BLOOD SPECIMEN / Unknown 02/03/2020 8:38 AM EDT 02/03/2020 11:17 AM EDT [facility] - 02/03/2020 1:21 PM EDT Performed at: [facility] [address] [place] [address] us Stefany Tariq MD CHEMISTRY ORDERABLES Final Resu lt Performing Organization Address City/[facility]/ZIP Co de Phone Number [facility] [address] [place] [address] * (ABNORMAL) Lipid Panel (02/03/2020 8:38 AM EDT) Cholesterol, Total 213(H) 0 - 199 mg/dL 02/03/2020 12:40 PM EDT [facility] Triglycerides 73 0 - 150 mg/dL 02/03/20 20 12:40 PM EDT [facility] HDL 97(H) 40 - 60 mg/dL 02/03/2020 12:40 PM EDT [facility] LDL Calculated 101(H) <100 mg/dL 02/03/2020 12:40 PM EDT [facility] VLDL Cholesterol Calculated 15 Not Established mg/dL 02/03/2020 12:40 PM EDT [facility] BLOOD SPECIMEN / Unknown 02/03/2020 8:38 AM EDT 02/03/2020 11:17 AM EDT Narrative [facility] - 02/03/2020 1:09 PM EDT Performed at: [facility] [address], [place] [address] us Stefany Tariq MD CHEMISTRY ORDERABLES Final Resu lt [facility] [address] [place] [address], [facility] [phone] documented in this encounter Visit Diagnoses Diagnosis Uncontrolled type 1 diabetes mellitus with hyperglycemia (HCC) Hypercholesterolemia Pure hypercholesterolemia documented in this encounter
--- OUTSIDE RECORDS SUMMARY | 2024-11-30 20:00 | XMS_ITS | Clinical Summary ---
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 Name Role Phone Unavailable Primary Care Provider Unavailabl e Allergies No known active allergies Medications insulin lispro (HumaLOG Gregorio KwikPen) 100 UNIT/ML pen INJECT UP TO 50 UNITS PER DAY Active IZ-Veu-QU-[place] -3 ( Gummies/DHA & FA) 0.4-32.5 MG [...] pen 10 units 5 Active ReliOn Pen [place] 32G X 4 MM misc USE 5-6 TIMES DAILY WITH INSULIN 5 Active Encounters Date Type Department Care Team Description 11/26/2024 8:30 AM EDT Routine [facility] [address] [facility] [address] Gabriel Mendez DO 33 weeks gestation of ([facility]); Type 1 diabetes mellitus without complication ([facility]) 11/26/2024 Results [facility] [address] [place] [address] Golden Thomas CNM 11/26/2024 Results Follow-Up [facility] [address] [facility] [place] [address] Martha Golden L, CNM 11/26/2024 Clinisync Result Encounter NOMS External Department Unsolicited Rivka Thomaserie L, CNM 11/26/2024 Clinisync Result Encounter NOMS External Department Unsolicited JunieoOraliae L, CNM 11/26/2024 Bamboo flowsheet [facility] [address] [place] [address] [place] [address] Gabriel Mendez DO 11/25/2024 Travel 11/23/2024 Results Follow-Up [facility] [address] [facility] [place] [address] Martha Golden L, CNM 11/20/2024 Clinisync Result Encounter NOMS External Department Unsolicited Golden Thomas L, CNM 11/17/2024 Results [facility] [address] [facility] [place] [address] Martha Golden L, CNM 11/16/2024 4:00 PM EDT Routine [facility] [address] [facility] [place] [address] Rivka Thomaserie L, CNM Third trimester ([facility]) (Primary Dx); Type 1 diabetes mellitus without complication (HCC); Insulin controlled gestational diabetes mellitus (GDM) in second trimester ([facility]); Encounter for supervision of other normal , third trimester ([facility]); Screening for iron deficiency anemia 11/16/2024 Bamboo flowsheet [facility] [address] [facility] [place] [address] Golden Thomas L, CNM 11/09/2024 3:50 PM EDT Routine [facility] [address] [facility] [place] [address] Gabriel Mendez DO Third trimester ([facility]); 31 weeks gestation of ([facility]) 11/09/2024 Bamboo flowsheet [facility] [address] [place] [address] [place] [address] Gabriel Mendez DO 11/09/2024 Travel 11/02/2024 4:30 PM EDT Ancillary Procedure [facility] [address] [place] [address] related condition in third trimester ([facility]) 11/02/2024 Travel 10/26/2024 Travel 10/21/2024 Orders Only [facility] [address] [facility] [place] [address] Golden Thomas CNM related condition in third trimester ([facility]) 10/14/2024 8:30 AM EDT Routine [facility] [address] [facility] [place] [address] Golden Thomas CNM Type 1 diabetes mellitus without complication (HCC) (Primary Dx); related condition in third trimester ([facility]); Amniotic fluid leaking ([facility]); Encounter for supervision of other normal , second trimester ([facility]) 10/14/2024 Bamboo flowsheet [facility] [address] [facility] [place] [address] Golden Thomas CNM 10/13/2024 Travel 09/16/2024 8:30 AM EDT Routine [facility] [address] [facility] [place] [address] Golden Thomas CNM Insulin controlled gestational diabetes mellitus (GDM) in second trimester ([facility]) (Primary Dx); Encounter for supervision of other normal , second trimester ([facility]); Type 1 diabetes mellitus without complication (HCC) 09/16/2024 Bamboo flowsheet [facility] [address] [facility] [place] [address] Golden Thomas CNM 09/09/2024 Travel from Last [...] oz) 11/26/2024 8:48 A M EDT Height 160 cm (5' 3 ) 05/27/2024 8:49 AM EST Body Mass Index 32.97 05/27/2024 8:49 AM EST Plan of Treatment Upcoming Encounters Date Type Department Care Team (Late st Contact Info) Description 12/10/2024 8:30 AM EDT Routine [facility] [address] [facility] [address] Gabriel Mendez DO [address] [facility] [address] [place] [address] 12/14/2024 5:00 PM EDT Routine [facility] [address] [place] [address] Golden Thomas CNM [address] [place] [address] Goals Goal Patient Goal Type Associated Problems Recent Progress Patient-Stated? Author Reminders Care Plan OB Reminders No Open Scheduling, Background Procedures Procedure Name Priority Date/Time Associated Diagnosis Comments US OB GROWTH 11/26/2024 1:25 PM EDT US OB BPP W NON-STRESS 11/26/2024 1:23 PM EDT POCT URINALYSIS DIPSTICK Routine 11/26/2024 9:09 AM EDT 33 weeks gestation of ([facility]) US OB BPP W NON-STRESS 11/20/2024 10:16 AM EDT US OB FOLLOW UP TRANSABDOMINAL APPROACH Routine 11/02/2024 4:37 PM EDT related condition in third trimester ([facility]) from Last 3 Months Results * US OB GROWTH (11/26/2024 1:25 PM EDT) Anatomical Region Laterality Modality Other 11/26/2024 1:25 PM EDT Narrative 11/26/2024 1:28 [place] [address] Ultrasound Report Signed Patient: ALYSE MUNGUIA MR#: [id number] : 1990 Acct:[id number] Age/Sex: 34 / F ADM Date: 11/26/24 Loc: US Attending Dr: GOLDEN THOMAS APRN, CNM Ordering Physician: GOLDEN THOMAS APRN, CNM Date of Service: 11/26/24 Procedure(s): US OB growth Accession Number(s): [id number] cc: GOLDEN THOMAS APRN, CNM; Physician,Non-Staff M.D. The [place] [id number] Patient Name: ALYSE MUNGUIA MRN: [id number] date: 1990 Sex: F Assigned Patient Location: [facility] Current Patient Location: Accession/Order Number: [id number] Exam Date: 11/26/2024 13:23 Report Date: 11/26/2024 [...] Jr., D.O. 11/26/2024 1:25 PM Dictation Location: [place] [address] Electronically authenticated by: [id number] Y Date: 11/26/2024 13:25 Dictated By: Luc Echeverria M.D. Signed By: 11/26/24 1328 DD/ 24 TD/TT: Paper Bag Machine Operator: Procedure Note Radiology, Radiologist, MD - 11/26/2024 [place] [address] Ultrasound Report Signed Patient: MOLLY MUNGUIA#: [id number] : 1990Acct:[id number] Age/Sex: 34 / FADM Date: 11/26/24 Loc: US Attending Dr: GOLDEN THOMAS APRN, CNM Ordering Physician: GOLDEN THOMAS APRN, CNM Date of Service: 11/26/24 Procedure(s): US OB growth Accession Number(s): [id number] cc: GOLDEN THOMAS APRN, CNM; Physician,Non-Staff M.DTony The [place] [id number] Patient Name: ALYSE MUNGUIA MRN: [facility]:[id number] date: 1990 Sex: F Assigned Patient Location: [facility] Current Patient Location: Accession/Order Number: [id number] Exam Date: 11/26/2024 13:23 Report Date: 11/26/2024 [...] Jr., D.O. 11/26/2024 1:25 PM Dictation Location: [place] [address] Electronically authenticated by: [id number] Y Date: 3:25 Dictated By: Luc Echeverria M.D. Signed By:11/26/24 1328 DD/ 24 TD/TT: Paper Bag Machine Operator: us Golden Thomas CNM [facility] Final Resu lt * US OB BPP W NON-STRESS (11/26/2024 1:23 PM EDT) Only the most recent of2 resultswithin the time period is included. Anatomical Region Laterality Modality Other 11/26/2024 1:23 PM EDT Narrative 11/26/2024 1:26 [place] [address] Ultrasound Report Signed Patient: ALYSE MUNGUIA MR#: [id number] : 1990 Acct:[id number] Age/Sex: 34 / F ADM Date: 11/26/24 Loc: US Attending Dr: GOLDEN THOMAS APRN, CNM Ordering Physician: GOLDEN THOMAS APRN, CNM Date of Service: 11/26/24 Procedure(s): US OB BPP w non-stress Accession Number(s): [id number] cc: GOLDEN THOMAS APRN, CNM; Physician,Non-Staff MGraciela The [address] [address] Patient Name: ALYSE MUNGUIA MRN: [id number] date: 1990 Sex: F Assigned Patient Location: US Current Patient Location: Accession/Order Number: [id number] Exam Date: 11/26/2024 13:22 Report Date: 11/26/2024 13:23 At the request of: GOLDEN THOMAS APRN, CNM Procedure: US OB BPP w non-stress Biophysical profile. Reason for exam: Type 1 diabetes COMPARISON: 11/19/2024 TECHNIQUE: Transabdominal imaging of the gravid uterus was obtained. FINDINGS: The cardiac sonographer reports a BPP of 8 out of 8. MASON is normal at 12.6 cm. heart rate 126 bpm. US/US OB BPP w non-stress IMPRESSION: BPP 8 out of 8. Impression dictated by: Luc Echeverria Jr., D.O. 11/26/2024 1:23 PM Dictation Location: [place] [address] Electronically authenticated by: [id number] Y Date: 11/26/2024 13:23 Dictated By: Luc Echeverria M.D. Signed By: 11/26/24 1326 DD/ 1323 TD/TT: Paper Bag Machine Operator: Procedure Note Radiology, Radiologist, MD - 11/26/2024 [place] [address] Ultrasound Report Signed Patient: MOLLY MUNGUIA#: [id number] : 1990Acct:[id number] Age/Sex: 34 / FADM Date: 11/26/24 Loc: US Attending Dr: GOLDEN THOMAS APRN, CNM Ordering Physician: GOLDEN THOMAS APRN, CNM Date of Service: 11/26/24 Procedure(s): US OB BPP w non-stress Accession Number(s): [id number] cc: GOLDEN THOMAS APRN, CNM; Physician,Non-Staff MGraciela The [address] [address] Patient Name: ALYSE MUNGUIA MRN: [id number] date: 1990 Sex: F Assigned Patient Location: US Current Patient Location: Accession/Order Number: [id number] Exam Date: 11/26/2024 13:22 Report Date: 11/26/2024 13:23 At the request of: GOLDEN THOMAS APRN, CNM Procedure: US OB BPP w non-stress Biophysical profile. Reason for exam: Type 1 diabetes COMPARISON: 11/19/2024 TECHNIQUE: Transabdominal imaging of the gravid uterus was obtained. FINDINGS: The cardiac sonographer reports a BPP of 8 out of 8. MASON is normal at12.6 cm. heart rate 126 bpm. US/US OB BPP w non-stress IMPRESSION: BPP 8 out of 8. Impression dictated by: Luc Echeverria Jr. DSarath 11/26/2024 1:23 PM Dictation Location: [place] [address] Electronically authenticated by: [id number] Y Date: 3:23 Dictated By: Luc Echeverria M.D. Signed By:11/26/24 1326 DD/ 1323 TD/TT: Paper Bag Machine Operator: Golden Tohmas CNM [facility] Final Resu lt * (ABNORMAL) POCT urinalysis dipstick manually resulted [...] CARE TEST ENTER/EDIT OR DERABLES Final Result * US OB follow up transabdominal approach [...]
[2024-11-30 20:20] VITALS: BP 136/74; PULSE 86
[2024-11-30 20:30] VITALS: BP 126/78; PULSE 81
== END 2024-11-30 20:33 | disposition home or self-care (01) ==
LOC: FBCO 19:58 → FBC 20:02
PROVIDERS: Visit Provider Midwife
DX: O24.313 Unspecified pre-existing diabetes mellitus in pregnancy, third trimester (principal); Z3A.33 33 weeks gestation of pregnancy
CPT/HCPCS: 59025

== ENCOUNTER 2024-12-04 18:53 | Outpatient (OUT) | payer OTHER, SELFPAY ==
--- NOTE | 2024-12-04 18:56 | US_ITS ---
[place] [address] Patient Name: PEPITO LYONS MRN: [facility]:[id number] date: 1990 Sex: F Assigned Patient Location: [facility] Current Patient Location: Accession/Order Number: [id number] Exam Date: 12/04/2024 21:48 Report Date: 12/04/2024 21:49 At the request of: GOLDEN YANG APRN, CNM Procedure: US OB BPP w non-stress Ultrasound biophysical profile HISTORY: Type 1 diabetes Adequate breathing movement, gross body movement, tone and amniotic fluid volume for total score of 8 out of 8. The amniotic fluid index is 12.2cm within normal limits. The heart rate 157 bpm. US/US OB BPP w non-stress IMPRESSION: Adequate ultrasound biophysical profile Impression dictated by: Gerard Vo M.D. 12/04/2024 9:49 PM Dictation Location: [place] [address] Electronically authenticated by: [id number] Y Date: 12/04/2024 21:49
[2024-12-04 19:24] VITALS: BP 116/67; PULSE 86
== END 2024-12-04 19:50 | disposition home or self-care (01) ==
LOC: US 18:53 → FBC 18:54
PROVIDERS: Visit Provider Midwife
DX: O24.919 Unspecified diabetes mellitus in pregnancy, unspecified trimester (principal)
CPT/HCPCS: 59025; 76818

== ENCOUNTER 2024-12-07 20:01 | Outpatient (OUT) | payer OTHER, SELFPAY ==
[2024-12-07 20:13] VITALS: TEMP 36.4
[2024-12-07 20:15] VITALS: BP 114/64; PULSE 80
== END 2024-12-07 20:45 | disposition home or self-care (01) ==
LOC: FBCO 20:01 → FBC 20:08
PROVIDERS: Visit Provider Midwife
DX: O24.313 Unspecified pre-existing diabetes mellitus in pregnancy, third trimester (principal); Z3A.34 34 weeks gestation of pregnancy
CPT/HCPCS: 59025

== ENCOUNTER 2024-12-10 07:01 | Outpatient (OUT) | payer OTHER, SELFPAY ==
--- OUTSIDE RECORDS SUMMARY | 2024-11-26 08:30 | XMS_ITS | Encounter Summary ---
Author Organization [facility] Address [address] [place] [address] Care Team Providers Care Flake Or Shred Roll Operator Name Role Phone Unavailable Primary Care Provider Unavailabl e Reason for Visit * Reason Comments Routine Visit Encounter Details Date Type Department Care Team (Latest Contact Info) Description 11/26/2024 8:30 AM EDT Routine [facility] [address] [place] [phone] Gabriel Mendez DO [address] [facility] [place] [address] 33 weeks gestation of ([facility]); Type 1 diabetes mellitus without complication ([facility]) Social History Tobacco Use Types [...] Lantus SoloStar 100 UNIT/ML pen 10 units RP-Nob-NS-[place]-3 ( Gummies/DHA & FA) 0.4-32.5 MG chewable tablet Oral ReliOn Pen [place] 32G X 4 MM misc USE 5-6 [...] nursing note reviewed. Exam conducted with a quality tester present. Vitals: Estimated body mass index is 32.97 kg/m?? as calculated from the following: Height as of 05/27/24: 5' 3 . Weight as of this encounter: 186 lb 1.9 oz. BP: 116/74 Patient's last menstrual period was 04/03/2024 (exact date). ASSESSMENT & PLAN ICD-10-CM 1. 33 weeks gestation of ([facility]) Z3A.33 POCT urinalysis dipstick manually resulted 2. Type 1 diabetes mellitus without complication (HCC) E10.9 Patient presents today for a routine obstetrics appointment. Patient is currently 33w0d with a Estimated Date of Delivery: 01/14/25. Patient was previously seen in office to discuss upcoming . Discussed management of delivery with Type I diabetes. Patient voiced that she was contacted by [facility] to setup follow up appointment. Informed [...] to scheduled . Patient voiced that her Aircraft Stress Analyst is connected to her pump and able to see her sugar results, specialist reaches out weekly if/not televisit every 2 weeks. Documented by Marielos Mccain LPN on behalf of: Gabriel Mendez DO documented in this encounter Plan of Treatment Upcoming Encounters Date Type Department Care Team (Late st Contact Info) Description 12/10/2024 8:30 AM EDT Routine [facility] [address] [place] [phone] Gabriel Mendez DO [address] [facility] [place] [address] documented as of this encounter Goals Goal Patient Goal Type Associated Problems Recent Progress Patient-Stated? Author Reminders Care Plan OB Reminders No Open Scheduling, Background documented as of this encounter Procedures Procedure Name Priority Date/Time Associated Diagnosis Comments POCT URINALYSIS DIPSTICK Routine 11/26/2024 9:09 AM EDT 33 weeks gestation of ([facility]) documented in this encounter Results * (ABNORMAL) POCT urinalysis dipstick manually resulted (11/26/2024 9:09 AM EDT) Color, UA Yellow Clarity, UA Clear Glucose, UA Negative Negative - 2000(110) ++++ mg/dL Bilirubin, UA Negative Negative - [...] Visit Diagnoses Diagnosis 33 weeks gestation of ([facility]) Type 1 diabetes mellitus without complication ([facility]) Type I (juvenile type) diabetes mellitus without mention of complication, not stated as uncontrolled documented in this encounter Additional Health Concerns Active Problems Noted Date Diagnosed Date OB Reminders 07/14/2024 documented as of this encounter
--- NOTE | 2024-12-10 | US_ITS ---
[place] [id number] Patient Name: PEPITO LYONS MRN: [id number] date: 1990 Sex: F Assigned Patient Location: US Current Patient Location: Accession/Order Number: [id number] Exam Date: 12/10/2024 12:42 Report Date: 12/10/2024 12:44 At the request of: GOLDEN YANG APRN, CNM Procedure: US OB BPP w non-stress Ultrasound biophysical profile HISTORY: Type 1 diabetes Adequate breathing movement, gross body movement, tone and amniotic fluid volume for total score of 8 out of 8. The amniotic fluid index is 15.3cm within normal limits. The heart rate 150 bpm. US/US OB BPP w non-stress IMPRESSION: Adequate ultrasound biophysical profile Impression dictated by: Gerard Vo M.D. 12/10/2024 12:44 PM Dictation Location: [place] [address] Electronically authenticated by: [id number] Y Date: 12/10/2024 12:44
--- OUTSIDE RECORDS SUMMARY | 2024-12-10 07:03 | XMS_ITS | Clinical Summary ---
Author Organization [facility] Address [address] [place] [address] Care Team Providers Care Plastic Tool Maker Name Role Phone Unavailable Primary Care Provider Unavailabl e Allergies No known active allergies Medications insulin lispro (HumaLOG Gregorio KwikPen) 100 UNIT/ML pen INJECT UP TO 50 UNITS PER DAY Active FW-Ljp-QU-[place] -3 ( Gummies/DHA & FA) 0.4-32.5 MG [...] pen 10 units 5 Active ReliOn Pen [place] 32G X 4 MM misc USE 5-6 TIMES DAILY WITH INSULIN 5 Active Encounters Date Type Department Care Team Description 12/09/2024 Travel 12/07/2024 [facility] [address] [place] [address] Golden Thomas CNM US OB BPP W NON-STRESS 12/04/2024 Clinisync Result Encounter NOMS External Department Unsolicited Golden Thomas CNM 11/26/2024 8:30 AM EDT Routine [facility] [address] [facility] [place] [address] Gabriel Mendez, DO 33 weeks gestation of ([facility]); Type 1 diabetes mellitus without complication (HCC) 11/26/2024 Results Follow-Up [facility] [address] [facility] [address] Golden Thomas, KAMALJIT US OB GROWTH 11/26/2024 Results Follow-Up [facility] [address] [place] [address] Golden Thomas, KAMALJIT US OB BPP W NON-STRESS 11/26/2024 Clinisync Result Encounter NOMS External Department Unsolicited Golden Thomas CNM 11/26/2024 Clinisync Result Encounter NOMS External Department Unsolicited Golden Thomas CNM 11/26/2024 Bamboo flowsheet [facility] [address] [place] [address] [place] [address] Gabriel Mendez DO 11/25/2024 Travel 11/23/2024 Results Follow-Up [facility] [address] [facility] [address] Golden Thomas CNM US OB BPP W NON-STRESS 11/20/2024 Clinisync Result Encounter NOMS External Department Unsolicited Golden Thomas CNM 11/17/2024 Results Follow-Up [facility] [address] [facility] [address] Golden Thomas CNM US OB follow up transabdominal approach 11/16/2024 4:00 PM EDT Routine [facility] [address] [facility] [address] Golden Thomas, KAMALJIT Third trimester ([facility]) (Primary Dx); Type 1 diabetes mellitus without complication (HCC); Insulin controlled gestational diabetes mellitus (GDM) in second trimester ([facility]); Encounter for supervision of other normal , third trimester ([facility]); Screening for iron deficiency anemia 11/16/2024 Bamboo flowsheet [facility] [address] [facility] [address] Golden Thomas CNM 11/09/2024 3:50 PM EDT Routine [facility] [address] [facility] [place] [address] Gabriel Mendez, Third trimester ([facility]); 31 weeks gestation of ([facility]) 11/09/2024 Bamboo flowsheet [facility] [address] [facility] [place] [address] Gabriel Mendez DO 11/09/2024 Travel 11/02/2024 4:30 PM EDT Ancillary Procedure [facility] [address] [place] [address] related condition in third trimester ([facility]) 11/02/2024 Travel 10/26/2024 Travel 10/21/2024 Orders Only [facility] [address] [facility] [address] Golden Thomas CNM related condition in third trimester ([facility]) 10/14/2024 8:30 AM EDT Routine [facility] [address] [facility] [address] Golden Thomas CNM Type 1 diabetes mellitus without complication (HCC) (Primary Dx); related condition in third trimester ([facility]); Amniotic fluid leaking ([facility]); Encounter for supervision of other normal , second trimester ([facility]) 10/14/2024 Bamboo flowsheet [facility] [address] [facility] [address] Golden Thomas CNM 10/13/2024 Travel 09/16/2024 8:30 AM EDT Routine [facility] [address] [place] [address] Golden Thomas CNM Insulin controlled gestational diabetes mellitus (GDM) in second trimester ([facility]) (Primary Dx); Encounter for supervision of other normal , second trimester ([facility]); Type 1 diabetes mellitus without complication (HCC) 09/16/2024 Bamboo flowsheet [facility] [address] [place] [address] Golden Thomas CNM 09/09/2024 Travel from Last [...] AM EDT Routine [facility] [address] [place] [address] Gabriel Mendez DO [address] [place] [address] Goals Goal Patient Goal Type Associated Problems Recent Progress Patient-Stated? Author Reminders Care Plan OB Reminders No Open Scheduling, Background Procedures Procedure Name Priority Date/Time Associated Diagnosis Comments US OB BPP W NON-STRESS 12/04/2024 9:49 PM EDT US OB GROWTH 11/26/2024 1:25 PM EDT US OB BPP W NON-STRESS 11/26/2024 1:23 PM EDT POCT URINALYSIS DIPSTICK Routine 11/26/2024 9:09 AM EDT 33 weeks gestation of ([facility]) US OB BPP W NON-STRESS 11/20/2024 10:16 AM EDT US OB FOLLOW UP TRANSABDOMINAL APPROACH Routine 11/02/2024 4:37 PM EDT related condition in third trimester ([facility]) from Last 3 Months Results * US OB BPP W NON-STRESS (12/04/2024 9:49 PM EDT) Only the most recent of3 resultswithin the time period is included. Anatomical Region Laterality Modality Other 12/04/2024 9:49 PM EDT Narrative 12/04/2024 9:51 PM EDT The [address] [address] Ultrasound Report Signed Patient: ALYSE MUNGUIA MR#: [id number] : 1990 Acct:[id number] Age/Sex: 34 / F ADM Date: 12/04/24 Loc: US Attending Dr: GOLDEN THOMAS APRN, CNM Ordering Physician: GOLDEN THOMAS APRN, CNM Date of Service: 12/04/24 Procedure(s): US OB BPP w non-stress Accession Number(s): [id number] cc: GOLDEN THOMAS APRN, CNM; Physician,Non-Staff M.D. The [address] [address] Patient Name: ALYSE MUNGUIA MRN: [id number] date: 1990 Sex: F Assigned Patient Location: [facility] Current Patient Location: Accession/Order Number: [id number] Exam Date: 12/04/2024 21:48 Report Date: 12/04/2024 21:49 At the request of: GOLDEN THOMAS APRN, CNM Procedure: US OB BPP w non-stress Ultrasound biophysical profile HISTORY: Type 1 diabetes Adequate breathing movement, gross body movement, tone and amniotic fluid volume for total score of 8 out of 8. The amniotic fluid index is 12.2cm within normal limits. The heart rate 157 bpm. US/US OB BPP w non-stress IMPRESSION: Adequate ultrasound biophysical profile Impression dictated by: Gerard Vo M.D. 12/04/2024 9:49 PM Dictation Location: [place] [address] Electronically authenticated by: [id number] Y Date: 12/04/2024 21:49 Dictated By: Gerard Vo D.O. Signed By: 12/04/242150 DD/ 48 TD/TT: Crm Developer: Procedure Note Radiology, Radiologist, MD - 12/05/2024 [place] [address] Ultrasound Report Signed Patient: MOLLY MUNGUIA#: [id number] : 1990Acct:[id number] Age/Sex: 34 / FADM Date: 12/04/24 Loc: US Attending Dr: GOLDEN THOMAS APRN, CNM Ordering Physician: GOLDEN THOMAS APRN, CNM Date of Service: 12/04/24 Procedure(s): US OB BPP w non-stress Accession Number(s): [id number] cc: GOLDEN THOMAS APRN, CNM; Physician,Non-Staff Van[place] The [address] [address] Patient Name: ALYSE MUNGUIA MRN: [id number] date: 1990 Sex: F Assigned Patient Location: [facility] Current Patient Location: Accession/Order Number: [id number] Exam Date: 12/04/2024 21:48 Report Date: 12/04/2024 21:49 At the request of: GOLDEN THOMAS APRN, CNM Procedure: US OB BPP w non-stress Ultrasound biophysical profile HISTORY: Type 1 diabetes Adequate breathing movement, gross body movement, tone and amniotic fluid volume for total score of 8 out of 8. The amniotic fluidindex is 12.2cm within normal limits. The heart rate 157 bpm. US/US OB BPP w non-stress IMPRESSION: Adequate ultrasound biophysical profile Impression dictated by: Gerard Vo M.D. 12/04/2024 9:49 PM [facility]ictation [facility] Electron[facility] authenticated by: [id number] Y Date: 1:49 Dictated By: Gerard Vo D.O. Signed By:12/04/242150 DD/ 48 TD/TT: Crm Developer: us Golden Thomas CNM [facility] Final Resu lt * US OB GROWTH (11/26/2024 1:25 PM EDT) Anatomical Region Laterality Modality Other 11/26/2024 1:25 PM EDT Narrative 11/26/2024 1:28 [place] [address] Ultrasound Report Signed Patient: ALYSE MUNGUIA MR#: [id number] : 1990 Acct:[id number] Age/Sex: 34 / F ADM Date: 11/26/24 Loc: US Attending Dr: GOLDEN THOMAS APRN, CNM Ordering Physician: GOLDEN THOMAS APRN, CNM Date of Service: 11/26/24 Procedure(s): US OB growth Accession Number(s): [id number] cc: GOLDEN THOMAS APRN, CNM; Physician,Non-Staff M.Edwardo The [address] [address] Patient Name: ALYSE MUNGUIA MRN: [id number] date: 1990 Sex: F Assigned Patient Location: [facility] Current Patient Location: Accession/Order Number: [id number] Exam Date: 11/26/2024 13:23 Report Date: 11/26/2024 [...] Jr., D.O. 11/26/2024 1:25 PM Dictation Location: [place] [address] Electronically authenticated by: [id number] Y Date: 11/26/2024 13:25 Dictated By: Luc Echeverria M.D. Signed By: 11/26/24 1328 DD/ 1325 TD/TT: Crm Developer: Procedure Note Radiology, Radiologist, MD - 11/26/2024 [place] [address] Ultrasound Report Signed Patient: MOLLY MUNGUIA#: [id number] : 1990Acct:[id number] Age/Sex: 34 / FADM Date: 11/26/24 Loc: US Attending Dr: GOLDEN THOMAS APRN, CNM Ordering Physician: GOLDEN THOMAS APRN, CNM Date of Service: 11/26/24 Procedure(s): US OB growth Accession Number(s): [id number] cc: GOLDEN THOMAS APRN, CNM; Physician,Non-Staff Vanessa The [address] [address] Patient Name: ALYSE MUNGUIA MRN: [id number] date: 1990 Sex: F Assigned Patient Location: [facility] Current Patient Location: Accession/Order Number: [id number] Exam Date: 11/26/2024 13:23 Report Date: 11/26/2024 [...] growth. Impression dictated by: Luc Echeverria Jr., D.OTony 11/26/2024 1:25 PM [facility]ictation [facility] Electronically authenticated by: [id number] Y Date: 3:25 Dictated By: Luc Echeverria M.D. Signed By:11/26/24 1328 DD/ 1325 TD/TT: Crm Developer: Golden Thomas CNM [facility] Final Resu [...] - Positive Urine 11/26/2024 9:09 AM EDT us Gabriel Mendez DO POINT OF CARE TEST [...] SIGNED BY: Luc Carter MD us Golden Thomas CNM IMG OB US PROCEDURES Final R esult from Last 3 Months Additional Health Concerns Active Problems Noted Date Diagnosed Date OB Reminders 07/14/2024 Insurance [employer]
--- OUTSIDE RECORDS SUMMARY | 2024-12-10 07:03 | XMS_ITS | Encounter Summary ---
Author Organization [facility] [employer] [facility] tem Address [id number] [address] [place] [address] Care Team Providers Care News Agent Name Role Phone Unavailable Primary Care Provider Unavailabl e Encounter Details Date Type Department Care Team (Late Contact Info) Description 12/08/2024 Orders Only [facility] [place] [facility] [address] [place] [address] Dolores Pride MD [address] [place] [address] Social History Tobacco Use Types Packs/Day Years [...] Care Team (Late st Contact Info) Description 12/14/2024 8:00 AM EDT Telemedicine Maternal- Medicine at [facility] [address] [place] [address] Chad Gregg MD [address], [address] [place] [address] documented as of this encounter Visit Diagnoses Not on filedocumented in this encounter
--- OUTSIDE RECORDS SUMMARY | 2024-12-10 07:03 | XMS_ITS | Encounter Summary ---
Author Organization [facility] Address [address] [place] [address] Care Team Providers Care Sustainable Agriculture Faculty Name Role Phone Unavailable Primary Care Provider Unavailabl e Encounter Details Date Type Department Care Team (Late Contact Info) Description 11/26/2024 Bamboo flowsheet FLORINDA MOLINA [address] [place] [address] Gabriel Mendez DO [address] [place] [address] Dr Ehsan [place], [place] [address] Social History Tobacco Use Types Packs/Day Years [...] 8:30 AM EDT Routine [facility] MOLINA [address] [facility] [place] [address] Gabriel Mendez DO [address] [place], [place] [phone] documented as of this encounter Goals Goal Patient Goal Type Associated Problems Recent Progress Patient-Stated? Author Reminders Care Plan OB Reminders No Open Scheduling, Background documented as of this encounter Visit Diagnoses Not on filedocumented in this encounter Additional Health Concerns Active Problems Noted Date Diagnosed Date OB Reminders 07/14/2024 documented as of this encounter
--- OUTSIDE RECORDS SUMMARY | 2024-12-10 07:03 | XMS_ITS | Clinical Summary ---
Author Organization [employer] tem Address [id number] [address] [place] [address] Care Team Providers Care Customs Entry Clerk Name Role Phone Unavailable Primary Care [...] 200 100 strip 6 5 Active insulin exchange operator cart,aut,G6/7, cntr (OMNIPOD 5 G6-G7 INTRO KT,GEN5,) cartridgeIndic ations:Type 1 diabetes mellitus in , first trimester Inject 1 each under the skin every 3 (three) days. 1 each 5 Active blood-glucose, copy and print associate,cont (DEXCOM G7 BASKET OPERATOR) miscIndication s:Type 1 diabetes mellitus during in [...] Last edited by Dolores Pride MD on 12/08/2024 at 11:54 AM Basal Rate Total Basal Dose: 12.4 units/day Time units/hr 12:00 AM 0.5 6:00 AM 0.65 11:00 AM 0.55 4:00 PM 0.5 8:00 PM 0.35 Blood Glucose Target Time mg/dL 12:00 AM 110 - 110 Sensitivity Factor Time mg/dL/unit 12:00 AM 50 Carb Ratio Time g/unit 12:00 AM 15 6:00 AM 9 11:00 AM 7 4:00 PM 8 8:00 PM 15 Problem Noted Date Diagnosed Date History of shoulder dystocia in prior , currently 06/24/2024 History of delivery, antepartum 025 Type 1 diabetes mellitus dur ing in second trimester 06/17/2024 Estimated Date of Delivery Comme nts Yes 01/14/2025 Based on Ultraso und Encounters Date Type Department Care Team Description 12/08/2024 Orders Only [facility] [address] [place] [address] Dolores Pride MD 12/03/2024 Orders Only [facility] [address] [place] [address] Dolores Pride MD 12/02/2024 Telephone [facility] [address] [place] [address] Shireen Lopez RN 11/23/2024 Orders Only [facility] [address] [place] [address] Dolores Pride MD 11/19/2024 9:15 AM EDT Telemedicine [facility] [address] [place] [address] Dolores Pride MD Type 1 diabetes mellitus during in third trimester (Primary Dx) 11/19/2024 Travel 11/17/2024 Telephone Maternal- Medicine at [address] [phone] Michelle Siegel RN 11/09/2024 Orders Only [facility] [address] [place] [address] Dolores Pride MD 11/09/2024 Telephone [facility] [address] [place] [address] Keeley Robles CMA 11/05/2024 11:00 AM EDT Telemedicine [facility] [address] [place] [address] Dolores Pride MD Type 1 diabetes mellitus during in third trimester (Primary Dx) 11/05/2024 Travel 11/02/2024 Travel 10/26/2024 12:00 PM EDT Telemedicine [facility] [address] [place] [address] Dolores Pride MD Type 1 diabetes mellitus during in second trimester (Primary Dx) 10/26/2024 Travel 10/21/2024 Orders Only Maternal- Medicine at [address] [address] Chad Gregg MD Type 1 diabetes mellitus during in second trimester 10/21/2024 Documentation Maternal- Medicine at [address] [place] [address] Treasure Freeman, CAMPOS 10/20/2024 Telephone Maternal- Medicine at [facility] [address] [place] [address] Shireen Lopez RN 10/15/2024 11:00 AM EDT Telemedicine [facility] [address] [place] [address] Dolores Pride MD Type 1 diabetes mellitus during in second trimester (Primary Dx) 10/14/2024 Travel 10/07/2024 Orders Only [facility] [address] [place] [address] Dolores Pride MD 10/06/2024 Orders Only [facility] [address] [facility] [place] [address] Dolores Pride MD 10/01/2024 10:00 AM EDT Telemedicine [facility] [address] [place] [address] Dolores Pride MD Type 1 diabetes mellitus during in second trimester 09/30/2024 Travel 09/24/2024 8:00 AM EDT Telemedicine [facility] [address] [facility] [place] [address] Dolores Pride MD Type 1 diabetes mellitus during in second trimester (Primary Dx) 09/23/2024 Travel 09/09/2024 Orders Only [facility] [address] [facility] [place] [address] Dolores Pride MD 09/09/2024 Telephone [facility] [address] [place] [address] Shireen Lopez RN from Last 3 Months Social History Tobacco [...] EDT Telemedicine Maternal- Medicine at [facility] [address] [place] [address] Chad Gregg MD [address], [address] [place] [address] Health Maintenance Due Date Last Done Comments [...]
--- OUTSIDE RECORDS SUMMARY | 2024-12-10 07:03 | XMS_ITS | Encounter Summary ---
Author Organization [employer] tem Address [id number] [address] [place] [address] Care Team Providers Care Strike Plate Attacher Name Role Phone Unavailable Primary Care Provider Unavailabl e Encounter Details Date Type Department Care Team (Late st Contact Info) Description 12/02/[address] [facility] [facility] [address] [place] [address] Shireen Lopez, RN Social History Tobacco Use Types Packs/Day [...] encounter Miscellaneous Notes * Telephone Encounter - Shireen Lopez RN - 12/02/2024 7:39 AM EDT Received a voicemail from patient that her child is sick and she needs to cancel her [address] Pride and would like to reschedule. Director Packaging telephoned pt, received voicemail. Asked patient to call our office to get rescheduled either for a MyChart visit or in person. Contact information given. documented in this encounter Plan of Treatment Upcoming Encounters Date Type Department Care Team (Late st Contact Info) Description 12/14/2024 8:00 AM EDT Telemedicine Maternal- Medicine at [facility] [address] [place] [address] Chad Gregg MD [address], [address] [place] [address] documented as of this encounter Visit Diagnoses Not on filedocumented in this encounter
--- OUTSIDE RECORDS SUMMARY | 2024-12-10 07:03 | XMS_ITS | Encounter Summary ---
Author Organization [facility] Address [address] [place] [address] Care Team Providers Care Supervisor Webbing Name Role Phone Unavailable Primary Care Provider Unavailabl e Encounter Details Date Type Department Care Team (Late Contact Info) Description 12/04/2024 Clinisync Result Encounter [facility] External Department Unsolicited Golden Thomas, CNM [address] [place] [address] Social History Tobacco Use Types Packs/Day Years [...] AM EDT Routine [facility] [place] [facility] [address] [facility] [place] [phone] Gabriel Mendez DO [address] [place] [address] documented as of this encounter Goals Goal Patient Goal Type Associated Problems Recent Progress Patient-Stated? Author Reminders Care Plan OB Reminders No Open Scheduling, Background documented as of this encounter Procedures Procedure Name Priority Date/Time Associated Diagnosis Comments US OB BPP W NON-STRESS 12/04/2024 9:49 PM EDT documented in this encounter Results * US OB BPP W NON-STRESS (12/04/2024 9:49 PM EDT) Anatomical Region Laterality Modality Other 12/04/2024 9:49 PM EDT Narrative 12/04/2024 9:51 [place] [address] Ultrasound Report Signed Patient: ALYSE MUNGUIA MR#: [id number] : 1990 Acct:[id number] Age/Sex: 34 / F ADM Date: 12/04/24 Loc: US Attending Dr: GOLDEN THOMAS APRN, CNM Ordering Physician: GOLDEN THOMAS APRN, CNM Date of Service: 12/04/24 Procedure(s): US OB BPP w non-stress Accession Number(s): [id number] cc: GOLDEN THOMAS APRN, CNM; Physician,Non-Staff M.DTony The [place] [id number] Patient Name: ALYSE MUNGUIA MRN: [id number] date: 1990 Sex: F Assigned Patient Location: [facility] Current Patient Location: Accession/Order Number: [id number] Exam Date: 12/04/2024 21:48 Report Date: 12/04/2024 [...] Vo M.D. 12/04/2024 9:49 PM Dictation Location: [facility]20 Electronically authenticated by: [id number] Y Date: 12/04/2024 21:49 Dictated By: Gerard Vo D.O. Signed By: 12/04/242150 DD/ 48 TD/TT: Salesperson Flowers: Procedure Note Radiology, Radiologist, - 12/05/2024 [place] [address] Ultrasound Report Signed Patient: MOLLY MUNGUIA#: [id number] : 1990Acct:[id number] Age/Sex: 34 / FADM Date: 12/04/24 Loc: US Attending Dr: GOLDEN THOMAS APRN, CNM Ordering Physician: GOLDEN THOMAS APRN, CNM Date of Service: 12/04/24 Procedure(s): US OB BPP w non-stress Accession Number(s): [id number] cc: GOLDEN THOMAS APRN, CNM; Physician,Non-Staff M.DTony The [place] [address] Patient Name: ALSYE MUNGUIA MRN: [facility]:[id number] date: 1990 Sex: F Assigned Patient Location: [facility] Current Patient Location: Accession/Order Number: [id number] Exam Date: 12/04/2024 21:48 Report Date: 12/04/2024 [...] Vo M.D. 12/04/2024 9:49 PM Dictation Location: [facility] Electronically authenticated by: [id number] Y Date: 1:49 Dictated By: Gerard Vo D.O. Signed By:12/04/242150 DD/ 48 TD/TT: Salesperson Flowers: us Golden Thomas CNM [facility] Final Resu lt documented in this encounter Visit Diagnoses Not on filedocumented in this encounter Additional Health Concerns Active Problems Noted Date Diagnosed Date OB Reminders 07/14/2024 documented as of this encounter
--- OUTSIDE RECORDS SUMMARY | 2024-12-10 07:03 | XMS_ITS | Encounter Summary ---
Author Organization [facility] Address [address] [facility] [place] [address] Care Team Providers Care Podiatric Physician Name Role Phone Unavailable Primary Care Provider Unavailabl e Encounter Details Date Type Department Care Team (Late Contact Info) Description 11/26/2024 [facility] [facility] [address] [place] [address] Floridalma Thomas, [place] [address] [place] [address] OB BPP W NON-STRESS Social History Tobacco Use Types Packs/Day Years [...] Description 12/10/2024 8:30 AM EDT Routine FLORINDA [place] [facility] [address] [facility] [place] [address] Gabriel Mendez DO [address] [place] [address] documented as of this encounter Goals Goal Patient Goal Type Associated Problems Recent Progress Patient-Stated? Author Reminders Care Plan OB Reminders No Open Scheduling, Background documented as of this encounter Visit Diagnoses Not on filedocumented in this encounter Additional Health Concerns Active Problems Noted Date Diagnosed Date OB Reminders 07/14/2024 documented as of this encounter
--- OUTSIDE RECORDS SUMMARY | 2024-12-10 07:03 | XMS_ITS | Encounter Summary ---
Author Organization [facility] Address [address] [place] [address] Care Team Providers Care Petrology Teacher Name Role Phone Unavailable Primary Care Provider Unavailabl e Encounter Details Date Type Department Care Team (Latest Contact Info) Description 12/09/2024 Travel Social History Tobacco Use Types Packs/Day [...] AM EDT Routine [facility] [place] [facility] [address] [facility] [place] [phone] Gabriel Mendez DO [address] [facility] [place] [address] documented as of this encounter Goals Goal Patient Goal Type Associated Problems Recent Progress Patient-Stated? Author Reminders Care Plan OB Reminders No Open Scheduling, Background documented as of this encounter Visit Diagnoses Not on filedocumented in this encounter Additional Health Concerns Active Problems Noted Date Diagnosed Date OB Reminders 07/14/2024 documented as of this encounter
--- OUTSIDE RECORDS SUMMARY | 2024-12-10 07:03 | XMS_ITS | Encounter Summary ---
Author Organization [facility] Address [address] [facility] [place] [address] Care Team Providers Care Rn Relief Charge Name Role Phone Unavailable Primary Care Provider Unavailabl e Encounter Details Date Type Department Care Team (Late Contact Info) Description 12/07/2024 Results [facility] [address] [place] [address] Floridalma Thomas, [place] [address] [place] [address] OB BPP W NON-STRESS Social History Tobacco [...] AM EDT Routine FLORINDA [place] OBGYIta [address] [facility] [place] [address] Gabriel Mendez DO [address] [place] [address] documented as of this encounter Goals Goal Patient Goal Type Associated Problems Recent Progress Patient-Stated? Author Reminders Care Plan OB Reminders No Open Scheduling, Background documented as of this encounter Visit Diagnoses Not on filedocumented in this encounter Additional Health Concerns Active Problems Noted Date Diagnosed Date OB Reminders 07/14/2024 documented as of this encounter
--- OUTSIDE RECORDS SUMMARY | 2024-12-10 07:03 | XMS_ITS | Encounter Summary ---
Author Organization [facility] Address [address] [place] [address] Care Team Providers Care Model Maker Plaster Name Role Phone Unavailable Primary Care Provider Unavailabl e Encounter Details Date Type Department Care Team (Late Contact Info) Description 11/26/2024 Clinisync Result Encounter [facility] External Department Unsolicited Golden Thomas, CNM [address] [place] [address] Social History Tobacco Use Types Packs/Day Years [...] EDT Routine [facility] [place] [facility] [address] [place] [address] Gabriel Mendez DO [address] [facility] [place] [address] documented as [...] EDT Narrative 11/26/2024 1:26 [place] [address] Ultrasound Report Signed Patient: ALYSE MUNGUIA MR#: [id number] : 1990 Acct:[id number] Age/Sex: 34 / F ADM Date: 11/26/24 Loc: US Attending Dr: GOLDEN THOMAS APRN, CNM Ordering Physician: GOLDEN THOMAS APRN, CNM Date of Service: 11/26/24 Procedure(s): US OB BPP w non-stress Accession Number(s): [id number] cc: GOLDEN THOMAS APRN, CNM; Physician,Non-Staff M.D. The [place] [id number] Patient Name: ALYSE MUNGUIA MRN: [id number] date: 1990 Sex: F Assigned Patient Location: US Current Patient Location: Accession/Order Number: [id number] Exam Date: 11/26/2024 13:22 Report Date: 11/26/2024 13:23 At the request of: GOLDEN THOMAS APRN, CNM Procedure: US OB BPP w non-stress Biophysical profile. Reason for exam: Type 1 diabetes COMPARISON: 11/19/2024 TECHNIQUE: Transabdominal imaging of the gravid uterus was obtained. FINDINGS: The prosthetics assistant reports a BPP of 8 out of 8. MASON is normal at 12.6 cm. heart rate 126 bpm. US/US OB BPP w non-stress IMPRESSION: BPP 8 out of 8. Impression dictated by: Luc Echeverria Jr. D.OTony 11/26/2024 1:23 PM Dictation Location: [employer] Electronically authenticated by: [id number] Y Date: 11/26/2024 13:23 Dictated By: Luc Echeverria M.D. Signed By: 11/26/24 1326 DD/ 1323 TD/TT: Station Baggage Agent: Procedure Note Radiology, Radiologist, MD - 11/26/2024 [place] [address] Ultrasound Report Signed Patient: MOLLY MUNGUIA#: [id number] : 1990Acct:[id number] Age/Sex: 34 / FADM Date: 11/26/24 Loc: US Attending Dr: GOLDEN THOMAS APRN, CNM Ordering Physician: GOLDEN THOMAS APRN, CNM Date of Service: 11/26/24 Procedure(s): US OB BPP w non-stress Accession Number(s): [id number] cc: GOLDEN THOMAS APRN, CNM; Physician,Non-Staff Vanessa The [place] [id number] Patient Name: ALYSE MUNGUIA MRN: [facility]:[id number] date: 1990 Sex: F Assigned Patient Location: US Current Patient Location: Accession/Order Number: [id number] Exam Date: 11/26/2024 13:22 Report Date: 11/26/2024 13:23 At the request of: GOLDEN THOMAS APRN, CNM Procedure: US OB BPP w non-stress Biophysical profile. Reason for exam: Type 1 diabetes COMPARISON: 11/19/2024 TECHNIQUE: Transabdominal imaging of the gravid uterus was obtained. FINDINGS: The prosthetics assistant reports a BPP of 8 out of 8. MASON is normal at12.6 cm. heart rate 126 bpm. US/US OB BPP w non-stress IMPRESSION: BPP 8 out of 8. Impression dictated by: Luc Echeverria Jr., D.OTony 11/26/2024 1:23 PM Dictation Location: [place] [address] Electronically authenticated by: [id number] Y Date: 3:23 Dictated By: Luc Echeverria M.D. Signed By:11/26/24 1326 DD/ 1323 TD/TT: Station Baggage Agent: us Golden Thomas CNM [facility] Final Resu lt documented in this encounter Visit Diagnoses Not on filedocumented in this encounter Additional Health Concerns Active Problems Noted Date Diagnosed Date OB Reminders 07/14/2024 documented as of this encounter
--- OUTSIDE RECORDS SUMMARY | 2024-12-10 07:03 | XMS_ITS | Encounter Summary ---
Author Organization [facility] [employer] [facility] tem Address [id number] [address] [place] [address] Care Team Providers Care Office Inspector Name Role Phone Unavailable Primary Care Provider Unavailabl e Encounter Details Date Type Department Care Team (Late Contact Info) Description 12/03/2024 Orders Only [facility] [place] [facility] [address] [place] [address] Dolores Pride MD [address] [place] [address] Social History Tobacco Use Types Packs/Day Years [...] 8:00 AM EDT Telemedicine Maternal- Medicine at [facility] [address] [place] [address] Chad Gregg MD [address], [address] [place] [address] documented as of this encounter Visit Diagnoses Not on filedocumented in this encounter
--- OUTSIDE RECORDS SUMMARY | 2024-12-10 07:03 | XMS_ITS | Encounter Summary ---
Author Organization [facility] tem Address [facility] [id number] [address] [place] [address] Care Team Providers Care Child Monitor Name Role Phone Unavailable Primary Care Provider Unavailabl e Encounter Details Date Type Department Care Team ([facility] Contact Info) Description 07/15/2024 Orders Only Maternal- Medicine at [facility] [address] [place] [address] Ranye Potts RN Type 1 diabetes mellitus in , first trimester Social History Tobacco Use Types Packs/Day Years [...] Department Care Team (Late Contact Info) Description 12/14/2024 8:00 AM EDT Telemedicine Maternal- Medicine at [facility] [address] [place] [address] Chad Gregg MD [address], [address] [place] [address] documented as of this encounter Procedures Procedure Name Priority Date/Time Associated Diagnosis Comments COMPREHENSIVE METABOLIC PANEL Routine 07/04/2024 Type 1 diabetes mellitus in , first trimester documented in this encounter Results * Comprehensive metabolic panel (07/04/2024) External Albumin 4.1 MAN UALLY TRANSCRIBED RESULTS External Alt Sgpt 13 MANUALLY TRANSCRIBED RESULTS External Anion Gap 14 MANUALLY TRANSCRIBED RESULTS External Ast 18 MANUALL Y TRANSCRIBED RESULTS External Blood Urea Nitrogen Bun 9 MANUALLY TRANSCRIBED RESULTS External Calcium Ca 9.5 MANUALLY TRANSCRIBED RESULTS External Chloride 103 MANUALLY TRANSCRIBED RESULTS External Co2 / Carbon Dioxide 22 MANUALLY TRANSCRIBED RESULTS External Creatinine 0.59 MANUALLY TRANSCRIBED RESULTS External Alkaline Phosphatase 69 MANUALLY TRANSCRIBED RESULTS External Glucose Fasting Or Random (Fbs) 94 MANUALLY TRANSCRIBED RESULTS External Potassium K 4.2 MANUALLY TRANSCRIBED RESULTS External Sodium Na 139 MANUALLY TRANSCRIBED RESULTS Total Bilirubin 0.4 MANU ALLY TRANSCRIBED RESULTS External Total Protein 6.7 MANUALLY TRANSCRIBED RESULTS Blood 07/04/2024 [facility] BLOOD ORDERABLES Fi nal Result MANUALLY TRANSCRIBED RESULTS documented in this encounter Visit Diagnoses Diagnosis Type 1 diabetes mellitus in , first trimester documented in this encounter
--- OUTSIDE RECORDS SUMMARY | 2024-12-10 07:03 | XMS_ITS | Encounter Summary ---
Author Organization [facility] Address [address] [place] [address] Care Team Providers Care Taxicab Driver Name Role Phone Unavailable Primary Care Provider Unavailabl e Encounter Details Date Type Department Care Team (Late st Contact Info) Description 11/26/2024 Clinisync Result Encounter [facility] External Department Unsolicited Golden Thomas, CNM [address] [place] [address] Social History Tobacco Use Types Packs/Day Years [...] [address] [phone] Gabriel Mendez DO [address] [place], [place] [id number] documented as of this encounter Goals Goal [...] PM EDT Narrative 11/26/2024 1:28 [place] [address] Ultrasound Report Signed Patient: ALYSE MUNGUIA MR#: [id number] : 1990 Acct:[id number] Age/Sex: 34 / F ADM Date: 11/26/24 Loc: US Attending Dr: GOLDEN THOMAS APRN, CNM Ordering Physician: GOLDEN THOMAS APRN, CNM Date of Service: 11/26/24 Procedure(s): US OB growth Accession Number(s): [id number] cc: GOLDEN THOMAS APRN, CNM; Physician,Non-Staff M.D. The [place] [address] Patient Name: ALYSE MUNGUIA MRN: [id number] date: 1990 Sex: F Assigned Patient Location: [facility] Current Patient Location: Accession/Order Number: [id number] Exam Date: 11/26/2024 13:23 Report Date: 11/26/2024 [...] Jr., D.O. 11/26/2024 1:25 PM Dictation Location: [place] [address] Electronically authenticated by: [id number] Y Date: 11/26/2024 13:25 Dictated By: Luc Echeverria M.D. Signed By: 11/26/24 1328 DD/ 132 TD/TT: Stone Gluer: Procedure Note Radiology, Radiologist, MD - 11/26/2024 [place] [address] Ultrasound Report Signed Patient: MOLLY MUNGUIA#: [id number] : 1990Acct:[id number] Age/Sex: 34 / FADM Date: 11/26/24 Loc: US Attending Dr: GOLDEN THOMAS APRN, CNM Ordering Physician: GOLDEN THOMAS APRN, CNM Date of Service: 11/26/24 Procedure(s): US OB growth Accession Number(s): [id number] cc: GOLDEN THOMAS APRN, CNM; Physician,Non-Staff Vanessa The [place] [id number] Patient Name: ALYSE MUNGUIA MRN: [id number] date: 1990 Sex: F Assigned Patient Location: [facility] Current Patient Location: Accession/Order Number: [id number] Exam Date: 11/26/2024 13:23 Report Date: 11/26/2024 [...] growth Impression: Appropriate growth. Impression dictated by: Edwardo Cramer Jr.OTony 11/26/2024 1:25 PM Dictation Location: [place] [address] Electronically authenticated by: [id number] Y Date: 3:25 Dictated By: Luc Echeverria M.D. Signed By:11/26/24 1328 DD/ 1325 TD/TT: Stone Gluer: us Golden Thomas CNM [facility] Final Resu lt documented in this encounter Visit Diagnoses Not on filedocumented in this encounter Additional Health Concerns Active Problems Noted Date Diagnosed Date OB Reminders 07/14/2024 documented as of this encounter
--- OUTSIDE RECORDS SUMMARY | 2024-12-10 07:03 | XMS_ITS | Encounter Summary ---
Author [facility] Address [id number] [address] [place] [address] Care Team Providers Care Grape Cutter Name Role Phone Unavailable Primary Care Provider Unavailabl e Encounter Details Date Type Department Care Team (Late Contact Info) Description 08/17/2024 Orders Only Maternal- Medicine at [facility] [address] [place] [phone] Chad Gregg MD [address], [address] [place] [address] Social History Tobacco Use Types Packs/Day Years [...] 8:00 AM EDT Telemedicine Maternal- Medicine at [facility] [address] [place] [address] Chad Gregg MD [address], [address] [place] [address] documented as of this encounter Visit Diagnoses Not on filedocumented in this encounter
--- OUTSIDE RECORDS SUMMARY | 2024-12-10 07:03 | XMS_ITS | Encounter Summary ---
Author Organization [facility] Address [address] [facility] [place] [address] Care Team Providers Care Manager Hair Name Role Phone Unavailable Primary Care Provider Unavailabl e Encounter Details Date Type Department Care Team (Late Contact Info) Description 11/26/2024 Results Follow-Up [facility] [address] [place] [address] Floridalma Thomas, [place] [address] [place] [address] OB GROWTH Social History Tobacco Use Types Packs/Day Years [...] AM EDT Routine [facility] [place] [facility] [address] [facility] [place] [place] [phone] Gabriel Mendez DO [address] [place] [place] [phone] documented as of this encounter Goals Goal Patient Goal Type Associated Problems Recent Progress Patient-Stated? Author Reminders Care Plan OB Reminders No Open Scheduling, Background documented as of this encounter Visit Diagnoses Not on filedocumented in this encounter Additional Health Concerns Active Problems Noted Date Diagnosed Date OB Reminders 07/14/2024 documented as of this encounter
--- OUTSIDE RECORDS SUMMARY | 2024-12-10 07:04 | XMS_ITS | Clinical Summary ---
Author Organization [facility] Address [address], [address] [place] [address] Care Team Providers Care Wellness Nurse Rn Name Role Phone Unavailable Primary Care Provider Unavailabl e Allergies No known active allergies Medications Continuous Blood Gluc Blueprint Cutter (FREESTYLE ILIANA 2 READER SYSTM) DEVIIndications:Un controlled [...] Description 10/14/2024 Transcribe Orders [facility] Pre Access [address] [place], [place] [id number] Floridalma Thomas APRN - CNM Amniotic fluid [...] or with Pap) 2022 COVID-19 Vaccine ( season) 2023 Flu vaccine (#1) 11/20/2024 HIV screen Completed 06/07/2017 Hepatitis C screen Completed 06/07/2017 HPV vaccine (No Doses Required) Completed Hepatitis A vaccine Aged Out No longe [...] Ur <1.20 <2.0 mg/dL 05/11/2020 4:[address] [facility] Creatinine, Ur 111.9 28.0 - 259.0 mg/dL 05/11/2020 4:[address] [facility] Albumin/Creatinin e Ratio see below 0.0 - 30.0 mg/g 05/11/2020 4:[address] [facility] Comment: Ratio cannot be calculated since microalbumin level is below the lower detection limit. URINE SPECIMEN / Unknown 05/11/2020 8:21 AM EST 05/11/2020 3:11 PM EST Narrative [facility] - 05/11/2020 4:26 PM EST Performed at: [facility] [address] [place] [address] us Stefany Tariq MD URINE ORDERABLES Final Result Performing Organization Address City/[facility]/ZIP Co de Phone Number [facility] [address] [place] [address], [facility] [phone] * (ABNORMAL) Lipid Panel (05/11/2020 8:11 AM EST) Cholesterol, Total 198 0 - 199 mg/dL 05/11/2020 3:45 PM EST [facility] Triglycerides 100 0 - 150 mg/dL 05/11/19 3:45 PM EST [facility] HDL 95(H) 40 - 60 mg/dL 05/11/2020 3:45 PM EST [facility] LDL Calculated 83 <100 mg/dL 05/11/2020 3:45 PM EST [facility] VLDL Cholesterol Calculated 20 Not Established mg/dL 05/11/2020 3:45 PM EST [facility] BLOOD SPECIMEN / Unknown 05/11/2020 8:11 AM EST 05/11/2020 3:11 PM EST Narrative [facility] - 05/11/2020 4:12 PM EST Performed at: [facility] [address] [place] [address] us Stefany Tariq MD CHEMISTRY ORDERABLES Final Resu lt Performing Organization Address City/[facility]/ZIP Co de Phone Number [facility] [address] [place] [address], [facility] [phone] * Comprehensive Metabolic Panel (05/11/2020 8:11 AM EST) Sodium 140 136 - 145 mmol/L 05/11/2020 3:[address] [facility] Potassium 4.6 3.5 - 5.1 mmol/L 05/11/2020 3:[address] [facility] Chloride 101 99 - 110 mmol/L 05/11/2020 3:[address] [facility] CO2 27 21 - 32 mmol/L 05/11/2020 3:[address] [facility] Anion Gap 12 3 - 16 05/11/2020 3:[address] [facility] Glucose 97 70 - 99 mg/dL 05/11/2020 3:[address] [facility] BUN 11 7 - 20 mg/dL 05/11/2020 3:[address] [facility] Creatinine 0.6 0.6 - 1.1 mg/dL 05/11/2020 3:[address] [facility] GFR Non- >60 >60 05/11/2020 3:[address] [facility] Comment: >60 mL/min/1.73m2 EGFR, calc. for ages 18 and older using the MDRD formula (not corrected for weight), is valid for stable renal function. GFR >60 >60 05/11/2020 3:[address] [facility] Comment: Chronic Kidney Disease: less than 60 ml/min/1.73 sq.m. Kidney Failure: less than 15 ml/min/1.73 sq.m. Results valid for patients 18 years and older. Calcium 9.7 8.3 - 10.6 mg/dL 05/11/2020 3:[address] [facility] Total Protein 6.7 6.4 - 8.2 g/dL 05/11/2020 3:[address] [facility] Albumin 4.1 3.4 - 5.0 g/dL 05/11/2020 3:[address] [facility] Albumin/Globulin Ratio 1.6 1.1 - 2.2 05/11/2020 3:[address] [facility] Total Bilirubin 0.4 0.0 - 1.0 mg/dL 05/11/2020 3:[address] [facility] Alkaline Phosphatase 69 40 - 129 U/L 05/11/2020 3:45 PM EST [facility] ALT 20 10 - 40 U/L 05/11/2020 3:45 PM EST [facility] AST 24 15 - 37 U/L 05/11/2020 3:45 PM EST [facility] Globulin 2.6 g/dL 05/11/2020 3:45 PM EST [facility] BLOOD SPECIMEN / Unknown 05/11/2020 8:11 AM EST 05/11/2020 3:[address] [facility] - 05/11/2020 4:26 PM EST Performed at: [facility] [address] [place] [address] us Stefany Tariq MD CHEMISTRY ORDERABLES Final Resu lt Performing Organization Address City/State/[facility] Co de Phone Number [facility] [address] [place] [address] * PAP SMEAR (06/13/2018 9:00 AM EST) 06/13/2018 9:00 AM EST 06/16/2018 7:[address] [facility] - 06/18/2018 3:46 [place] [address] Ph. [phone] Department of Pathology FINAL CYTOLOGY PAP REPORT Patient Name: ALYSE PATEL Accession No: [id number] Age Sex: 1990 27 Y / F Location: [facility] Account No: [id number] Collected: 06/13/2018 Med Rec No: [id number] Received: 06/16/2018 Attend Phys: HAZEL RAMOS MD Completed: 06/18/2018 Perform Phys: HAZEL RAMOS MD GENERAL CATEGORIZATION: Negative for Intraepithelial Lesion or Malignancy SPECIMEN ADEQUACY: Satisfactory for Evaluation. Endocervical cells/transformation zone component present. Specimen: THINPREP LIQUID BASE IMAGED DIAGNOSTIC, CERVICAL ENDOCERVICAL History: No Prior Abnormal Smear: No CPT: Technical: 55874 X1 Case signed out at [facility], [address] [place] [address] Specimen was processed and screened at [facility], [address] [place] [address] Our Cytology Laboratory uses the ThinPrep Sas Architect to automatically screen all ThinPrep Pap smears. The ThinPrep Sas Architect is approved by the FDA for this [...] Screened By: Rescreened By: MATHIEU BARNETT CT(ASCP) JUSTIN(ASCP) Electronically signed out by 06/18/2018 Page 1 of 1 Hazel Vang MD PATHOLOGY/CYTOLOGY ORDERA BLES Final Result [facility] [address] [place] [address] * Hepatitis C Antibody (06/07/2017 9:16 AM EST) Hep C Ab Interp Non-reacti ve Non-reacti ve 06/07/2017 9:07 PM EST [facility] 06/07/2017 9:16 AM EST 06/07/2017 4:46 PM EST Hazel Vang MD IMMUNOLOGY ORDERABLES Fin al Result [facility] * HIV Screen (06/07/2017 9:16 AM EST) [...] 9:16 AM EST 06/07/2017 4:46 PM EST us Hazel Vang MD IMMUNOLOGY ORDERABLES Fin al Result [facility] from Last 3 Months or Most Recently Relevant to Health Maintenance Insurance [employer] Member Subscriber Plan / Payer (Ef fective 2023-Present) Name:Vinh Munguiay Relation to Subscriber:Self Name:Magalis Munguiatany Payer ID:Not on file Type:Not on file Address: [address] [place] [place] [phone] Advance Directives * Full Code (Latest Code Status on File) Date Activated Date Inactivated Comments 08/20/2016 6:44 PM 08/23/2016 2:21 PM * Full Code Date Activated Date Inactivated Comments 08/20/2016 5:42 PM 08/20/2016 6:44 PM
--- OUTSIDE RECORDS SUMMARY | 2024-12-10 07:04 | XMS_ITS | Encounter Summary ---
Author Organization [facility] Address [address] [facility] [place] [address] Care Team Providers Care Court Reporter Name Role Phone Unavailable Primary Care Provider Unavailabl e Encounter Details Date Type Department Care Team (Late Contact Info) Description 11/23/2024 Results [facility] [address] [place] [address] Floridalma Thomas, [place] [address] [place] [address] OB BPP W NON-STRESS Social History Tobacco [...] AM EDT Routine FLOR[facility]DA [place] [facility]BG[facility]ta [address] [facility] [place] [phone] Gabriel Mendez DO [address] [place] [address] documented as of this encounter Goals Goal Patient Goal Type Associated Problems Recent Progress Patient-Stated? Author Reminders Care Plan OB Reminders No Open Scheduling, Background documented as of this encounter Visit Diagnoses Not on filedocumented in this encounter Additional Health Concerns Active Problems Noted Date Diagnosed Date OB Reminders 07/14/2024 documented as of this encounter
--- OUTSIDE RECORDS SUMMARY | 2024-12-10 07:04 | XMS_ITS | Encounter Summary ---
Author Organization [facility] Address [address], [address] [place] [address] Care Team Providers Care Cdl Program Coordinator Name Role Phone Unavailable Primary Care Provider Unavailabl e Reason for Visit * Reason Comments Medication Refill Encounter Details Date Type Department Care Team (Late st Contact Info) Description 05/16/2021 Refill [facility] [address] [place], [place] [phone] Stefany Tariq MD [address] [place] [address] Medication Refill Social History Tobacco Use Types [...]
--- OUTSIDE RECORDS SUMMARY | 2024-12-10 07:04 | XMS_ITS | Encounter Summary ---
Author Organization [facility] tem Address [id number] [address] [place] [address] Care Team Providers Care Sketch Maker Name Role Phone Unavailable Primary Care Provider Unavailabl e Encounter Details Date Type Department Care Team (Late Contact Info) Description 06/05/2024 Orders Only Maternal- Medicine at [facility] [address] [place] [phone] Ref Prov, [place] [address] Social History Tobacco Use Types Packs/Day Years [...] 8:00 AM EDT Telemedicine Maternal- Medicine at [facility] [address] [place] [phone] Chad Gregg MD [address], [address] [place] [address] documented as of this encounter Visit Diagnoses Not on filedocumented in this encounter
--- OUTSIDE RECORDS SUMMARY | 2024-12-10 07:04 | XMS_ITS | Encounter Summary ---
Author Organization [facility] Address [address] [place] [address] [place] [address] Care Team Providers Care Filament Tester Name Role Phone Unavailable Primary Care Provider Unavailabl e Encounter Details Date Type Department Care Team (Late Contact Info) Description 07/14/2024 Abstract FLORINDA [place] [facility] [address] [place] [phone] Floridalma Thomas CN [address] [place] [address] Social History Tobacco Use Types Packs/Day Years [...] 12/10/2024 8:30 AM EDT Routine FLORINDA [place] OBG[facility] [address] [place] [address] Gabriel Mendez DO [address] [place] [address] documented as of this encounter Goals Goal Patient Goal Type Associated Problems Recent Progress Patient-Stated? Author Reminders Care Plan OB Reminders No Open Scheduling, Background documented as of this encounter Visit Diagnoses Not on filedocumented in this encounter Additional Health Concerns Active Problems Noted Date Diagnosed Date OB Reminders 07/14/2024 documented as of this encounter
--- OUTSIDE RECORDS SUMMARY | 2024-12-10 07:04 | XMS_ITS | Encounter Summary ---
Author Organization [facility] Address [address], [address] [place] [address] Care Team Providers Care Slide Attendant Name Role Phone Unavailable Primary Care Provider Unavailabl e Reason for Referral * Imaging (Routine) - Closed Specialty Diagnoses / Procedures Referred By Sejal lugo Referred To Contact Radiology Diagnoses Brain cyst Procedures MRI BRAIN W WO CONTRAST Anthony Sherman MD [address] [facility] [address] [place] [address] Phone: tel: fax: Referral ID Status Reason Start Date Expiration Date Visits Re quested Visits Authorized [id number] Closed 08/06/2023 09/20/2023 1 1 Encounter Details Date Type Department Care Team (Latest Contact Info) Description 08/08/2023 Transcribe Orders [facility] Pre Access [address] [place], [place] [phone] Anthony Sherman MD [address] [place] [address] Brain cyst (Primary Dx) Social [...]
--- OUTSIDE RECORDS SUMMARY | 2024-12-10 07:04 | XMS_ITS | Encounter Summary ---
Author Organization [facility] Address [address] [place] [address] Care Team Providers Care Government Affairs Fellow Name Role Phone Unavailable Primary Care Provider Unavailabl e Encounter Details Date Type Department Care Team (Late st Contact Info) Description 05/05/2024 Orders Only FLORINDA [facility] [address] [place] [phone] Floridalma Thomas CN [address] [place] [address] Amenorrhea Social History Tobacco Use Types Packs/Day [...] 12/10/2024 8:30 AM EDT Routine NOMOdilon [place] OBGYIta [address] [place] [phone] Gabriel Mendez DO [address] [facility] [address] [place] [address] Scheduled Orders Name Type Priority Associated Diagnoses Orde r Schedule US OB transvaginal Imaging Routine Amenorrhea Expected: 05/05/2024, Expires: 05/05/2025 documented as of this encounter Visit Diagnoses Diagnosis Amenorrhea Absence of menstruation documented in this encounter
--- OUTSIDE RECORDS SUMMARY | 2024-12-10 07:04 | XMS_ITS | Encounter Summary ---
Author Organization [facility] Address [address] [place] [address] Care Team Providers Care Mixer Operator Hot Metal Name Role Phone Unavailable Primary Care Provider Unavailabl e Encounter Details Date Type Department Care Team (Latest Contact Info) Description 11/17/2024 [facility] [address] [place] [address] Floridalma Thomas CN [address] [place] [address] OB follow up transabdominal approach Social History Tobacco Use Types Packs/Day Years [...] AM EDT Routine FLORINDA [place] OBGYN [address] [place] [address] Gabriel Mendez DO [address] [place], [place] [phone] documented as of this encounter Goals Goal Patient Goal Type Associated Problems Recent Progress Patient-Stated? Author Reminders Care Plan OB Reminders No Open Scheduling, Background documented as of this encounter Visit Diagnoses Not on filedocumented in this encounter Additional Health Concerns Active Problems Noted Date Diagnosed Date OB Reminders 07/14/2024 documented as of this encounter
--- OUTSIDE RECORDS SUMMARY | 2024-12-10 07:04 | XMS_ITS | Encounter Summary ---
Author Organization [facility] Address [address], [address] [place] [address] Care Team Providers Care Employment Counselor Name Role Phone Unavailable Primary Care Provider Unavailabl e Encounter Details Date Type Department Care Team (Late st Contact Info) Description 02/03/2020 Orders Only [address] [place] [address] Uncontrolled type 1 diabetes mellitus [...] <1.20 <2.0 mg/dL 02/03/2020 1:00 PM EDT [facility] Creatinine, Ur 259.3(H) 28.0 - 259.0 mg/dL 02/03/2020 1:00 PM EDT [facility] Albumin/Creatinin e Ratio see below 0.0 - 30.0 mg/g 02/03/2020 1:00 PM EDT [facility] Comment: Ratio cannot be calculated since microalbumin level is below the lower detection limit. URINE SPECIMEN / Unknown 02/03/2020 8:48 AM EDT 02/03/2020 11:18 AM EDT Narrative [facility] - 02/03/2020 1:13 PM EDT Performed at: [facility] [address] [place] [address] us Stefany Tariq MD URINE ORDERABLES Final Result [facility] [address] [place] [address], [facility] [phone] * (ABNORMAL) Comprehensive Metabolic Panel (02/03/2020 8:38 AM EDT) Sodium 142 136 - 145 mmol/L 02/03/2020 12:40 PM EDT [facility] Potassium 4.1 3.5 - 5.1 mmol/L 02/03/2020 12:40 PM EDT [facility] Chloride 106 99 - 110 mmol/L 02/03/2020 12:40 PM [facility] CO2 23 21 - 32 mmol/L 02/03/2020 12:40 PM [facility] Anion Gap 13 3 - 16 02/03/2020 12:40 PM [facility] Glucose 62(L) 70 - 99 mg/dL 02/03/2020 12:40 PM [facility] BUN 8 7 - 20 mg/dL 02/03/2020 12:40 PM [facility] Creatinine 0.6 0.6 - 1.1 mg/dL 02/03/2020 12:40 PM [facility] GFR Non- >60 >60 02/03/2020 12:40 PM [facility] Comment: >60 mL/min/1.73m2 EGFR, calc. for ages 18 and older using the MDRD formula (not corrected for weight), is valid for stable renal function. GFR >60 >60 02/03/2020 12:40 PM [facility] Comment: Chronic Kidney Disease: less than 60 ml/min/1.73 sq.m. Kidney Failure: less than 15 ml/min/1.73 sq.m. Results valid for patients 18 years and older. Calcium 9.2 8.3 - 10.6 mg/dL 02/03/2020 12:40 PM [facility] Total Protein 6.6 6.4 - 8.2 g/dL 02/03/2020 12:40 PM [facility] Albumin 4.1 3.4 - 5.0 g/dL 02/03/2020 12:40 PM [facility] Albumin/Globulin Ratio 1.6 1.1 - 2.2 02/03/2020 12:40 PM [facility] Total Bilirubin 0.3 0.0 - 1.0 mg/dL 02/03/2020 12:40 PM [facility] Alkaline Phosphatase 65 40 - 129 U/L 02/03/2020 12:40 PM [facility] ALT 15 10 - 40 U/L 02/03/2020 12:40 PM [facility] AST 24 15 - 37 U/L 02/03/2020 12:40 PM EDT [facility] Globulin 2.5 g/dL 02/03/2020 12:40 PM EDT [facility] BLOOD SPECIMEN / Unknown 02/03/2020 8:38 AM EDT 02/03/2020 11:17 AM EDT [facility] - 02/03/2020 1:09 PM EDT Performed at: [facility] [address] [place] [address] us Stefany Tariq MD CHEMISTRY ORDERABLES Final Resu lt [facility] [address] [place] [address] * Hemoglobin A1C (02/03/2020 8:38 AM EDT) Hemoglobin A1C 7.9 See comment % 02/03/2020 1:21 PM EDT [facility] Comment: Comment: Diagnosis of Diabetes: > or = 6.5% Increased risk of diabetes (Prediabetes): 5.7-6.4% Glycemic Control: Non Adults: <7.0% : <6.0% Estimated Avg Glucose 180.0 mg/dL 02/03/2020 1:21 PM EDT [facility] BLOOD SPECIMEN / Unknown 02/03/2020 8:38 AM EDT 02/03/2020 11:17 AM EDT [facility] - 02/03/2020 1:21 PM EDT Performed at: [facility] [address] [place] [address] us Stefnay Tariq MD CHEMISTRY ORDERABLES Final Resu lt Performing Organization Address City/[facility]/ZIP Co de Phone Number [facility] [address] [place] [address] * (ABNORMAL) Lipid Panel (02/03/2020 8:38 AM EDT) Cholesterol, Total 213(H) 0 - 199 mg/dL 02/03/2020 12:40 PM EDT [facility] Triglycerides 73 0 - 150 mg/dL 02/03/20 20 12:40 PM EDT [facility] HDL 97(H) 40 - 60 mg/dL 02/03/2020 12:40 PM EDT [facility] LDL Calculated 101(H) <100 mg/dL 02/03/2020 12:40 PM EDT [facility] VLDL Cholesterol Calculated 15 Not Established mg/dL 02/03/2020 12:40 PM EDT [facility] BLOOD SPECIMEN / Unknown 02/03/2020 8:38 AM EDT 02/03/2020 11:17 AM EDT Narrative [facility] - 02/03/2020 1:09 PM EDT Performed at: [facility] [address] [facility], [place] [address] us Stefany Tariq MD CHEMISTRY ORDERABLES Final Resu lt [facility] [address] [place] [address], [facility] [phone] documented in this encounter Visit Diagnoses Diagnosis Uncontrolled type 1 diabetes mellitus with hyperglycemia (HCC) Hypercholesterolemia Pure hypercholesterolemia documented in this encounter
--- OUTSIDE RECORDS SUMMARY | 2024-12-10 07:04 | XMS_ITS | Encounter Summary ---
Author Organization [facility] Address [address] [place] [address] Care Team Providers Care Janitorial Cleaner Name Role Phone Unavailable Primary Care Provider Unavailabl e Encounter Details Date Type Department Care Team (Late st Contact Info) Description 06/24/2024 Telephone [facility] [address] [place] [phone] Floridalma Thomas CN [address] [place], [place] [id number] Social History Tobacco Use Types Packs/Day Years [...] just give me a call back at [phone].Thank you. documented in this encounter Plan of Treatment Upcoming Encounters Date Type Department Care Team (Late st Contact Info) Description 12/10/2024 8:30 AM EDT Routine [facility] [address] [place] [address] Gabriel Mendez DO [address] [place] [address] documented as of this encounter Visit Diagnoses Not on filedocumented in this encounter
--- OUTSIDE RECORDS SUMMARY | 2024-12-10 07:04 | XMS_ITS | Encounter Summary ---
Author Organization [employer] Address [facility] [facility]-[id number] [address] [place] [address] Care Team Providers Care Certified Alcohol Counselor Name Role Phone Unavailable Primary Care Provider Unavailabl e Reason for Referral * Diagnostic Imaging (Routine) - Pending Review Specialty Diagnoses / Procedures Referred By Contsilverio t Referred To Contact Maternal and Medicine Diagnoses Type 1 diabetes mellitus in , first trimester Procedures US [facility] with or without consult Laurence Lunsford APRN-CNP [address] [place] [address] Phone: tel: fax: Maternal- Medicine at [address] [address] Phone: tel: fax: Referral ID Status Reason Start Date Expiration Date V isits Requested Visits Authorized [id number] Pending Review 06/18/2024 06/18/2025 1 1 Encounter Details Date Type Department Care Team (Late st Contact Info) Description 06/18/2024 Orders Only Maternal- Medicine at [place] [address] [place] [phone] Mahnaz Lopez, QUALITY CONTROL AUDITOR Type 1 diabetes mellitus in , first [...] 8:00 AM EDT Telemedicine Maternal- Medicine at [facility] [address] [place] [address] Chad Gregg MD [address], [address] [place] [address] documented as of this encounter Results * US MFM COMPREHENSIVE ANATOMIC SURVEY (08/24/2024 9:37 AM EDT) Anatomical Region Laterality Modality OB-PLEXIGLAS FORMER Ultrasound 08/24/2024 8:13 AM EDT Narrative 08/24/2024 10:55 AM EDT NAME: SERENA BEYER : 1990 SEX: F Accession Number: [id number] ORDERING PHYSICIAN: LAURENCE LUNSFORD REFERRING PHYSICIAN: GOLDEN YANG Coding ----- --------- Procedures [id number]: Ultrasound, uterus, real time with image documentation, and maternal evaluation plus detailed anatomic examination, transabdominal approach;single or first gestation 17405: Transvaginal Ultrasound (OB) 93671: Echocardiography, , cardiovascular system, real time with image documentation (2D), with or without M-mode recording Indication ----- --------- Screening for Anatomic Survey, Screening for cervical length, Screening for congenital cardiac abnormality, Pre-existing Type 1 diabetes in , History of prior with delivery, Previous , Obesity in History ----- --------- OB History 3. Para 2 [id number] Maternal Assessment ----- --------- Physical Exam Height [...] EFW (oz) 12 oz EFW by: Hadlock ([id number]) Extended Tibia 25.9 mm 19w 2d 46% Sunny Electrotype Finisher 8.2 mm CM 5.3 mm 64% Nicolaides [...] Profile. Nose. Nasal bone. Heart / Thorax 6-ilqoqd-nhtczgd view. Great vessels. Abdomen Right renal artery. Left renal artery. Extremities / Left hand. Right foot. Left foot. Skeleton Head / Neck other: Cavum Vergae Echocardiogram ----- --------- Situs situs solitus (normal) Cardiac position normal Cardiac axis normal Cardiac size normal (approx. 1/3 of thoracic area) Cardiac rhythm regular (normal) 4-chamber view suboptimal LVOT view suboptimal RVOT view normal 3-vessel view suboptimal 8-mixiks-mpcwury view not examined Aortic arch view suboptimal [...] BEYER : 1990 SEX: F Accession Number: [id number] ORDERING PHYSICIAN: LAURENCE LUNSFORD REFERRING PHYSICIAN: GOLDEN YANG Coding ----- --------- Procedures 39703: Ultrasound, uterus, real time with imagedocumentation, and maternal evaluation plus detailed anatomic examination, transabdominalapproach;single or first gestation 77079: Transvaginal Ultrasound (OB) 58004: Echocardiography, , cardiovascular system, real timewith image documentation (2D), with or without M-mode recording Indication ----- --------- Screening for Anatomic Survey, Screening for cervical length, Screeningfor congenital cardiac abnormality, Pre-existing Type 1 diabetes in , History of prior with delivery,Previous , Obesity in History ----- --------- OB History 3. Para 2 [id number] Maternal Assessment ----- --------- Physical Exam Height [...] Cerebellum tr 21.4 mm 20w 2d 86% Boone Nuchal fold 5.0 mm AC 154.9 mm 20w 5d 79% Hadlock Femur 30.5 mm 19w 3d 38% Hadlock Humerus 29.1 mm 19w 3d 49% Sunny HC / AC 1.08 6% Hadlock EFW 326 g 69% Hadlock EFW (lb) 0 lb EFW (oz) 12 oz EFW by: Hadlock ([id number]) Extended Tibia 25.9 mm 19w 2d 46% Sunny Electrotype Finisher 8.2 mm CM 5.3 mm 64% Nicolaides [...] Profile. Nose. Nasal bone. Heart / Thorax 4-jwlzbn-nspwsyu view. Great vessels. Abdomen Right renal artery. Left renal artery. Extremities / Left hand. Right foot. Left foot. Skeleton Head / Neck other: Cavum Vergae Echocardiogram ----- --------- Situs situs solitus (normal) Cardiac position normal Cardiac axis normal Cardiac size normal (approx. 1/3 of thoracic area) Cardiac rhythm regular (normal) 4-chamber view suboptimal LVOT view suboptimal RVOT view normal 3-vessel view suboptimal 1-ztuamf-smyikza view not examined Aortic arch view suboptimal [...] up with thepatient as necessary. us Laurence Lunsford APRN-[facility] US ORDERABLES Final Result documented in this encounter Visit Diagnoses Diagnosis Type 1 diabetes mellitus in , first trimester- Primary Type 1 diabetes mellitus in , first trimester documented in this encounter
[2024-12-10 07:22] VITALS: BP 119/74; PULSE 80
== END 2024-12-10 07:47 | disposition home or self-care (01) ==
LOC: US 07:01 → FBC 07:02
PROVIDERS: Visit Provider Midwife
DX: O99.283 Endocrine, nutritional and metabolic diseases complicating pregnancy, third trimester (principal); Z3A.35 35 weeks gestation of pregnancy
CPT/HCPCS: 76818; 87081

== ENCOUNTER 2024-12-10 14:50 | Outpatient (REF) | payer OTHER, SELFPAY ==
--- OUTSIDE RECORDS SUMMARY | 2024-11-26 08:30 | XMS_ITS | Encounter Summary ---
Author Organization [facility] Address [address] [place] [address] Care Team Providers Care Transfer And Line Up Worker Name Role Phone Unavailable Primary Care Provider Unavailabl e Reason for Visit * Reason Comments Routine Visit Encounter Details Date Type Department Care Team (Latest Contact Info) Description 11/26/2024 8:30 AM EDT Routine [facility] [address] [place] [phone] Gabriel Mendez DO [address] [facility] [place] [address] 33 weeks gestation of ([facility]); Type 1 diabetes mellitus without complication ([facility]) Social History Tobacco Use Types Packs/Day Years [...] Lantus SoloStar 100 UNIT/ML pen 10 units RO-Ajy-QA-[place]-3 ( Gummies/DHA & FA) 0.4-32.5 MG chewable tablet Oral ReliOn Pen [place] 32G X 4 MM misc USE 5-6 [...] nursing note reviewed. Exam conducted with a maritime officer present. Vitals: Estimated body mass index is 32.97 kg/m?? as calculated from the following: Height as of 05/27/24: 5' 3 . Weight as of this encounter: 186 lb 1.9 oz. BP: 116/74 Patient's last menstrual period was 04/03/2024 (exact date). ASSESSMENT & PLAN ICD-10-CM 1. 33 weeks gestation of ([facility]) Z3A.33 POCT urinalysis dipstick manually resulted 2. Type 1 diabetes mellitus without complication (HCC) E10.9 Patient presents today for a routine obstetrics appointment. Patient is currently 33w0d with a Estimated Date of Delivery: 01/14/25. Patient was previously seen in office to discuss upcoming . Discussed management of delivery with Type I diabetes. Patient voiced that she was contacted by [facility] to setup follow up appointment. Informed patient [...] to scheduled . Patient voiced that her Professor Of Medicine is connected to her pump and able to see her sugar results, specialist reaches out weekly if/not televisit every 2 weeks. Documented by Marielos Mccain LPN on behalf of: Gabriel Mendez DO documented in this encounter Plan of Treatment Upcoming Encounters Date Type Department Care Team (Late st Contact Info) Description 12/17/2024 8:40 AM EDT Routine [facility] [address] [facility] [place] [phone] Senait Chaney PA [address] [facility] [place] [address] documented as of this encounter Goals Goal Patient Goal Type Associated Problems Recent Progress Patient-Stated? Author Reminders Care Plan OB Reminders No Open Scheduling, Background documented as of this encounter Procedures Procedure Name Priority Date/Time Associated Diagnosis Comments POCT URINALYSIS DIPSTICK Routine 11/26/2024 9:09 AM EDT 33 weeks gestation of ([facility]) documented in this encounter Results * (ABNORMAL) [...] Visit Diagnoses Diagnosis 33 weeks gestation of ([facility]) Type 1 diabetes mellitus without complication ([facility]) Type I (juvenile type) diabetes mellitus without mention of complication, not stated as uncontrolled documented in this encounter Additional Health Concerns Active Problems Noted Date Diagnosed Date OB Reminders 07/14/2024 documented as of this encounter
--- OUTSIDE RECORDS SUMMARY | 2024-12-10 08:30 | XMS_ITS | Encounter Summary ---
Author Organization [facility] Address [address] [place] [address] Care Team Providers Care Cloth Colors Examiner Name Role Phone Unavailable Primary Care Provider Unavailabl e Reason for Visit * Reason Comments Routine Visit Encounter Details Date Type Department Care Team (Late st Contact Info) Description 12/10/2024 8:30 AM EDT Routine [facility] [address] [phone] Gabriel Mendez DO [address] Ehsan [place], [facility] Third trimester ([facility]); 35 weeks gestation of ([facility]) Social History Tobacco Use Types Packs/Day [...] Sign Reading Time Taken Comments Blood Pressure 114/70 12/10/2024 8:37 AM EDT Pulse - - Temperature - - Respiratory Rate - - Oxygen Saturation - - Inhaled Oxygen Concentration - - Weight 85.7 kg (189 lb) 12/10/2024 8:37 AM EDT Height - - Body Mass Index 33.48 05/27/2024 8:49 AM EST documented in this encounter Plan of Treatment Upcoming Encounters Date Type Department Care Team (Late st Contact Info) Description 12/17/2024 8:40 AM EDT Routine [facility] [address] [place] [address] Senait Chaney PA [address] [facility] [place] [address] Scheduled Orders Name Type Priority Associated Diagnoses Orde r Schedule CULTURE, GROUP B STREP WITH SUSCEPTIBLITY Lab Routine Third trimester ([facility]) Expected: 12/10/2024, Expires: 12/10/2025 documented as of this encounter Goals Goal Patient Goal Type Associated Problems Recent Progress Patient-Stated? Author Reminders Care Plan OB Reminders No Open Scheduling, Background documented as of this encounter Procedures Procedure Name Priority Date/Time Associated Diagnosis Comments POCT URINALYSIS DIPSTICK Routine 12/10/2024 8:48 AM EDT Third trimester ([facility]) documented in this encounter Results * (ABNORMAL) POCT urinalysis dipstick manually resulted (12/10/2024 8:48 AM EDT) Color, UA Yellow Clarity, UA Clear Glucose, UA Negative Negative - 2000(110) ++++ mg/dL Bilirubin, UA Negative Negative - 4(70) +++ mg/dL Ketones, UA Negative Negative - 160(16) ++++ mg/dL Spec Grav, UA 1.005 1 - 1.03 Blood, UA Positive Negative - 50 Bahman/mcL pH, UA 7.0 5 - 9 Protein, UA Negative Negative - 2000(20) ++++ mg/dL Urobilinogen, UA 1.0 0.2 - 12 mg/dL Leukocytes, UA Negative Negative - 500+++ Leisa/mcL Nitrite, UA Negative Negative - Positive Urine 12/10/2024 8:48 AM EDT Gabriel Vanessa DO POINT OF CARE TEST ENTER/EDIT OR DERABLES Final Result documented in this encounter Visit Diagnoses Diagnosis Third trimester ([facility]) state, incidental 35 weeks gestation of ([facility]) documented in this encounter Additional Health Concerns Active Problems Noted Date Diagnosed Date OB Reminders 07/14/2024 documented as of this encounter
--- OUTSIDE RECORDS SUMMARY | 2024-12-10 14:54 | XMS_ITS | Encounter Summary ---
Author Organization [facility] Address [address] [place] [address] Care Team Providers Care Kilnman Name Role Phone Unavailable Primary Care Provider Unavailabl e Encounter Details Date Type Department Care Team (Late Contact Info) Description 11/26/2024 Bamboo flowsheet [facility] [address] [facility] [address] [place] [address] Gabriel Mendez DO [address] [facility] [address] Ehsan [place], [place] [address] Social History Tobacco Use Types Packs/Day Years [...] Department Care Team (Late Contact Info) Description 12/17/2024 8:40 AM EDT Routine [facility] [address] [facility] [place] [address] Senait Chaney PA [address] [facility] [address] [facility] [address] [place], [facility]11 documented as of this encounter Goals Goal Patient Goal Type Associated Problems Recent Progress Patient-Stated? Author Reminders Care Plan OB Reminders No Open Scheduling, Background documented as of this encounter Visit Diagnoses Not on filedocumented in this encounter Additional Health Concerns Active Problems Noted Date Diagnosed Date OB Reminders 07/14/2024 documented as of this encounter
--- OUTSIDE RECORDS SUMMARY | 2024-12-10 14:54 | XMS_ITS | Encounter Summary ---
Author Organization [facility] Address [id number] [address] [place] [address] Care Team Providers Care Business Applications Specialist Name Role Phone Unavailable Primary Care Provider Unavailabl e Encounter Details Date Type Department Care Team (Late Contact Info) Description 06/05/2024 Orders Only Maternal- Medicine at [facility] [address] [place] [phone] Ref Prov, [place] [address] Social History Tobacco Use Types Packs/Day Years [...] 8:00 AM EDT Telemedicine Maternal- Medicine at [facility] [address] [place] [phone] Chad Gregg MD [address], [address] [place] [address] documented as of this encounter Visit Diagnoses Not on filedocumented in this encounter
--- OUTSIDE RECORDS SUMMARY | 2024-12-10 14:54 | XMS_ITS | Encounter Summary ---
Author Organization [facility] Address [address] [facility] [place] [address] Care Team Providers Care Chuck Wagon Driver Name Role Phone Unavailable Primary Care Provider Unavailabl e Encounter Details Date Type Department Care Team (Late Contact Info) Description 11/26/2024 Results Follow-Up [facility] [address] [place] [address] Floridalma [place], [place] [address] [place] [address] OB GROWTH Social History Tobacco Use Types [...] Description 12/17/2024 8:40 AM EDT Routine [facility] [place] [address] [facility] [place] [phone] Senait Chaney PA [address] [facility] [address] [place], [place] [id number] documented as of this encounter Goals Goal Patient Goal Type Associated Problems Recent Progress Patient-Stated? Author Reminders Care Plan OB Reminders No Open Scheduling, Background documented as of this encounter Visit Diagnoses Not on filedocumented in this encounter Additional Health Concerns Active Problems Noted Date Diagnosed Date OB Reminders 07/14/2024 documented as of this encounter
--- OUTSIDE RECORDS SUMMARY | 2024-12-10 14:54 | XMS_ITS | Encounter Summary ---
Author Organization [facility] Address [address] [place] [address] Care Team Providers Care Entry Level Management Name Role Phone Unavailable Primary Care Provider Unavailabl e Encounter Details Date Type Department Care Team (Late Contact Info) Description 11/23/2024 Results [facility] [address] [place] [address] Floridalma Thomas, [place] [address] [place] [address] OB BPP W NON-STRESS Social History Tobacco [...] 12/17/2024 8:40 AM EDT Routine [facility] [address] [facility] [address] Senait Chaney PA [address] [facility] [address] [place], [place] [id number] documented as of this encounter Goals Goal Patient Goal Type Associated Problems Recent Progress Patient-Stated? Author Reminders Care Plan OB Reminders No Open Scheduling, Background documented as of this encounter Visit Diagnoses Not on filedocumented in this encounter Additional Health Concerns Active Problems Noted Date Diagnosed Date OB Reminders 07/14/2024 documented as of this encounter
--- OUTSIDE RECORDS SUMMARY | 2024-12-10 14:54 | XMS_ITS | Encounter Summary ---
Author Organization [facility] Address [address] [place] [address] Care Team Providers Care Applied Psychology Teacher Name Role Phone Unavailable Primary Care Provider Unavailabl e Encounter Details Date Type Department Care Team (Late Contact Info) Description 12/10/2024 Bamboo flowsheet [facility] [address] [facility] [place] [address] Gabriel Mendez DO [address] [facility] [address] Ehsan [place], [place] [address] Social History Tobacco Use Types Packs/Day Years [...] 8:40 AM EDT Routine [facility] [address] [facility] [place] [address] Senait Chaney PA [address] [facility] [address] [place], [facility]11 documented as of this encounter Goals Goal Patient Goal Type Associated Problems Recent Progress Patient-Stated? Author Reminders Care Plan OB Reminders No Open Scheduling, Background documented as of this encounter Visit Diagnoses Not on filedocumented in this encounter Additional Health Concerns Active Problems Noted Date Diagnosed Date OB Reminders 07/14/2024 documented as of this encounter
--- OUTSIDE RECORDS SUMMARY | 2024-12-10 14:54 | XMS_ITS | Encounter Summary ---
Author Organization [facility] Address [address] [facility] [place] [address] Care Team Providers Care Welding Estimator Name Role Phone Unavailable Primary Care Provider Unavailabl e Encounter Details Date Type Department Care Team (Late Contact Info) Description 07/14/2024 Abstract [facility] [address] [place] [phone] Floridalma Thomas CN [address] [place] [address] Social History Tobacco Use Types Packs/Day Years [...] Info) Description 12/17/2024 8:40 AM EDT Routine [facility] [place] [facility] [address] [place] [address] Senait Chaney PA [address] [facility] [address] [facility] [address] [place], [place] [id number] documented as of this encounter Goals Goal Patient Goal Type Associated Problems Recent Progress Patient-Stated? Author Reminders Care Plan OB Reminders No Open Scheduling, Background documented as of this encounter Visit Diagnoses Not on filedocumented in this encounter Additional Health Concerns Active Problems Noted Date Diagnosed Date OB Reminders 07/14/2024 documented as of this encounter
--- OUTSIDE RECORDS SUMMARY | 2024-12-10 14:54 | XMS_ITS | Encounter Summary ---
Author Organization [employer] Address [facility][id number] [address] [place] [address] Care Team Providers Care Material Assembler Name Role Phone Unavailable Primary Care Provider Unavailabl e Encounter Details Date Type Department Care Team (Late st Contact Info) Description 12/02/[address] [address] [facility] [address] [place] [address] Shireen Lopez, RN Social History [...] Dr Pride and would like to reschedule. Bulkhead Carpenter telephoned pt, received voicemail. Asked patient to call our office to get rescheduled either for a MyChart visit or in person. Contact information given. documented in this encounter Plan of Treatment Upcoming Encounters Date Type Department Care Team (Late st Contact Info) Description 12/14/2024 8:00 AM EDT Telemedicine Maternal- Medicine at [facility] [address] [place] [phone] Chad Gregg MD [address], [address] [place] [address] documented as of this encounter Visit Diagnoses Not on filedocumented in this encounter
--- OUTSIDE RECORDS SUMMARY | 2024-12-10 14:54 | XMS_ITS | Encounter Summary ---
Author Organization [facility] Address [address], [address] [place] [address] Care Team Providers Care Fund Development Manager Name Role Phone Unavailable Primary Care Provider Unavailabl e Encounter Details Date Type Department Care Team (Late st Contact Info) Description 02/03/2020 Orders Only [address] [place] [address] Uncontrolled type 1 diabetes mellitus [...] <1.20 <2.0 mg/dL 02/03/2020 1:00 PM EDT [facility] Creatinine, Ur 259.3(H) 28.0 - 259.0 mg/dL 02/03/2020 1:00 PM EDT [facility] Albumin/Creatinin e Ratio see below 0.0 - 30.0 mg/g 02/03/2020 1:00 PM EDT [facility] Comment: Ratio cannot be calculated since microalbumin level is below the lower detection limit. URINE SPECIMEN / Unknown 02/03/2020 8:48 AM EDT 02/03/2020 11:18 AM EDT Narrative [facility] - 02/03/2020 1:13 PM EDT Performed at: [facility] [address] [place] [address] us Stefany Tariq MD URINE ORDERABLES Final Result [facility] [address] [place] [address], [facility] [phone] * (ABNORMAL) Comprehensive Metabolic Panel (02/03/2020 8:38 AM EDT) Sodium 142 136 - 145 mmol/L 02/03/2020 12:40 PM EDT [facility] Potassium 4.1 3.5 - 5.1 mmol/L 02/03/2020 12:40 PM EDT [facility] Chloride 106 99 - 110 mmol/L [...] - 37 U/L 02/03/2020 12:40 PM EDT [facility] Globulin 2.5 g/dL 02/03/2020 12:40 PM EDT [facility] BLOOD SPECIMEN / Unknown 02/03/2020 8:38 AM EDT 02/03/2020 11:17 AM EDT [facility] - 02/03/2020 1:09 PM EDT Performed at: [facility] [address] [place] [address] us Stefany Tariq MD CHEMISTRY ORDERABLES Final Resu lt [facility] [address] [place] [address] * Hemoglobin A1C (02/03/2020 8:38 AM EDT) Hemoglobin A1C 7.9 See comment % 02/03/2020 1:21 PM EDT [facility] Comment: Comment: Diagnosis of Diabetes: > or = 6.5% Increased risk of diabetes (Prediabetes): 5.7-6.4% Glycemic Control: Non Adults: <7.0% : <6.0% Estimated Avg Glucose 180.0 mg/dL 02/03/2020 1:21 PM EDT [facility] BLOOD SPECIMEN / Unknown 02/03/2020 8:38 AM EDT 02/03/2020 11:17 AM EDT [facility] - 02/03/2020 1:21 PM EDT Performed at: [facility] [address] [place] [address] us Stefany Tariq MD CHEMISTRY ORDERABLES Final Resu lt Performing Organization Address City/[facility]/ZIP Co de Phone Number [facility] [address] [place] [address] * (ABNORMAL) Lipid Panel (02/03/2020 8:38 AM EDT) Cholesterol, Total 213(H) 0 - 199 mg/dL 02/03/2020 12:40 PM EDT [facility] Triglycerides 73 0 - 150 mg/dL 02/03/20 20 12:40 PM EDT [facility] HDL 97(H) 40 - 60 mg/dL 02/03/2020 12:40 PM EDT [facility] LDL Calculated 101(H) <100 mg/dL 02/03/2020 12:40 PM EDT [facility] VLDL Cholesterol Calculated 15 Not Established mg/dL 02/03/2020 12:40 PM EDT [facility] BLOOD SPECIMEN / Unknown 02/03/2020 8:38 AM EDT 02/03/2020 11:17 AM EDT Narrative [facility] - 02/03/2020 1:09 PM EDT Performed at: [facility] [address], [place] [address] us Stefany Tariq MD CHEMISTRY ORDERABLES Final Resu lt [facility] [address] [place] [address], [facility] [phone] documented in this encounter Visit Diagnoses Diagnosis Uncontrolled type 1 diabetes mellitus with hyperglycemia (HCC) Hypercholesterolemia Pure hypercholesterolemia documented in this encounter
--- OUTSIDE RECORDS SUMMARY | 2024-12-10 14:54 | XMS_ITS | Encounter Summary ---
Author Organization [facility] Address [address] [place] [address] Care Team Providers Care Property Supervisor Name Role Phone Unavailable Primary Care Provider Unavailabl e Encounter Details Date Type Department Care Team (Late Contact Info) Description 11/26/2024 Results [facility] [address] [place] [address] Floridalma Thomas, JONES [address] [place] [address] OB BPP W NON-STRESS Social History Tobacco [...] AM EDT Routine [facility] [address] [place] [address] Senait Chaeny PA [address] [facility] [address] [place], [place] [phone] documented as of this encounter Goals Goal Patient Goal Type Associated Problems Recent Progress Patient-Stated? Author Reminders Care Plan OB Reminders No Open Scheduling, Background documented as of this encounter Visit Diagnoses Not on filedocumented in this encounter Additional Health Concerns Active Problems Noted Date Diagnosed Date OB Reminders 07/14/2024 documented as of this encounter
--- OUTSIDE RECORDS SUMMARY | 2024-12-10 14:54 | XMS_ITS | Clinical Summary ---
Author Organization [facility] Address [id number] [address] [place] [address] Care Team Providers Care Industrial Education Teacher Name Role Phone Unavailable Primary Care [...] 200 100 strip 6 5 Active insulin roller setter cart,aut,G6/7, cntr (OMNIPOD 5 G6-G7 INTRO KT,GEN5,) cartridgeIndic ations:Type 1 diabetes mellitus in , first trimester Inject 1 each under the skin every 3 (three) days. 1 each 5 Active blood-glucose, range management specialist,cont (DEXCOM G7 BRICK MOLDER HAND) miscIndication s:Type 1 diabetes mellitus during in [...] Team Description 12/08/2024 Orders Only [facility] [address] [place] [address] Dolores Pride MD 12/03/2024 Orders Only [facility] [address] [place] [address] Dolores Pride MD 12/02/2024 Telephone [facility] [address] [place] [address] Shireen Lopez RN 11/23/2024 Orders Only [facility] [address] [place] [address] Dolores Pride MD 11/19/2024 9:15 AM EDT Telemedicine [facility] [address] [place] [address] Dolores Pride MD Type 1 diabetes mellitus during in third trimester (Primary Dx) 11/19/2024 Travel 11/17/2024 Telephone Maternal- Medicine at [address] [phone] Michelle Siegel RN 11/09/2024 Orders Only [facility] [address] [place] [address] Dolores Pride MD 11/09/2024 Telephone [facility] [address] [place] [address] Keeley Robles CMA 11/05/2024 11:00 AM EDT Telemedicine [facility] [address] [place] [address] Dolores Pride MD Type 1 diabetes mellitus during in third trimester (Primary Dx) 11/05/2024 Travel 11/02/2024 Travel 10/26/2024 12:00 PM EDT Telemedicine [facility] [address] [place] [address] Dolores Pride MD Type 1 diabetes mellitus during in second trimester (Primary Dx) 10/26/2024 Travel 10/21/2024 Orders Only Maternal- Medicine at [address] [phone] Chad Gregg MD Type 1 diabetes mellitus during in second trimester 10/21/2024 Documentation Maternal- Medicine at [address] [place] [address] Treasure Freeman, CAMPOS 10/20/2024 Telephone Maternal- Medicine at [facility] [address] [place] [address] Shireen Lopez RN 10/15/2024 11:00 AM EDT Telemedicine [facility] [address] [place] [address] Dolores Pride MD Type 1 diabetes mellitus during in second trimester (Primary Dx) 10/14/2024 Travel 10/07/2024 Orders Only [facility] [address] [place] [address] Dolores Pride MD 10/06/2024 Orders Only [facility] [address] [facility] [facility] [address] Dolores Pride MD 10/01/2024 10:00 AM EDT Telemedicine [facility] [address] [place] [address] Dolores Pride MD Type 1 diabetes mellitus during in second trimester 09/30/2024 Travel 09/24/2024 8:00 AM EDT Telemedicine [facility] [address] [facility] [facility] [address] Dolores Pride MD Type 1 diabetes mellitus during in second trimester (Primary Dx) 09/23/2024 Travel 09/09/2024 Orders Only [facility] [address] [place] [address] Dolores Pride MD 09/09/2024 Telephone [facility] [address] [place] [address] Shireen Lopez RN from Last 3 Months [...] 8:00 AM EDT Telemedicine Maternal- Medicine at [facility] [address] [place] [address] Chad Gregg MD [address] [place] [address] Health Maintenance Due Date Last Done Comments [...]
--- OUTSIDE RECORDS SUMMARY | 2024-12-10 14:54 | XMS_ITS | Clinical Summary ---
Author Organization [facility] Address [address], [address] [place] [address] Care Team Providers Care Environmental Services Project Manager Name Role Phone Unavailable Primary Care Provider Unavailabl e Allergies No known active allergies Medications Continuous Blood Gluc Air Drill Operator (FREESTYLE ILIANA 2 READER SYSTM) DEVIIndications:Un controlled [...] Description 10/14/2024 Transcribe Orders [facility] [address] [place], [place] [phone] Floridalma Thomas APRN - CNM Amniotic fluid [...] Ur <1.20 <2.0 mg/dL 05/11/2020 4:06 PM [facility] Creatinine, Ur 111.9 28.0 - 259.0 mg/dL 05/11/2020 4:06 PM [facility] Albumin/Creatinin e Ratio see below 0.0 - 30.0 mg/g 05/11/2020 4:06 PM [facility] Comment: Ratio cannot be calculated since microalbumin level is below the lower detection limit. URINE SPECIMEN / Unknown 05/11/2020 8:21 AM EST 05/11/2020 3:11 PM EST Narrative [facility] - 05/11/2020 4:26 PM EST Performed at: [facility] [address] [place] [place] [address] us Stefany Tariq MD URINE ORDERABLES Final Result Performing Organization Address City/[facility]/ZIP Co de Phone Number [facility] [address] [place] [address], [facility] [phone] * (ABNORMAL) Lipid Panel (05/11/2020 8:11 AM EST) Cholesterol, Total 198 0 - 199 mg/dL 05/11/2020 3:45 PM EST [facility] Triglycerides 100 0 - 150 mg/dL 05/11/19 3:45 PM EST [facility] HDL 95(H) 40 - 60 mg/dL 05/11/2020 3:45 PM EST [facility] LDL Calculated 83 <100 mg/dL 05/11/2020 3:45 PM EST [facility] VLDL Cholesterol Calculated 20 Not Established mg/dL 05/11/2020 3:45 PM EST [facility] BLOOD SPECIMEN / Unknown 05/11/2020 8:11 AM EST 05/11/2020 3:11 PM EST Narrative [facility] - 05/11/2020 4:12 PM EST Performed at: [facility] [address] [place] [address] us Stefany Tariq MD CHEMISTRY ORDERABLES Final Resu lt Performing Organization Address City/[facility]/ZIP Co de Phone Number [facility] [address] [place] [address], [facility] [phone] * Comprehensive Metabolic Panel (05/11/2020 8:11 AM EST) Sodium 140 136 - 145 mmol/L 05/11/2020 3:45 PM [facility] Potassium 4.6 3.5 - 5.1 mmol/L 05/11/2020 3:45 PM [facility] Chloride 101 99 - 110 mmol/L 05/11/2020 3:45 PM [facility] CO2 27 21 - 32 mmol/L 05/11/2020 3:45 PM [facility] Anion Gap 12 3 - 16 05/11/2020 3:45 PM [facility] Glucose 97 70 - 99 mg/dL 05/11/2020 3:45 PM [facility] BUN 11 7 - 20 mg/dL 05/11/2020 3:45 PM [facility] Creatinine 0.6 0.6 - 1.1 mg/dL 05/11/2020 3:45 PM [facility] GFR Non- >60 >60 05/11/2020 3:45 PM [facility] Comment: >60 mL/min/1.73m2 EGFR, calc. for ages 18 and older using the MDRD formula (not corrected for weight), is valid for stable renal function. GFR >60 >60 05/11/2020 3:45 PM [facility] Comment: Chronic Kidney Disease: less than 60 ml/min/1.73 sq.m. Kidney Failure: less than 15 ml/min/1.73 sq.m. Results valid for patients 18 years and older. Calcium 9.7 8.3 - 10.6 mg/dL 05/11/2020 3:45 PM [facility] Total Protein 6.7 6.4 - 8.2 g/dL 05/11/2020 3:45 PM [facility] Albumin 4.1 3.4 - 5.0 g/dL 05/11/2020 3:45 PM [facility] Albumin/Globulin Ratio 1.6 1.1 - 2.2 05/11/2020 3:45 PM [facility] Total Bilirubin 0.4 0.0 - 1.0 mg/dL 05/11/2020 3:45 PM [facility] Alkaline Phosphatase 69 40 - 129 U/L 05/11/2020 3:45 PM EST [facility] ALT 20 10 - 40 U/L 05/11/2020 3:45 PM EST [facility] AST 24 15 - 37 U/L 05/11/2020 3:45 PM EST [facility] Globulin 2.6 g/dL 05/11/2020 3:45 PM EST [facility] BLOOD SPECIMEN / Unknown 05/11/2020 8:11 AM EST 05/11/2020 3:11 PM EST [facility] - 05/11/2020 4:26 PM EST Performed at: [facility] [address] [place] [place] [address] us Stefany Tariq MD CHEMISTRY ORDERABLES Final Resu lt Performing Organization Address City/State/[facility] Co de Phone Number [facility] [address] [place] [address] * PAP SMEAR (06/13/2018 9:00 AM EST) 06/13/2018 9:00 AM EST 06/16/2018 7:42 AM EST [facility] - 06/18/2018 3:46 [place] [address] Ph. [phone] Department of Pathology FINAL CYTOLOGY PAP REPORT Patient Name: ALYSE PATEL Accession No: [id number] Age Sex: 1990 27 Y / F [place] [facility] [place] No: [id number] Collected: 06/13/2018 Med Rec No: [id number] Received: 06/16/2018 Attend Phys: HAZEL RAMOS MD Completed: 06/18/2018 Perform Phys: HAZEL RAMOS MD GENERAL CATEGORIZATION: Negative for Intraepithelial Lesion or Malignancy SPECIMEN ADEQUACY: Satisfactory for Evaluation. Endocervical cells/transformation zone component present. Specimen: THINPREP LIQUID BASE IMAGED DIAGNOSTIC, CERVICAL ENDOCERVICAL History: No Prior Abnormal Smear: No CPT: Technical: 43599 X1 Case signed out at [facility], [address] [address] Specimen was processed and screened at [facility], [address] [address] Our Cytology Laboratory uses the ThinPrep Radio Disc Jockey to automatically screen all ThinPrep Pap smears. The ThinPrep Radio Disc Jockey is approved by the FDA for this purpose, and enables our laboratory to apply a single quality director standard on these Pap smears. Upon initial screening of cases, this instrument identifies cases requiring additional manual review or additional quality director rescreening. Cervical cytology is a screening test [...] Vang MD PATHOLOGY/CYTOLOGY ORDERA BLES Final Result [facility] [address] [place] [address] * Hepatitis C Antibody (06/07/2017 9:16 AM EST) Hep C Ab Interp Non-reacti ve Non-reacti ve 06/07/2017 9:07 PM EST [facility] 06/07/2017 9:16 AM EST 06/07/2017 4:46 PM EST Hazel Vang MD IMMUNOLOGY ORDERABLES Fin al Result [facility] * HIV Screen (06/07/2017 9:16 AM [...] on file Type:Not on file Address: [address] [phone] Advance Directives * Full Code (Latest Code Status on File) Date Activated Date Inactivated Comments 08/20/2016 6:44 PM 08/23/2016 2:21 PM * Full Code Date Activated Date Inactivated Comments 08/20/2016 5:42 PM 08/20/2016 6:44 PM
--- OUTSIDE RECORDS SUMMARY | 2024-12-10 14:54 | XMS_ITS | Encounter Summary ---
Author Organization [facility] Address [address] [place] [address] Care Team Providers Care Restaurant Service Manager Name Role Phone Unavailable Primary Care Provider Unavailabl e Encounter Details Date Type Department Care Team (Late Contact Info) Description 12/07/2024 Results [facility] [address] [place] [address] Floridalma Thomas, JONES [address] [place] [address] OB BPP W NON-STRESS Social History Tobacco [...] AM EDT Routine [facility] [address] [place] [address] Senait Chaney PA [address] [facility] [address] [place], [place] [phone] documented as of this encounter Goals Goal Patient Goal Type Associated Problems Recent Progress Patient-Stated? Author Reminders Care Plan OB Reminders No Open Scheduling, Background documented as of this encounter Visit Diagnoses Not on filedocumented in this encounter Additional Health Concerns Active Problems Noted Date Diagnosed Date OB Reminders 07/14/2024 documented as of this encounter
--- OUTSIDE RECORDS SUMMARY | 2024-12-10 14:54 | XMS_ITS | Encounter Summary ---
Author Organization [facility] [email or web address] [facility] tem Address [id number] [address] [place] [address] Care Team Providers Care Director Engineering Name Role Phone Unavailable Primary Care Provider Unavailabl e Encounter Details Date Type Department Care Team ([facility] Contact Info) Description 07/15/2024 Orders Only Maternal- Medicine at [facility] [address] [place] [address] Rayne Potts RN Type 1 diabetes mellitus in [...] 8:00 AM EDT Telemedicine Maternal- Medicine at [facility] [address] [place] [address] Chad Gregg MD [address] [place] [address] documented as of this encounter Procedures Procedure [...] 6.7 MANUALLY TRANSCRIBED RESULTS Blood 07/04/2024 [facility]OR[facility] BLOOD ORDERABLES Fi nal Result MANUALLY TRANSCRIBED RESULTS documented in this encounter Visit Diagnoses Diagnosis Type 1 diabetes mellitus in , first trimester documented in this encounter
--- OUTSIDE RECORDS SUMMARY | 2024-12-10 14:54 | XMS_ITS | Encounter Summary ---
Author Organization [facility] Address [address] [place] [address] [address] Care Team Providers Care Door Patcher Name Role Phone Unavailable Primary Care Provider Unavailabl e Encounter Details Date Type Department Care Team (Late st Contact Info) Description 11/26/2024 Clinisync Result Encounter [facility] External Department Unsolicited Golden Thomas, CNM [address] [place] [address] Social History Tobacco Use Types Packs/Day Years [...] AM EDT Routine [facility] [place] [facility] [address] [address] Senait Chaney PA [address] [place], [facility] documented as of this encounter Goals [...] PM EDT Narrative 11/26/2024 1:28 [place] [address] Ultrasound Report Signed Patient: ALYSE MUNGUIA MR#: [id number] : 1990 Acct:[id number] Age/Sex: 34 / F ADM Date: 11/26/24 Loc: US Attending Dr: GOLDEN THOMAS APRN, CNM Ordering Physician: GOLDEN THOMAS APRN, CNM Date of Service: 11/26/24 Procedure(s): US OB growth Accession Number(s): [id number] cc: GOLDEN THOMAS APRN, CNM; Physician,Non-Staff M.D. The [place] [address] Patient Name: ALYSE MUNGUIA MRN: [id number] date: 1990 Sex: F Assigned Patient Location: [facility] Current Patient Location: Accession/Order Number: [id number] Exam Date: 11/26/2024 13:23 Report Date: 11/26/2024 [...] Jr., D.O. 11/26/2024 1:25 PM Dictation Location: [place] [address] Electronically authenticated by: [id number] Y Date: 11/26/2024 13:25 Dictated By: Luc Echeverria M.D. Signed By: 11/26/24 1328 DD/ 1325 TD/TT: Quarry Supervisor: Procedure Note Radiology, Radiologist, MD - 11/26/2024 [place] [address] Ultrasound Report Signed Patient: MOLLY MUNGUIA#: [id number] : 1990Acct:[id number] Age/Sex: 34 / FADM Date: 11/26/24 Loc: US Attending Dr: GOLDEN THOMAS APRN, CNM Ordering Physician: GOLDEN THOMAS APRN, CNM Date of Service: 11/26/24 Procedure(s): US OB growth Accession Number(s): [id number] cc: GOLDEN THOMAS APRN, CNM; Physician,Non-Staff Vanessa [facility] [place] [id number] Patient Name: ALYSE MUNGUIA MRN: [id number] date: 1990 Sex: F Assigned Patient Location: [facility] Current Patient Location: Accession/Order Number: [id number] Exam Date: 11/26/2024 13:23 Report Date: 11/26/2024 [...] growth. Impression dictated by: Luc Echeverria Jr., D.OToyn 11/26/2024 1:25 PM Dictation [facility] Electronically authenticated by: [id number] Y Date: 3:25 Dictated By: Luc Echeverria M.D. Signed By:11/26/24 1328 DD/ 1325 TD/TT: Quarry Supervisor: us Golden Thomas CNM [facility] Final Resu lt documented in this encounter Visit Diagnoses Not on filedocumented in this encounter Additional Health Concerns Active Problems Noted Date Diagnosed Date OB Reminders 07/14/2024 documented as of this encounter
--- OUTSIDE RECORDS SUMMARY | 2024-12-10 14:54 | XMS_ITS | Encounter Summary ---
Author Organization [facility] Address [address] [place] [address] [place] [address] Care Team Providers Care Highway Patrol Officer Name Role Phone Unavailable Primary Care Provider Unavailabl e Encounter Details Date Type Department Care Team (Late st Contact Info) Description 05/05/2024 Orders Only [facility] [place] [facility] [address] [place] [phone] Floridalma Thomas CN [address] [place] [address] Amenorrhea Social History Tobacco Use Types Packs/Day [...] 8:40 AM EDT Routine [facility] MOLINA [address] [facility] [place] [address] Senait Chaney PA [address] [place] [address] Scheduled Orders Name Type Priority Associated Diagnoses Orde r Schedule US OB transvaginal Imaging Routine Amenorrhea Expected: 05/05/2024, Expires: 05/05/2025 documented as of this encounter Visit Diagnoses Diagnosis Amenorrhea Absence of menstruation documented in this encounter
--- OUTSIDE RECORDS SUMMARY | 2024-12-10 14:54 | XMS_ITS | Encounter Summary ---
Author Organization [employer] tem Address [facility]-[id number] [address] [place] [address] Care Team Providers Care Ballistics Tester Name Role Phone Unavailable Primary Care Provider Unavailabl e Reason for Referral * Diagnostic Imaging (Routine) - Pending Review Specialty Diagnoses / Procedures Referred By Contsilverio t Referred To Contact Maternal and Medicine Diagnoses Type 1 diabetes mellitus in , first trimester Procedures US [facility] with or without consult Laurence Lunsford APRN-CNP [address] [place] [address] Phone: tel: fax: Maternal- Medicine at [address] [address] Phone: tel: fax: Referral ID Status Reason Start Date Expiration Date V isits Requested Visits Authorized [id number] Pending Review 06/18/2024 06/18/2025 1 1 Encounter Details Date Type Department Care Team (Late st Contact Info) Description 06/18/2024 Orders Only Maternal- Medicine at [place] [address] [place] [phone] Mahnaz Lopez, CATIA DESIGNER Type 1 diabetes mellitus in , first [...] 8:00 AM EDT Telemedicine Maternal- Medicine at [facility] [address] [place] [address] Chad Gregg MD [address], [address] [place] [address] documented as of this encounter Results * US MFM COMPREHENSIVE ANATOMIC SURVEY (08/24/2024 9:37 AM EDT) Anatomical Region Laterality Modality OB-DOG CONTROL OFFICER Ultrasound 08/24/2024 8:13 AM EDT Narrative 08/24/2024 10:55 AM EDT NAME: SERENA BEYER : 1990 SEX: F Accession Number: [id number] ORDERING PHYSICIAN: LAURENCE LUNSFORD REFERRING PHYSICIAN: GOLDEN YANG Coding ----- --------- Procedures 37850: Ultrasound, uterus, real time with image documentation, and maternal evaluation plus detailed anatomic examination, transabdominal approach;single or first gestation 43926: Transvaginal Ultrasound (OB) 99604: Echocardiography, , cardiovascular system, real time with image documentation (2D), with or without M-mode recording Indication ----- --------- Screening for Anatomic Survey, Screening for cervical length, Screening for congenital cardiac abnormality, Pre-existing Type 1 diabetes in , History of prior with delivery, Previous , Obesity in History ----- --------- OB History 3. Para 2 [id number] Maternal Assessment ----- --------- Physical Exam Height [...] EFW (oz) 12 oz EFW by: Hadlock ([id number]-FL) Extended Tibia 25.9 mm 19w 2d 46% Sunny Special Events Planner 8.2 mm CM 5.3 mm 64% Nicolaides [...] Profile. Nose. Nasal bone. Heart / Thorax 5-secyto-sdcxvkz view. Great vessels. Abdomen Right renal artery. Left renal artery. Extremities / Left hand. Right foot. Left foot. Skeleton Head / Neck other: Cavum Vergae Echocardiogram ----- --------- Situs situs solitus (normal) Cardiac position normal Cardiac axis normal Cardiac size normal (approx. 1/3 of thoracic area) Cardiac rhythm regular (normal) 4-chamber view suboptimal LVOT view suboptimal RVOT view normal 3-vessel view suboptimal 3-nkymat-rubhjeu view not examined Aortic arch view suboptimal [...] BEYER : 1990 SEX: F Accession Number: [id number] ORDERING PHYSICIAN: LAURENCE LUNSFORD REFERRING PHYSICIAN: GOLDEN YANG Coding ----- --------- Procedures 89406: Ultrasound, uterus, real time with imagedocumentation, and maternal evaluation plus detailed anatomic examination, transabdominalapproach;single or first gestation 23779: Transvaginal Ultrasound (OB) 59973: Echocardiography, , cardiovascular system, real timewith image documentation (2D), with or without M-mode recording Indication ----- --------- Screening for Anatomic Survey, Screening for cervical length, Screeningfor congenital cardiac abnormality, Pre-existing Type 1 diabetes in , History of prior with delivery,Previous , Obesity in History ----- --------- OB History 3. Para 2 [id number] Maternal Assessment ----- --------- Physical Exam Height [...] Cerebellum tr 21.4 mm 20w 2d 86% [place] Nuchal fold 5.0 mm AC 154.9 mm 20w 5d 79% Hadlock Femur 30.5 mm 19w 3d 38% Hadlock Humerus 29.1 mm 19w 3d 49% Sunny HC / AC 1.08 6% Hadlock EFW 326 g 69% Hadlock EFW (lb) 0 lb EFW (oz) 12 oz EFW by: Hadlock ([id number]-FL) Extended Tibia 25.9 mm 19w 2d 46% Sunny Special Events Planner 8.2 mm CM 5.3 mm 64% Nicolaides [...] Profile. Nose. Nasal bone. Heart / Thorax 3-awhgbl-linddiw view. Great vessels. Abdomen Right renal artery. Left renal artery. Extremities / Left hand. Right foot. Left foot. Skeleton Head / Neck other: Cavum Vergae Echocardiogram ----- --------- Situs situs solitus (normal) Cardiac position normal Cardiac axis normal Cardiac size normal (approx. 1/3 of thoracic area) Cardiac rhythm regular (normal) 4-chamber view suboptimal LVOT view suboptimal RVOT view normal 3-vessel view suboptimal 3-ahjjnr-nolaokz view not examined Aortic arch view suboptimal [...] with thepatient as necessary. us Laurence Lunsford [facility] US ORDERABLES Final Result documented in this encounter Visit Diagnoses Diagnosis Type 1 diabetes mellitus in , first trimester- Primary Type 1 diabetes mellitus in , first trimester documented in this encounter
--- OUTSIDE RECORDS SUMMARY | 2024-12-10 14:54 | XMS_ITS | Encounter Summary ---
Author Organization [facility] Address [address] [place] [address] Care Team Providers Care Facing Cutting Machine Operator Name Role Phone Unavailable Primary Care Provider Unavailabl e Encounter Details Date Type Department Care Team (Late Contact Info) Description 12/04/2024 Clinisync Result Encounter [facility] External Department Unsolicited Golden Thomas, CNM [address] [place] [address] Social History Tobacco Use Types Packs/Day Years [...] AM EDT Routine [facility] [address] [facility] [place] [phone] Senait Chaney PA [address] [facility] [address] [place], [facility]11 documented as of this encounter [...] EDT Narrative 12/04/2024 9:51 [place] [address] Ultrasound Report Signed Patient: ALYSE MUNGUIA MR#: [id number] : 1990 Acct:[id number] Age/Sex: 34 / F ADM Date: 12/04/24 Loc: US Attending Dr: GOLDEN THOMAS APRN, CNM Ordering Physician: GOLDEN THOMAS APRN, CNM Date of Service: 12/04/24 Procedure(s): US OB BPP w non-stress Accession Number(s): [id number] cc: GOLDEN THOMAS APRN, CNM; Physician,Non-Staff M.DTony The [place] [id number] Patient Name: ALYSE MUNGUIA MRN: [facility]:[id number] date: 1990 Sex: F Assigned Patient Location: [facility] Current Patient Location: Accession/Order Number: [id number] Exam Date: 12/04/2024 21:48 Report Date: 12/04/2024 [...] Vo M.D. 12/04/2024 9:49 PM Dictation Location: [facility] [employer] Electronically authenticated by: [id number] Y Date: 12/04/2024 21:49 Dictated By: Gerard Vo D.O. Signed By: 12/04/242150 DD/ 48 TD/TT: Manager Skilled: Procedure Note Radiology, Radiologist, - 12/05/2024 [place] [address] Ultrasound Report Signed Patient: MOLLY MUNGUIA#: [id number] : 1990Acct:[id number] Age/Sex: 34 / FADM Date: 12/04/24 Loc: US Attending Dr: GOLDEN THOMAS APRN, CNM Ordering Physician: GOLDEN THOMAS APRN, CNM Date of Service: 12/04/24 Procedure(s): US OB BPP w non-stress Accession Number(s): [id number] cc: GOLDEN THOMAS APRN, CNM; Physician,Non-Staff M.DTony The [place] [address] Patient Name: ALYSE MUNGUIA MRN: [facility]:[id number] date: 1990 Sex: F Assigned Patient Location: [facility] Current Patient Location: Accession/Order Number: [id number] Exam Date: 12/04/2024 21:48 Report Date: 12/04/2024 [...] Vo M.D. 12/04/2024 9:49 PM Dictation Location: [place] [address] Electronically authenticated by: [id number] Y Date: 1:49 Dictated By: Gerard Vo D.O. Signed By:12/04/242150 DD/ 48 TD/TT: Manager Skilled: us Golden [facility] Final Resu lt documented in this encounter Visit Diagnoses Not on filedocumented in this encounter Additional Health Concerns Active Problems Noted Date Diagnosed Date OB Reminders 07/14/2024 documented as of this encounter
--- OUTSIDE RECORDS SUMMARY | 2024-12-10 14:54 | XMS_ITS | Encounter Summary ---
Author Organization [facility] Address [address] [place] [address] Care Team Providers Care Occupational Ther Name Role Phone Unavailable Primary Care Provider Unavailabl e Encounter Details Date Type Department Care Team (Late Contact Info) Description 11/26/2024 Clinisync Result Encounter [facility] External Department Unsolicited Golden Thomas, CNM [address] [place] [address] Social History Tobacco Use Types Packs/Day Years [...] AM EDT Routine [facility] [address] [place] [phone] Senait Chaney PA [address] [facility] [address] [place], [facility]11 documented as of this encounter Goals [...] EDT Narrative 11/26/2024 1:26 [place] [address] Ultrasound Report Signed Patient: ALYSE MUNGUIA MR#: [id number] : 1990 Acct:[id number] Age/Sex: 34 / F ADM Date: 11/26/24 Loc: US Attending Dr: GOLDEN THOMAS APRN, CNM Ordering Physician: GOLDEN THOMAS APRN, CNM Date of Service: 11/26/24 Procedure(s): US OB BPP w non-stress Accession Number(s): [id number] cc: GOLDEN THOMAS APRN, CNM; Physician,Non-Staff M.DTony The [place] [address] Patient Name: ALYSE MUNGUIA MRN: [facility]:[id number] date: 1990 Sex: F Assigned Patient Location: US Current Patient Location: Accession/Order Number: [id number] Exam Date: 11/26/2024 13:22 Report Date: 11/26/2024 13:23 At the request of: GOLDEN THOMAS APRN, CNM Procedure: US OB BPP w non-stress Biophysical profile. Reason for exam: Type 1 diabetes COMPARISON: 11/19/2024 TECHNIQUE: Transabdominal imaging of the gravid uterus was obtained. FINDINGS: The chief technology officer reports a BPP of 8 out of 8. MASON is normal at 12.6 cm. heart rate 126 bpm. US/US OB BPP w non-stress IMPRESSION: BPP 8 out of 8. Impression dictated by: Luc Echeverria Jr. DTonyOTony 11/26/2024 1:23 PM Dictation Location: [employer] Electronically authenticated by: [id number] Y Date: 11/26/2024 13:23 Dictated By: Luc Echeverria M.D. Signed By: 11/26/24 1326 DD/ 1323 TD/TT: Dice Spotter: Procedure Note Radiology, Radiologist, MD - 11/26/20[address] [place] [address] Ultrasound Report Signed Patient: MOLLY MUNGUIA#: [id number] : 1990Acct:[id number] Age/Sex: 34 / FADM Date: 11/26/24 Loc: US Attending Dr: GOLDEN THOMAS APRN, CNM Ordering Physician: GOLDEN THOMAS APRN, CNM Date of Service: 11/26/24 Procedure(s): US OB BPP w non-stress Accession Number(s): [id number] cc: GOLDEN THOMAS APRN, CNM; Physician,Non-Staff Vanessa The [place] [id number] Patient Name: ALYSE MUNGUIA MRN: [facility]:[id number] date: 1990 Sex: F Assigned Patient Location: US Current Patient Location: Accession/Order Number: [id number] Exam Date: 11/26/2024 13:22 Report Date: 11/26/2024 13:23 At the request of: GOLDEN THOMAS APRN, CNM Procedure: US OB BPP w non-stress Biophysical profile. Reason for exam: Type 1 diabetes COMPARISON: 11/19/2024 TECHNIQUE: Transabdominal imaging of the gravid uterus was obtained. FINDINGS: The chief technology officer reports a BPP of 8 out of 8. MASON is normal at12.6 cm. heart rate 126 bpm. US/US OB BPP w non-stress IMPRESSION: BPP 8 out of 8. Impression dictated by: Luc Echeverria Jr., D.OTony 11/26/2024 1:23 PM Dictation Location: [employer] Electronically authenticated by: [id number] Y Date: 3:23 Dictated By: Luc Echeverria M.D. Signed By:11/26/24 1326 DD/ 1323 TD/TT: Dice Spotter: us Golden Thomas CNM [facility] Final Resu lt documented in this encounter Visit Diagnoses Not on filedocumented in this encounter Additional Health Concerns Active Problems Noted Date Diagnosed Date OB Reminders 07/14/2024 documented as of this encounter
--- OUTSIDE RECORDS SUMMARY | 2024-12-10 14:54 | XMS_ITS | Encounter Summary ---
Author Organization [facility] Address [facility]-[id number] [address] [place] [address] Care Team Providers Care Lacquer Sizer Name Role Phone Unavailable Primary Care Provider Unavailabl e Encounter Details Date Type Department Care Team (Late Contact Info) Description 08/17/2024 Orders Only Maternal- Medicine at [facility] [address] [place] [phone] Chad Gregg MD [address], [address] [place] [address] Social History Tobacco Use Types Packs/Day Years [...] 8:00 AM EDT Telemedicine Maternal- Medicine at [facility] [address] [place] [address] Chad Gregg MD [address], [address] [place] [address] documented as of this encounter Visit Diagnoses Not on filedocumented in this encounter
--- OUTSIDE RECORDS SUMMARY | 2024-12-10 14:54 | XMS_ITS | Encounter Summary ---
Author Organization [facility] Address [address] [place] [address] Care Team Providers Care Validation Specialist Name Role Phone Unavailable Primary Care Provider Unavailabl e Encounter Details Date Type Department Care Team (Late Contact Info) Description 12/10/2024 Clinisync Result Encounter [facility] External Department Unsolicited Golden Thomas, CNM [address] [place] [address] Social History Tobacco Use Types Packs/Day Years [...] EDT Routine [facility] [address] [place] [phone] Senait Chaney PA [address] [facility] [address] [address] [place], [facility]11 documented as of this encounter Goals Goal Patient Goal Type Associated Problems Recent Progress Patient-Stated? Author Reminders Care Plan OB Reminders No Open Scheduling, Background documented as of this encounter Procedures Procedure Name Priority Date/Time Associated Diagnosis Comments US OB BPP W NON-STRESS 12/10/2024 12:44 PM EDT documented in this encounter Results * US OB BPP W NON-STRESS (12/10/2024 12:44 PM EDT) Anatomical Region Laterality Modality Other 12/10/2024 12:4 4 PM EDT Narrative 12/10/2024 12:47 [place] [address] Ultrasound Report Signed Patient: ALYSE MUNGUIA MR#: [id number] : 1990 Acct:[id number] Age/Sex: 34 / F ADM Date: 12/10/24 Loc: US Attending Dr: GOLDEN THOMAS APRN, CNM Ordering Physician: GOLDEN THOMAS APRN, CNM Date of Service: 12/10/24 Procedure(s): US OB BPP w non-stress Accession Number(s): [id number] cc: GOLDEN THOMAS APRN, CNM; Physician,Non-Staff M.DTony The [place] [address] Patient Name: ALYSE MUNGUIA MRN: [facility]:[id number] date: 1990 Sex: F Assigned Patient Location: US Current Patient Location: Accession/Order Number: [id number] Exam Date: 12/10/2024 12:42 Report Date: 12/10/2024 12:44 At the request of: GOLDEN THOMAS APRN, CNM Procedure: US OB BPP w non-stress Ultrasound biophysical profile HISTORY: Type 1 diabetes Adequate breathing movement, gross body movement, tone and amniotic fluid volume for total score of 8 out of 8. The amniotic fluid index is 15.3cm within normal limits. The heart rate 150 bpm. US/US OB BPP w non-stress IMPRESSION: Adequate ultrasound biophysical profile Impression dictated by: Gerard Vo M.D. 12/10/2024 12:44 PM Dictation Location: [place] [address] Electronically authenticated by: [id number] Y Date: 12/10/2024 12:44 Dictated By: Gerard Vo D.O. Signed By: 12/10/24 1247 DD/ 1244 TD/TT: Nurse Practitioner Physician Assistant: Procedure Note Radiology, Radiologist, - 12/10/2024 [place] [address] Ultrasound Report Signed Patient: ALYSE MUNGUIA LMR#: [id number] : 1990Acct:[id number] Age/Sex: 34 / FADM Date: 12/10/24 Loc: US Attending Dr: GOLDEN THOMAS APRN, CNM Ordering Physician: GOLDEN THOMAS APRN, CNM Date of Service: 12/10/24 Procedure(s): US OB BPP w non-stress Accession Number(s): [id number] cc: GOLDEN THOMAS APRN, CNM; Physician,Non-Staff M.Edwardo The [place] [address] Patient Name: ALYSE MUNGUIA MRN: [facility]:[id number] date: 1990 Sex: F Assigned Patient Location: US Current Patient Location: Accession/Order Number: [id number] Exam Date: 12/10/2024 12:42 Report Date: 12/10/2024 12:44 At the request of: GOLDEN THOMAS APRN, CNM Procedure: US OB BPP w non-stress Ultrasound biophysical profile HISTORY: Type 1 diabetes Adequate breathing movement, gross body movement, tone and amniotic fluid volume for total score of 8 out of 8. The amniotic fluidindex is 15.3cm within normal limits. The heart rate 150 bpm. US/US OB BPP w non-stress IMPRESSION: Adequate ultrasound biophysical profile Impression dictated by: Gerard Vo M.D. 12/10/2024 12:44 PM Dictation Location: [place] [address] Electronically authenticated by: [id number] Y Date: 2:44 Dictated By: Gerard Vo D.O. Signed By:12/10/24 1247 DD/ 1244 TD/TT: Nurse Practitioner Physician Assistant: us Golden Thomas CNM [facility] Final Resu lt documented in this encounter Visit Diagnoses Not on filedocumented in this encounter Additional Health Concerns Active Problems Noted Date Diagnosed Date OB Reminders 07/14/2024 documented as of this encounter
--- OUTSIDE RECORDS SUMMARY | 2024-12-10 14:54 | XMS_ITS | Encounter Summary ---
Author Organization [facility] Address [address] [place] [address] Care Team Providers Care Aerophysicist Name Role Phone Unavailable Primary Care Provider [...] 12/17/2024 8:40 AM EDT Routine [facility] [address] [place] [address] Senait Chaney PA [address] [facility] [address] [place], [facility]11 documented as of this encounter [...]
--- OUTSIDE RECORDS SUMMARY | 2024-12-10 14:54 | XMS_ITS | Encounter Summary ---
Author Organization [facility] Address [address] [place] [address] Care Team Providers Care Raw Stock Machine Feeder Name Role Phone Unavailable Primary Care Provider Unavailabl e Encounter Details Date Type Department Care Team (Latest Contact Info) Description 11/17/2024 [facility] [address] [place] [address] Floridalma Thomas CN [address] [place], [place] [phone] OB follow up transabdominal approach Social History [...] AM EDT Routine [facility] [address] [place] [address] Senait Chaney PA [address] [facility] [address] [place], [place] [phone] documented as of this encounter Goals Goal Patient Goal Type Associated Problems Recent Progress Patient-Stated? Author Reminders Care Plan OB Reminders No Open Scheduling, Background documented as of this encounter Visit Diagnoses Not on filedocumented in this encounter Additional Health Concerns Active Problems Noted Date Diagnosed Date OB Reminders 07/14/2024 documented as of this encounter
--- OUTSIDE RECORDS SUMMARY | 2024-12-10 14:54 | XMS_ITS | Encounter Summary ---
Author Organization [facility] Address [address] [place] [address] Care Team Providers Care Supervisor Mending Name Role Phone Unavailable Primary Care Provider Unavailabl e Encounter Details Date Type Department Care Team (Late st Contact Info) Description 06/24/2024 Telephone [facility] [address] [place] [phone] Floridalma Thomas CN [address] [place], [place] [phone] Social History Tobacco Use Types Packs/Day Years [...] just give me a call back at [phone].Thank you. documented in this encounter Plan of Treatment Upcoming Encounters Date Type Department Care Team (Late st Contact Info) Description 12/17/2024 8:40 AM EDT Routine [facility] [address] [facility] [place] [phone] Senait Chaney PA [address] [facility] [place] [address] documented as of this encounter Visit Diagnoses Not on filedocumented in this encounter
--- OUTSIDE RECORDS SUMMARY | 2024-12-10 14:54 | XMS_ITS | Encounter Summary ---
Author Organization [facility] [employer] [facility] tem Address [facility]-[id number] [address] [place] [address] Care Team Providers Care Manager Student Services Name Role Phone Unavailable Primary Care Provider Unavailabl e Encounter Details Date Type Department Care Team (Late Contact Info) Description 12/03/2024 Orders Only [facility] [address] [facility] [address] [place] [address] Dolores Pride MD [address] [facility] [address] [place] [address] Social History Tobacco Use Types Packs/Day Years [...] EDT Telemedicine Maternal- Medicine at [facility] [address] [place] [address] Chad Gregg MD [address], [address] [place] [address] documented as of this encounter Visit Diagnoses Not on filedocumented in this encounter
--- OUTSIDE RECORDS SUMMARY | 2024-12-10 14:54 | XMS_ITS | Clinical Summary ---
Author Organization [facility] Address [address] [place] [address] Care Team Providers Care School Boat Driver Name Role Phone Unavailable Primary Care Provider Unavailabl e Allergies No known active allergies Medications insulin lispro (HumaLOG Gregorio KwikPen) 100 UNIT/ML pen INJECT UP TO 50 UNITS PER DAY Active JN-Pjs-XE-Thorsby -3 ( Gummies/DHA & FA) 0.4-32.5 MG [...] pen 10 units 5 Active ReliOn Pen [place] 32G X 4 MM misc USE 5-6 TIMES DAILY WITH INSULIN 5 Active Encounters Date Type Department Care Team Description 12/10/2024 8:30 AM EDT Routine [facility] [address] [place] [address] Gabriel Mendez DO Third trimester ([facility]); 35 weeks gestation of ([facility]) 12/10/2024 Clinisync Result Encounter [facility] External Department Unsolicited Golden Thomas CNM 12/10/2024 Bamboo flowsheet [facility] [address] [place] [address] Gabriel Mendez, 12/09/2024 Travel 12/07/2024 Results Follow-Up [facility] [address] [facility] [place] [address] Golden Thomas, KAMALJIT US OB BPP W NON-STRESS 12/04/2024 Clinisync Result Encounter NOM[facility] External Department Unsolicited Golden Thomas, JONES 11/26/2024 8:30 AM EDT Routine [facility] [address] [facility] [place] [phone] Gabriel Mendez, DO 33 weeks gestation of ([facility]); Type 1 diabetes mellitus without complication ([facility]) 11/26/2024 Results Follow-Up [facility] [address] [facility] [place] [phone] Golden Thomas CNM US OB GROWTH 11/26/2024 Results Follow-Up [facility] [address] [facility] [place] [phone] Golden Thomas CNM US OB BPP W NON-STRESS 11/26/2024 Clinisync Result Encounter NOM[facility] External Department Unsolicited Golden Thomas CNM 11/26/2024 Clinisync Result Encounter NOMS External Department Unsolicited Golden Thomas CNM 11/26/2024 Bamboo flowsheet [facility] [address] [facility] [place] [address] Gabriel Mendez, 11/25/2024 Travel 11/23/2024 Results Follow-Up [facility] [address] [facility] [place] [phone] Golden Thomas, KAMALJIT US OB BPP W NON-STRESS 11/20/2024 Clinisync Result Encounter NOM[facility] External Department Unsolicited Golden Thomas CNM 11/17/2024 Results Follow-Up [facility] [address] [facility] [place] [address] Golden Thomas CNM US OB follow up transabdominal approach 11/16/2024 4:00 PM EDT Routine [facility] [address] [facility] [address] Golden Thomas CNM Third trimester ([facility]) (Primary Dx); Type 1 diabetes mellitus without complication (HCC); Insulin controlled gestational diabetes mellitus (GDM) in second trimester ([facility]); Encounter for supervision of other normal , third trimester ([facility]); Screening for iron deficiency anemia 11/16/2024 Bamboo flowsheet [facility] [address] [facility] [place] [address] Golden Thomas CNM 11/09/2024 3:50 PM EDT Routine [facility] OBPARVE[facility] [address] [facility] [place] [address] Gabriel Mendez, Third trimester ([facility]); 31 weeks gestation of ([facility]) 11/09/2024 Bamboo flowsheet [facility] [address] [facility] [place] [address] Gabriel Mendez, 11/09/2024 Travel 11/02/2024 4:30 PM EDT Ancillary Procedure [facility] [address] [place] [address] related condition in third trimester ([facility]) 11/02/2024 Travel 10/26/2024 Travel 10/21/2024 Orders Only [facility] [address] [facility] [place] [address] Golden Thomas CNM related condition in third trimester ([facility]) 10/14/2024 8:30 AM EDT [facility]ine [facility] [address] [facility] [place] [phone] Golden Thomas CNM Type 1 diabetes mellitus without complication (HCC) (Primary Dx); related condition in third trimester ([facility]); Amniotic fluid leaking ([facility]); Encounter for supervision of other normal , second trimester ([facility]) 10/14/2024 Bamboo flowsheet [facility] [address] [place] [address] Golden Thomas CNM 10/13/2024 Travel 09/16/2024 8:30 AM EDT Routine [facility] [address] [facility] [place] [address] Golden Thomas CNM Insulin controlled gestational diabetes mellitus (GDM) in second trimester ([facility]) (Primary Dx); Encounter for supervision of other normal , second trimester ([facility]); Type 1 diabetes mellitus without complication (HCC) 09/16/2024 [employer] flowsheet [facility] [address] [place] [address] Golden Thomas CNM 09/09/2024 Travel from Last [...] (189 lb) 12/10/2024 8:37 AM EDT Height 160 cm (5' 3 ) 05/27/2024 8:49 AM EST Body Mass Index 33.48 05/27/2024 8:49 AM EST Plan of Treatment Upcoming Encounters Date Type Department Care Team (Late st Contact Info) Description 12/17/2024 8:40 AM EDT Routine [facility] [address] [facility] [place] [phone] Senait Chaney PA [address] [place] [address] Goals Goal Patient Goal Type Associated Problems Recent Progress Patient-Stated? Author Reminders Care Plan OB Reminders No Open Scheduling, Background Procedures Procedure Name Priority Date/Time Associated Diagnosis Comments US OB BPP W NON-STRESS 12/10/2024 12:44 PM EDT POCT URINALYSIS DIPSTICK Routine 12/10/2024 8:48 AM EDT Third trimester ([facility]) US OB BPP W NON-STRESS 12/04/2024 9:49 PM EDT US OB GROWTH 11/26/2024 1:25 PM EDT US OB BPP W NON-STRESS 11/26/2024 1:23 PM EDT POCT URINALYSIS DIPSTICK Routine 11/26/2024 9:09 AM EDT 33 weeks gestation of ([facility]) US OB BPP W NON-STRESS 11/20/2024 10:16 AM EDT US OB FOLLOW UP TRANSABDOMINAL APPROACH Routine 11/02/2024 4:37 PM EDT related condition in third trimester ([facility]) from Last 3 Months Results * US OB BPP W NON-STRESS (12/10/2024 12:44 PM EDT) Only the most recent of4 resultswithin the time period is included. Anatomical Region Laterality Modality Other 12/10/2024 12:4 4 PM EDT Narrative 12/10/2024 12:47 PM EDT [place] [id number] Ultrasound Report Signed Patient: ALYSE MUNGUIA MR#: [id number] : 1990 Acct:[id number] Age/Sex: 34 / F ADM Date: 12/10/24 Loc: US Attending Dr: GOLDEN THOMAS APRN, CNM Ordering Physician: GOLDEN THOMAS APRN, CNM Date of Service: 12/10/24 Procedure(s): US OB BPP w non-stress Accession Number(s): [id number] cc: GOLDEN THOMAS APRN, CNM; Physician,Non-Staff M.DTony The [address] [address] Patient Name: ALYSE MUNGUIA MRN: [facility]:[id number] date: 1990 Sex: F Assigned Patient Location: Current Patient Location: Accession/Order Number: [id number] Exam Date: 12/10/2024 12:42 Report Date: 12/10/2024 [...] Vo M.D. 12/10/2024 12:44 PM Dictation Location: [place] [address] Electronically authenticated by: [id number] Y Date: 12/10/2024 12:44 Dictated By: Gerard Vo D.O. Signed By: 12/10/24 1247 DD/ 1244 TD/TT: Back Panel Padder: Procedure Note Radiology, Radiologist, MD - 12/10/[address] [address] Ultrasound Report Signed Patient: ALYSE MUNGUIA LMR#: [id number] : 1990Acct:[id number] Age/Sex: 34 / FADM Date: 12/10/24 Loc: US Attending Dr: GOLDEN THOMAS APRN, CNM Ordering Physician: GOLDEN THOMAS APRN, CNM Date of Service: 12/10/24 Procedure(s): US OB BPP w non-stress Accession Number(s): [id number] cc: GOLDEN THOMAS APRN, CNM; Physician,Non-Staff M.DTony The [place] [id number] Patient Name: ALYSE MUNGUIA MRN: [id number] date: 1990 Sex: F Assigned Patient Location: US Current Patient Location: Accession/Order Number: [id number] Exam Date: 12/10/2024 12:42 Report Date: 12/10/2024 [...] Vo M.D. 12/10/2024 12:44 PM Dictation Location: [place] [address] Electronically authenticated by: [id number] Y Date: 2:44 Dictated By: Gerard Vo D.O. Signed By:12/10/24 1247 DD/ 1244 TD/TT: Back Panel Padder: us Golden Thomas CNM [facility] Final Resu lt * (ABNORMAL) POCT urinalysis dipstick manually resulted (12/10/2024 8:48 AM EDT) Only the most recent of2 resultswithin the time period is included. Color, UA Yellow Clarity, UA Clear Glucose, UA Negative Negative - 2000(110) ++++ mg/dL Bilirubin, UA Negative Negative - 4(70) +++ mg/dL Ketones, UA Negative Negative - 160(16) ++++ mg/dL Spec Grav, UA 1.005 1 - 1.03 Blood, UA Positive Negative - 50 Bahman/mcL pH, UA 7.0 5 - 9 Protein, UA Negative Negative - 1999(20) ++++ mg/dL Urobilinogen, UA 1.0 0.2 - 12 mg/dL Leukocytes, UA Negative Negative - 500+++ Leisa/mcL Nitrite, UA Negative Negative - Positive Urine 12/10/2024 8:48 AM EDT [facility] DO POINT OF CARE TEST ENTER/EDIT OR DERABLES Final Result * US OB GROWTH (11/26/2024 1:25 PM EDT) Anatomical Region Laterality Modality Other 11/26/2024 1:25 PM EDT Narrative 11/26/2024 1:28 [place] [address] Ultrasound Report Signed Patient: ALYSE MUNGUIA MR#: [id number] : 1990 Acct:[id number] Age/Sex: 34 / F ADM Date: 11/26/24 Loc: US Attending Dr: GOLDEN THOMAS APRN, CNM Ordering Physician: GOLDEN THOMAS APRN, CNM Date of Service: 11/26/24 Procedure(s): US OB growth Accession Number(s): [id number] cc: GOLDEN THOMAS APRN, CNM; Physician,Non-Staff M.D. [address] [address] Patient Name: ALYSE MUNGUIA MRN: [facility]:[id number] date: 1990 Sex: F Assigned Patient Location: [facility] Current Patient Location: Accession/Order Number: [id number] Exam Date: 11/26/2024 13:23 Report Date: 11/26/2024 [...] Jr., D.O. 11/26/2024 1:25 PM Dictation Location: [place] [address] Electronically authenticated by: [id number] Y Date: 11/26/2024 13:25 Dictated By: Luc Echeverria M.D. Signed By: 11/26/24 1328 DD/ 1325 TD/TT: Back Panel Padder: Procedure Note Radiology, Radiologist, MD - 11/26/2024 [place] [address] Ultrasound Report Signed Patient: MOLLY MUNGUIA#: [id number] : 1990Acct:[id number] Age/Sex: 34 / FADM Date: 11/26/24 Loc: US Attending Dr: GOLDEN THOMAS APRN, CNM Ordering Physician: GOLDEN THOMAS APRN, CNM Date of Service: 11/26/24 Procedure(s): US OB growth Accession Number(s): [id number] cc: GOLDEN THOMAS APRN, CNM; Physician,Non-Staff MGraciela The [place] [id number] Patient Name: ALYSE MUNGUIA MRN: [id number] date: 1990 Sex: F Assigned Patient Location: [facility] Current Patient Location: Accession/Order Number: [id number] Exam Date: 11/26/2024 13:23 Report Date: 11/26/2024 [...] Jr., D.O. 11/26/2024 1:25 PM Dictation Location: [facility] Electronically authenticated by: [id number] Y Date: 3:25 Dictated By: Luc Echeverria M.D. Signed By:11/26/24 1328 DD/ 1325 TD/TT: Back Panel Padder: us Golden Thomas CNM [facility] Final [...] Luc Carter MD us Golden Thomas CNM [facility] US PROCEDURES Final R esult from Last 3 Months Additional Health Concerns Active Problems Noted Date Diagnosed Date OB Reminders 07/14/[address] [place] [address] [employer]
--- OUTSIDE RECORDS SUMMARY | 2024-12-10 14:54 | XMS_ITS | Encounter Summary ---
Author Organization [facility] [employer] [facility]ly [facility] tem Address [id number] [address] [place] [address] Care Team Providers Care Residential Tech Name Role Phone Unavailable Primary Care Provider Unavailabl e Encounter Details Date Type Department Care Team (Late Contact Info) Description 12/08/2024 Orders Only [facility] Physicians [place] [facility] [address] [place] [address] Dolores Pride MD [address] [place] [address] Social History Tobacco Use Types Packs/Day Years [...] 8:00 AM EDT Telemedicine [facility] [address] [place] [address] Chad Gregg MD [address] [place] [address] documented as of this encounter Visit Diagnoses Not on filedocumented in this encounter
--- OUTSIDE RECORDS SUMMARY | 2024-12-10 14:55 | XMS_ITS | Encounter Summary ---
Author Organization [facility] Address [address], [address] [place] [address] Care Team Providers Care Flight Communications Operator Name Role Phone Unavailable Primary Care Provider Unavailabl e Reason for Referral * Imaging (Routine) - Closed Specialty Diagnoses / Procedures Referred By Sejal lugo Referred To Contact Radiology Diagnoses Brain cyst Procedures MRI BRAIN W WO CONTRAST Anthony Sherman MD [address] [facility] [address] [place] [address] Phone: tel: fax: Referral ID Status Reason Start Date Expiration Date Visits Re quested Visits Authorized [id number] Closed 08/06/2023 09/20/2023 1 1 Encounter Details Date Type Department Care Team (Latest Contact Info) Description 08/08/2023 Transcribe Orders [facility] [address] [place], [place] [phone] Anthony Sherman MD [address] [place] [address] Brain cyst (Primary Dx) Social [...]
--- OUTSIDE RECORDS SUMMARY | 2024-12-10 14:55 | XMS_ITS | Encounter Summary ---
Author Organization [facility] Address [address] [place] [address] Care Team Providers Care Fire Systems Inspector Name Role Phone Unavailable Primary Care Provider Unavailabl e Reason for Visit * Reason Comments Medication Refill Encounter Details Date Type Department Care Team (Late st Contact Info) Description 05/16/2021 Refill [facility]icians Endocrine [address] [place], [place] [phone] Stefany Tariq MD [address] [place] [address] Medication Refill Social History Tobacco Use Types [...]
== END 2024-12-10 14:51 | disposition home or self-care (01) ==
LOC: LAB 14:50
PROVIDERS: Visit Provider Obstetrics & Gynecology
DX: Z34.93 Encounter for supervision of normal pregnancy, unspecified, third trimester (principal); Z3A.35 35 weeks gestation of pregnancy
CPT/HCPCS: 87081

== ENCOUNTER 2024-12-14 19:57 | Outpatient (OUT) | payer OTHER, SELFPAY ==
[2024-12-14 20:08] VITALS: BP 115/61; PULSE 75
== END 2024-12-14 20:44 | disposition home or self-care (01) ==
LOC: FBCO 19:58 → FBC 20:04
PROVIDERS: Visit Provider Midwife
DX: O24.313 Unspecified pre-existing diabetes mellitus in pregnancy, third trimester (principal)
CPT/HCPCS: 59025

== ENCOUNTER 2024-12-17 18:49 | Outpatient (OUT) | payer OTHER, SELFPAY ==
--- NOTE | 2024-12-17 18:59 | US_ITS ---
[place] [address] Patient Name: PEPITO LYONS MRN: [facility]:[id number] date: 1990 Sex: F Assigned Patient Location: Current Patient Location: Accession/Order Number: [id number] Exam Date: 12/17/2024 19:00 Report Date: 12/18/2024 00:50 At the request of: GOLDEN YANG APRN, CNM Procedure: US OB BPP w non-stress US OB BPP w non-stress 12/17/2024 7:25 PM SIGNS AND SYMPTOMS: ^GESTATIONAL DIABETES MELLITUS PROTOCOL: Transabdominal sonographic imaging of the gravid uterus. COMPARISON: 12/10/2024 FINDINGS: heart rate: 151 bpm Amniotic fluid index: 11.42 cm. The deeper surgical pocket measures 3.35 cm. Estimated gestational age: 36 weeks 0 days. Biophysical profile: breathing movements: 2/2 Gross body movements: 2/2 tone: 2/2 Amniotic fluid volume: 2/2 US/US OB BPP w non-stress IMPRESSION: Biophysical profile: 11/27 Impression dictated by: George Robbins M.D. 12/18/2024 12:50 AM Dictation Location: [employer] Electronically authenticated by: [id number] Y Date: 12/18/2024 00:50
[2024-12-17 19:33] VITALS: BP 119/70; PULSE 68
== END 2024-12-17 20:00 | disposition home or self-care (01) ==
LOC: US 18:50 → FBC 19:28
PROVIDERS: Visit Provider Midwife
DX: O24.313 Unspecified pre-existing diabetes mellitus in pregnancy, third trimester (principal); Z3A.36 36 weeks gestation of pregnancy; O99.283 Endocrine, nutritional and metabolic diseases complicating pregnancy, third trimester; E03.9 Hypothyroidism, unspecified
CPT/HCPCS: 76818

== ENCOUNTER 2024-12-24 05:27 | Inpatient (IN) | payer BC, SELFPAY ==
[2024-12-24] VITALS (33 sets, daily range): BP systolic 108–135; BP diastolic 68–85; PULSE 55–77; TEMP 36.4–36.9; O2SAT 96–98
[2024-12-24 07:11] LABS: Hematocrit 32.5 % (36.0-48.0); Hemoglobin 11.4 g/dL (12.0-16.0); Immature Granulocytes Abs Auto 0.05 10^3/uL (0.00-0.03); Immature Granulocytes Pct Auto 0.5 % (0.0-0.5); Lymphocytes Absolute Auto 2.9 10^3/uL (1.2-3.8); Mean Corpuscular HGB Conc 35.1 g/dL (29.9-35.2); Mean Corpuscular Hemoglobin 31.3 pg (26.7-34.0); Mean Corpuscular Volume 89.3 fL (81.0-99.0); Platelet Count 292 10^3/uL (150-450); Red Blood Count 3.64 10^6/uL (4.20-5.40); White Blood Count 10.3 10^3/uL (4.0-11.0)
[2024-12-24] MEDS: CEFAZOLIN SODIUM/DEXTROSE,ISO 2 GM/50 ML PIGGYBACK IV ×2 (07:19→13:23)
[2024-12-24] MEDS: CITRIC ACID/SODIUM CITRATE 30 ML SOLUTION ORACIT SHOHL'S SOLN PO (07:19)
--- NOTE | 2024-12-24 08:09 | PC.NURSE ---
0809- Repeat section delivery performed by Dr. Mendez. Viable baby girl delivered at this time. Tactile stimulation and bulb suction of mouth and nose performed by OR staff. Spontaneous cry noted. shown to parents over sterile drape while maintaining sterility. 0810- arrives to radiant warmer. Tactile stimulation and bulb suction of nose per this RN. Purcell crying spontaneously, tone flexed and active movement noted of all 4 extremities, HR 150s, RR 30s, cyanotic throughout. Lungs moist throughout. Tactile stimulation continued, new blanket applied. 0813- Deep suction of performed per this RN with copious amounts of clear fluid noted. 0814- HR 140s, RR 50s, Temp 98F axillary, tone flexed, active movement of all 4 extremities, spontaneous cry and respiratory effort noted, and acrocyanosis noted. 0815- Purcell placed next to mom on operating table at face. Dad supports at head of bed.
--- NOTE | 2024-12-24 08:32 | PM.ONB ---
Brief Operative Note Date of procedure: 12/24/24 Pre-op diagnosis general: iup at 37wks, previous c/s, dm type 1 Post-op diagnosis: same as pre-op Procedure: NAME OF PROCEDURE: [ section ] PROCEDURE: Patient was taken back to the Operating Room where she was given a spinal anesthesia with Duramorph without difficulty. She was prepped and draped in the normal sterile fashion. A Pfannenstiel skin incision was then made 2 cm above the symphysis pubis and carried down to underlying rectus fascia using a Bovie. The fascia was incised in the midline and extended laterally using Osorio scissors. Two Penny clamps were placed on the superior aspect of the fascia and dissected off the underlying rectus muscles. The same was performed on the inferior aspect as well. The muscles were then in the midline. Peritoneum was identified and entered bluntly. The peritoneum was then extended superiorly and inferiorly with good visualization of the bladder. The bladder blade was inserted. A low transverse incision was made on the patient's uterus and extended laterally digitally. The was then delivered atraumatically after the bladder blade was removed in the cephalic position. The cord was clamped and cut. Cord blood was obtained. The infant was handed off to awaiting team. The patient's placenta was spontaneously delivered. The uterus was then exteriorized. The uterus was cleared of all clots and debris. The bladder blade was reinserted. The patient's uterine incision was closed using #0 Vicryl in a running lock fashion. Excellent hemostasis was assured. The uterus was then returned to the patient's abdomen. The patient's abdomen was copiously irrigated using warm saline. Peritoneal gutters were cleared of all clots and debris. Again excellent hemostasis was assured. The patient's peritoneum was closed using 3-0 Vicryl in a running fashion. The patient's fascia was closed using #0 Vicryl in a running fashion. The patient's skin was closed using 4-0 Vicryl subcuticularly. The patient tolerated the procedure well. Sponge, lap, and needle counts were correct x2. The patient was taken to the Recovery Room in stable condition. Anesthesia: spinal Surgeon: Gabriel Mendez Electrical Technician: GOLDEN YANG Estimated blood loss (mL): 575 Pathology: none sent Condition: stable Disposition: floor Urinary Catheter Management Urinary Catheter Management Urethral: Cath placed during this visit: no
--- NOTE | 2024-12-24 08:33 | PM.OBPRCCS ---
Procedure Pre-op/Post-op diagnoses: Pre-Op/Post-Op Diagnoses Operation Date: 12/24/24 07:30 <No data on this case meets the specified criteria> Procedure: Procedures Operation Date: 12/24/24 07:30 Actual Procedure Side Surgeon p Repeat (Rivka patient) Not Applicable Gabriel Mendez DO Water Purification Chemist: GOLDEN YANG Estimated blood loss (mL): 575 Disposition: floor Anesthesia type: Spinal
--- NOTE | 2024-12-24 09:07 | PM.EN ---
Event Note Event Note: Boiler Cleaner Note: I first assisted Dr Mendez as directed. I closed the SQ layer with 3-0 Vicryl independently without difficulty. I then closed the incision with 4-0 vicryl independently without difficulty. Hemostasis noted at the completion of the case. Patient tolerated procedure well.
[2024-12-24 09:32] LABS: Cannabinoid Screen Urine NEGATIVE (NEGATIVE); Methamphetamines Screen Urine NEGATIVE (NEGATIVE); Tricyclic Antidepressant Urine NEGATIVE (NEGATIVE)
[2024-12-24] MEDS: 0.9 % SODIUM CHLORIDE 1,000 ML 125 ML IV (13:22)
[2024-12-24] MEDS: INSULIN PUMP 1 EACH SUBQ ×2 (13:22→20:05)
[2024-12-24] MEDS: KETOROLAC TROMETHAMINE 30 MG/ML VIAL IVP (16:44)
[2024-12-24] MEDS: ENOXAPARIN SODIUM 40 MG/0.4 ML SYRINGE SUBQ (21:05)
[2024-12-25] MEDS: INSULIN PUMP 1 EACH SUBQ ×3 (00:15→20:26)
[2024-12-25 05:19] VITALS: BP 115/78; TEMP 36.8
[2024-12-25] MEDS: KETOROLAC TROMETHAMINE 30 MG/ML VIAL IVP ×3 (05:22→20:25)
[2024-12-25 06:06] LABS: Hematocrit 29.5 % (36.0-48.0); Hemoglobin 10.1 g/dL (12.0-16.0); Immature Granulocytes Abs Auto 0.08 10^3/uL (0.00-0.03); Immature Granulocytes Pct Auto 0.5 % (0.0-0.5); Lymphocytes Absolute Auto 3.5 10^3/uL (1.2-3.8); Mean Corpuscular HGB Conc 34.2 g/dL (29.9-35.2); Mean Corpuscular Hemoglobin 30.9 pg (26.7-34.0); Mean Corpuscular Volume 90.2 fL (81.0-99.0); Platelet Count 301 10^3/uL (150-450); Red Blood Count 3.27 10^6/uL (4.20-5.40); White Blood Count 15.5 10^3/uL (4.0-11.0)
--- NOTE | 2024-12-25 07:36 | P.OBPN_ITS ---
OB - PN: Subj Subjective Patient comments: no complaints and pain well controlled Bronson status: doing well Exam Constitutional Vital Signs, click to edit/add: Last Vital Signs Temp 98.2 F 12/25/24 05:19 Pulse 72 12/24/24 11:17 Resp 16 12/24/24 16:50 BP 115/78 12/25/24 05:19 Pulse Ox 98 12/24/24 11:17 O2 Del Method Room Air 12/25/24 05:00 Documenting provider has reviewed patient's vital signs: yes Common normals: no apparent distress Respiratory Common normals: normal respiratory effort and clear to auscultation bilaterally Cardio Common normals: regular rate and regular rhythm GI Common normals: Normal to inspection, nondistended, normoactive bowel sounds present Extremity Common normals: no clubbing, cyanosis or edema and no calf tenderness Results Labs Labs: Short CBC 12/25/24 Range/Units 05:53 WBC 15.5 H (4.0-11.0) 10^3/uL Hgb 10.1 L (12.0-16.0) g/dL Hct 29.5 L (36.0-48.0) % Plt Count 301 (150-450) 10^3/uL Urinary Catheter Management Urinary Catheter Management Urethral: Cath placed during this visit: yes, but has since been removed by the nu rse Insertion date: 12/24/24 Insertion time: 07:42 Removal date: 12/24/24 Removal time: 16:55 OB - PN: A/P Plan - day: 1 Plan: routine postop care Time Spent with Patient Time: Total time spent is greater than 50% in coordination of care (as documented) at patient's floor/unit and/or counseling patient: Total time spent with greater than 50% in coordination of care (as documented) at patient's floor/unit and/or counseling patient: less than 15 minutes
[2024-12-25 08:10] VITALS: BP 129/79; PULSE 76; TEMP 36.9
[2024-12-25 08:43] VITALS: BP 129/79
[2024-12-25] MEDS: DOCUSATE SODIUM 100 MG CAPSULE PO ×2 (08:48→20:26)
--- NOTE | 2024-12-25 13:08 | SWNOTE1 ---
SW met with pt and father of baby in room. They voiced they do have everything they need at home for baby. They have 2 other children who are 2 1/2 and 3 1/2. They will be in to see baby today. Pt and deny any needs and do not need any resources at this time. SW to follow as needed.
[2024-12-25 16:23] VITALS: BP 122/71
[2024-12-25 16:29] VITALS: BP 121/70; TEMP 36.7
[2024-12-25] MEDS: ENOXAPARIN SODIUM 40 MG/0.4 ML SYRINGE SUBQ (20:25)
[2024-12-26 00:25] VITALS: BP 125/69; TEMP 36.7
[2024-12-26] MEDS: INSULIN PUMP 1 EACH SUBQ ×2 (00:30→06:00)
[2024-12-26] MEDS: DOCUSATE SODIUM 100 MG CAPSULE PO (08:22)
[2024-12-26] MEDS: KETOROLAC TROMETHAMINE 30 MG/ML VIAL IVP (08:22)
[2024-12-26 08:30] VITALS: BP 125/71; PULSE 72; TEMP 36.8; O2SAT 98
--- NOTE | 2024-12-26 09:46 | PM.OBDS ---
DS: Providers Provider Date of admission: 12/24/24 05:27 Primary care physician: Non-Staff Physician, Admitting clinician: Gabriel Mendez Attending physician on admission: Gabriel Mendez Attending physician on discharge: Manny Taveras Discharging clinician: Manny Tvaeras Anticipated date of discharge: 12/26/24 DS: Diagnosis Discharge Diagnosis (1) Type 1 diabetes: Qualifiers: Diabetes mellitus complication status: without complication Qualified Code(s): E10.9 - Type 1 diabetes mellitus without complications Plan DAY #2 pod doing well. Pt for D/C to home today OB - DS: Summary Hospital Course Hospital Course: uneventful Time spent discussing smoking cessation with patient: 3 to 10 minutes Peripartum Data - Procedures: Procedures Operation Date: 12/24/24 07:30 Actual Procedure Side Surgeon p Repeat (Rivka patient) Not Applicable Gabriel Mendez DO Peripartum Data - Vaginal Delivery Procedures: Procedures Operation Date: 12/24/24 07:30 Actual Procedure Side Surgeon p Repeat (Rivka patient) Not Applicable Gabriel Mendez DO Complications complications: none Delivery method: section Gender: female Discharge plan: home Status at Discharge Functional status at discharge: independent ambulation Overall status at discharge: patient is back to baseline Time Spent with Patient Time attestation: Total time spent providing and/or coordinating discharge services: Time spent: less than 30 minutes Specific discharge activities: No heavy lifting or bending for 4-6 weeks Exam Constitutional Vital Signs, click to edit/add: Last Vital Signs Temp 98.2 F 12/26/24 08:30 Pulse 72 12/26/24 08:30 Resp 16 12/26/24 08:30 BP 125/71 12/26/24 08:30 Pulse Ox 98 12/26/24 08:30 O2 Del Method Room Air 12/26/24 00:15 Documenting provider has reviewed patient's vital signs: yes Common normals: no apparent distress, average body habitus, oriented x3, no limitations, healthy appearing, alert and well nourished General appearance: cooperative, comfortable, well kempt and well developed Orientation/consciousness: Yes awake, Yes oriented to person, Yes oriented to place and Yes oriented to time Respiratory Common normals: normal respiratory effort Effort & inspection: able to speak in complete sentences Auscultation: clear to auscultation bilaterally GI Common normals: Normal to inspection, nondistended, normoactive bowel sounds present Inspection: normal to inspection (Incision dry and clear w/o drainage) Auscultation: normoactive bowel sounds Back & Pelvis Pelvis: other (Mild lochia rubra present) Extremity Common normals: normal to inspection and no calf tenderness Discharge Plan Discharge Disposition: Home, Self-Care Condition: Good Assessment: Patient is POD #2 doing well Health Concerns: None Plan of Treatment: Patient to return for follow up in 2 weeks Discharge Medications: New ibuprofen 400 mg Tablet 800 mg PO Q8H 30 Days Qty: 180 1RF simethicone [Gas Relief 80 (simethicone)] 80 mg Tablet,Chewable 80 mg PO QID PRN (Reason: Abdominal Distention) Qty: 120 0RF Continued insulin lispro 100 unit/mL solution Activity: increase activity as tolerated Diet: regular diet Print Language: Guatem[place] Patient Instructions: (DC) Activity Restrictions/Additional Instructions: No heavy lifting or bending for 4-6 weeks Forms: Portal Instructions
== END 2024-12-26 12:30 | disposition home or self-care (01) | DRG 788 ==
PROVIDERS: Admitting Provider Midwife; Visit Provider Obstetrics & Gynecology
PROC: 10D00Z1 Extraction of Products of Conception, Low, Open Approach (ICD-10-PCS; CPT 59514; principal; 2024-12-24 07:30)
DX: O24.02 Pre-existing type 1 diabetes mellitus, in childbirth (principal); O34.211 Maternal care for low transverse scar from previous cesarean delivery; Z3A.37 37 weeks gestation of pregnancy; Z37.0 Single live birth; Z79.4 Long term (current) use of insulin; O99.824 Streptococcus B carrier state complicating childbirth; Z90.49 Acquired absence of other specified parts of digestive tract
CPT/HCPCS: 36415; 51702; 64488; 80307; 85025; 86850; 86900; 86901; 94667; 94668; J0131; J0665; J0690; J1100; J1200; J1650; J1885; J2274; J2371; J2405; J2590